=== PATIENT | female | born 1985 | race Two or more races ===

== ENCOUNTER 2016-09-14 17:58 | Emergency (ER) | payer MEDICAID ==
--- NOTE | 2016-09-14 18:05 | ER Document Report ---
ED Medical Screen (RME) - General Stated Complaint: RIGHT LOWER BACK PAIN Notes: heavy lifting today while helping a family member move and twisted funny with sudden right lower back pain. right sciatica. denies UI/SI, saddle anesthesia PMH: htn I have greeted and performed a rapid initial assessment of this patient. A comprehensive ED assessment and evaluation of the patient, analysis of test results and completion of the medical decision making process will be conducted by additional ED providers. TRAVEL OUTSIDE OF THE [place] IN LAST 30 DAYS: No - Related Data Allergies/Adverse Reactions: eggs Allergy (Uncoded 09/14/16 18:05) Past Medical History - Past Medical History Cardiac Medical History: Reports: Hx Hypertension - GESTATIONAL Pulmonary Medical History: Reports: Hx Bronchitis - "I have REactive airway, use inhaler once in awhile" Psychiatric Medical History: Reports: Hx Attention Deficit Hyperactivity Disorder Past Surgical History: Reports: Hx Section - 2, Hx Genitourinary Surgery - Immunizations Immunizations up to date: Yes Hx Diphtheria, Pertussis, Tetanus Vaccination: Yes
[2016-09-14] MEDS ORDERED: IBUPROFEN 800 MG TABLET PO ONE (18:07)
--- NOTE | 2016-09-14 18:44 | ER Document Report ---
ED General - General Chief Complaint: Back Pain Stated Complaint: RIGHT LOWER BACK PAIN Time seen by provider: 18:30 Mode of Arrival: Ambulatory Information source: Patient Notes: 31-year-old female reports sudden onset of right low back pain radiating down the posterior portion of the right thigh while turning to the right to lift an object this morning. He reports intermittently having had discomfort like this in the past but not in several years. She reports she's had cough of green sputum for about 3 days and reports that since this morning coughing has produced some right low back pain since her injury. She denies fever, chills, nausea, vomiting, chest pain, abdominal pain, dysuria, or numbness weakness to any extremity. She denies any urinary or fecal incontinence. Physical Exam: General: Alert, appears well. HEENT: Normocephalic. Atraumatic. Oropharynx is moist mucous membranes Neck: Supple. Non-tender. Respiratory: No respiratory distress. Clear and equal breath sounds bilaterally. Cardiovascular: Regular rate and rhythm. Abdominal: Normal Inspection. Soft, non-tender. No distension. Normal Bowel Sounds. Back: Tender to palpation of the musculature in the right lower lumbar region. This localizes in reproduces patient's pain. No deformity or step off. Extremities: Moves all four extremities. Straight leg raise on the right produces right posterior thigh and low back pain. Patient has 2+ pulses to both feet with brisk upper refill to toes bilaterally Neurological: Speech clear mentation normal intact motor function of both lower extremities Psychological: Normal affect. Normal Mood. Skin: Warm. Dry. Normal color. TRAVEL OUTSIDE OF THE [place] IN LAST 30 DAYS: No - Related Data Allergies/Adverse Reactions: eggs Allergy (Uncoded 09/14/16 18:05) Past Medical History - Social History Smoking Status: Former Smoker Chew tobacco use (# tins/day): No Frequency of alcohol use: None Drug Abuse: None Family History: DM Patient has suicidal ideation: No Patient has homicidal ideation: No - Past Medical History Cardiac Medical History: Reports: Hx Hypertension - GESTATIONAL Pulmonary Medical History: Reports: Hx Bronchitis - "I have REactive airway, use inhaler once in awhile" Renal/ Medical History: Denies: Hx Peritoneal Dialysis Psychiatric Medical History: Reports: Hx Attention Deficit Hyperactivity Disorder Past Surgical History: Reports: Hx Section - 2, Hx Genitourinary Surgery - Immunizations Immunizations up to date: Yes Hx Diphtheria, Pertussis, Tetanus Vaccination: Yes Hx Pneumococcal Vaccination: 08/06/00 Review of Systems - Review of Systems Constitutional: denies: Chills, Fever EENT: denies: Ear pain, Throat pain Cardiovascular: denies: Chest pain Respiratory: Cough Gastrointestinal: denies: Abdominal pain Genitourinary: denies: Burning, Dysuria Musculoskeletal: See HPI Hematologic/Lymphatic: denies: Swollen glands Neurological/Psychological: denies: Weakness, Numbness Physical Exam - Vital signs Vitals: Temp Pulse Resp BP Pulse Ox 98.3 F 100 20 170/90 H 98 09/14/16 18:11 09/14/16 18:11 09/14/16 18:11 09/14/16 18:11 09/14/16 18:11 Course - Re-evaluation Re-evalutation: 09/14/16 18:41 Patient has exam consistent with musculoskeletal low back pain with sciatic involvement. He'll be discharged on tramadol , steroids, and Flexeril and asked to follow with her physician 09/14/16 18:42 - Vital Signs Vital signs: Temp Pulse Resp BP Pulse Ox 98.3 F 100 20 170/90 H 98 09/14/16 18:11 09/14/16 18:11 09/14/16 18:11 09/14/16 18:11 09/14/16 18:11 Discharge - Discharge Clinical Impression: Back pain Qualifiers: Back pain location: low back pain Chronicity: acute Back pain laterality: right Sciatica presence: with sciatica Sciatica laterality: sciatica of right side Qualified Code(s): M54.41 - Lumbago with sciatica, right side Condition: Stable Disposition: HOME, SELF-CARE Instructions: Low Back Pain ([facility]) Prescriptions: Cyclobenzaprine HCl [Flexeril 10 mg Tablet] 10 mg PO TIDP PRN #15 tab PRN Reason: Methylprednisolone [Medrol Dosepack (4 mg/Tab) 21 Tab/Dosepak] 4 mg PO ASDIR PRN #21 tab.ds.pk PRN Reason: Tramadol HCl 50 mg PO BID PRN #20 tablet PRN Reason: For Pain Referrals: LAZARO BUITRAGO, [ACTIVE STAFF] - Follow up as needed
[2016-09-14 19:53] VITALS: BP 144/83
== END 2016-09-14 20:12 | disposition home or self-care (01) ==
LOC: ER 17:58
DX: M54.41 Lumbago with sciatica, right side (principal); Z87.891 Personal history of nicotine dependence; Z91.012 Allergy to eggs
CPT/HCPCS: 99283; J3490

== ENCOUNTER 2016-09-17 14:29 | Emergency (ER) | payer MEDICAID ==
[2016-09-17] MEDS ORDERED: ACETAMINOPHEN 325 MG TABLET PO ONE (15:17)
[2016-09-17] MEDS ORDERED: ONDANSETRON 4 MG TAB.RAPDIS PO ONE (15:34)
--- NOTE | 2016-09-17 15:36 | ER Document Report ---
ED Medical Screen (RME) - General Chief Complaint: Fever, cough Stated Complaint: FEVER,COUGH,DIZZY,LEG PAIN Time seen by provider: 15:35 Mode of Arrival: Ambulatory Information source: Patient Notes: 31-year-old female complaining of cough, congestion, chills, leg pain, dizzy spells and fever of 101. It started yesterday. No flu shot. I have greeted and performed a rapid initial assessment of this patient. A comprehensive ED assessment, evaluation of the patient, analysis of test results , and completion of the medical decision making process will be contacted by additional ED providers. TRAVEL OUTSIDE OF THE [place] IN LAST 30 DAYS: No - Related Data Allergies/Adverse Reactions: eggs Allergy (Uncoded 09/14/16 18:05) Past Medical History - Past Medical History Cardiac Medical History: Reports: Hx Hypertension - GESTATIONAL Pulmonary Medical History: Reports: Hx Bronchitis - "I have REactive airway, use inhaler once in awhile" Renal/ Medical History: Denies: Hx Peritoneal Dialysis Psychiatric Medical History: Reports: Hx Attention Deficit Hyperactivity Disorder Past Surgical History: Reports: Hx Section - 2, Hx Genitourinary Surgery - Immunizations Immunizations up to date: Yes Hx Diphtheria, Pertussis, Tetanus Vaccination: Yes Physical Exam - Vital signs Vitals: Temp Pulse Resp BP Pulse Ox 101.0 F H 106 H 18 150/87 H 95 09/17/16 15:11 09/17/16 15:11 09/17/16 15:11 09/17/16 15:11 09/17/16 15:11 Course - Vital Signs Vital signs: Temp Pulse Resp BP Pulse Ox 101.0 F H 106 H 18 150/87 H 95 09/17/16 15:11 09/17/16 15:11 09/17/16 15:11 09/17/16 15:11 09/17/16 15:11
--- NOTE | 2016-09-17 18:23 | ER Document Report ---
ED Flu Like - General Chief Complaint: Fever Stated Complaint: FEVER,COUGH,DIZZY,LEG PAIN Mode of Arrival: Ambulatory Notes: The patient is a 31-year-old female, PMHx asthma, presents with 1 day of fevers , nausea, vomiting and body aches. Her daughter and son have the flu. She is alternating Tylenol and Motrin and able to drink without vomiting. Denies recent travel, lethargy, seizures, diarrhea or rash. TRAVEL OUTSIDE OF THE [place] IN LAST 30 DAYS: No - Related Data Allergies/Adverse Reactions: eggs Allergy (Uncoded 09/14/16 18:05) Past Medical History - General Information source: Patient - Social History Smoking Status: Never Smoker Family History: DM Patient has suicidal ideation: No Patient has homicidal ideation: No - Past Medical History Cardiac Medical History: Reports: Hx Hypertension - GESTATIONAL Pulmonary Medical History: Reports: Hx Bronchitis - "I have REactive airway, use inhaler once in awhile" Renal/ Medical History: Denies: Hx Peritoneal Dialysis Psychiatric Medical History: Reports: Hx Attention Deficit Hyperactivity Disorder Past Surgical History: Reports: Hx Section - 2, Hx Genitourinary Surgery - Immunizations Immunizations up to date: Yes Hx Diphtheria, Pertussis, Tetanus Vaccination: Yes Hx Pneumococcal Vaccination: 08/06/00 Review of Systems - Review of Systems Notes: REVIEW OF SYSTEMS: CONSTITUTIONAL: +fevers, +chills EENT: -eye pain, -difficulty swallowing, -nasal congestion CARDIOVASCULAR:-chest pain, -syncope. RESPIRATORY: +cough, -SOB GASTROINTESTINAL: -abdominal pain, +nausea, -vomiting, -diarrhea GENITOURINARY: -dysuria, -hematuria MUSCULOSKELETAL: -back pain, -neck pain SKIN: -rash or skin lesions. HEMATOLOGIC: -easy bruising or bleeding. LYMPHATIC: -swollen, enlarged glands. NEUROLOGICAL: -altered mental status or loss of consciousness, -headache, - neurologic symptoms PSYCHIATRIC: -anxiety, -depression. ALL OTHER SYSTEMS REVIEWED AND NEGATIVE. Physical Exam - Vital signs Vitals: Temp Pulse Resp BP Pulse Ox 101.0 F H 106 H 18 150/87 H 95 09/17/16 15:11 09/17/16 15:11 09/17/16 15:11 09/17/16 15:11 09/17/16 15:11 - Notes Notes: PHYSICAL EXAMINATION: GENERAL: Well-appearing, well-nourished and in no acute distress. HEAD: Atraumatic, normocephalic. EYES: Pupils equal round and reactive to light, extraocular movements intact, sclera anicteric, conjunctiva are normal. ENT: nares patent, oropharynx clear without exudates. Moist mucous membranes. NECK: Normal range of motion, supple without lymphadenopathy LUNGS: Mild end expiratory wheezing. No respiratory distress. HEART: Regular rate and rhythm without murmurs ABDOMEN: Soft, nontender, normoactive bowel sounds. No guarding, no rebound. No masses appreciated. EXTREMITIES: Normal range of motion, no pitting or edema. No cyanosis. NEUROLOGICAL: Cranial nerves grossly intact. Normal speech, normal gait. Normal sensory, motor, and reflex exams. PSYCH: Normal mood, normal affect. SKIN: Warm, Dry, normal turgor, no rashes or lesions noted. Course - Re-evaluation Re-evalutation: Patient positive for Flu A. Spoke about risks and benefits of Tamiflu and patient has requested a prescription for Tamiflu. Spoke about symptomatic treatment and she understands. Given return precautions. - Vital Signs Vital signs: Temp Pulse Resp BP Pulse Ox 101.0 F H 106 H 18 150/87 H 95 09/17/16 15:11 09/17/16 15:11 09/17/16 15:11 09/17/16 15:11 09/17/16 15:11 Discharge - Discharge Clinical Impression: Influenza A Condition: Stable Disposition: HOME, SELF-CARE Additional Instructions: UPPER RESPIRATORY ILLNESS: You have a viral infection of the respiratory passages -- a "cold." This common infection causes nasal congestion, drainage, and often sore throat and cough. It is highly contagious. The disease usually lasts about 10 to 14 days. There is no "cure" for the viral infection -- it must run its course. If there is a complication, such as bacterial infection in the nose, sinuses, middle ear, or bronchial tubes, antibiotics may be required. The antibiotics won't affect the virus. Drink plenty of fluids. A humidifier may help. An expectorant medication or decongestant may make you more comfortable. Use acetaminophen or ibuprofen for fever or aches. See the doctor if fever persists over two days, if there is any significant worsening of your symptoms, or if you simply fail to improve as expected. BRONCHOSPASM: You have tightness in the bronchial tubes, called bronchospasm. This often occurs with bronchial infections. Allergies, inhaled chemicals, and polluted or cold air can also provoke bronchospasm. It's more likely in patients with asthma in the family. Emergency treatment of bronchospasm may include adrenaline shots or bronchodilator aerosol. You may feel lightheaded and have a rapid pulse for an hour or two. Rest and get plenty of fluids. At home, we'll treat you with a bronchodilator inhaler. Antibiotics and corticosteroids may be required for some patients. Until you recover, avoid chemical fumes, dusts, pollens, and exercising in very cold or dry air. If you smoke, stop now!! If you develop a fever, increased wheezing, chest pain, or severe shortness of breath, you should contact the doctor immediately. DECONGESTANT MEDICATION: A decongestant medicine has been prescribed. Often this medicine is combined in the same tablet with an antihistamine or expectorant. This type of medicine is helpful in treating a bad cold or sinus condition, as well as in treatment of the nasal congestion of hay fever. It is not of much benefit for lung infections. Decongestant medicines are related to stimulants. They can cause an increase in blood pressure and heart rate. Persons with heart disease and high blood pressure should not take decongestants without discussing this with the physician. If you develop palpitations, chest pain, headache, or tremors, stop the medicine and consult your physician. COUGH-SUPPRESSANT & EXPECTORANT MEDICATION: You are to use a cough medication as needed for relief of symptoms. This medicine is a combination of an expectorant (to make the mucous thinner and more easily "coughed up") and a cough suppressant (to reduce the frequency of coughing). The cough-suppressant medicine is related to narcotics. You may experience mild nausea and sleepiness. Some patients who are very sensitive to narcotics may have stomach pain from this medicine. Taking the medicine with food reduces these side effects. Do not drive or work with machinery until you know how this medicine affects you. The expectorant should have no side effects. Iodine-containing expectorants (such as organidin) should not be taken by persons with active thyroid disease unless approved by your doctor. Call the doctor if you develop shortness of breath, hives, rash, itching, lightheadedness, or severe nausea and vomiting. INHALED BRONCHODILATORS: You have received a treatment of and/or prescription for an inhaled bronchodilator -- a medication which stimulates the airways in the lung to dilate. This improves the flow of air in asthma, bronchitis, and emphysema. These medicines have some similarity to adrenaline, and can cause similar side effects: shakiness, racing heart, and a sense of nervousness. These side effects decrease with time. Contact your doctor if these side effects are severe. Do not over-use the medicine. Too-frequent use of the inhaler may make it ineffective. Call your doctor if the inhaler is not controlling your symptoms at the prescribed doses. USE OF ACETAMINOPHEN (Tylenol): Acetaminophen may be taken for pain relief or fever control. It's much safer than aspirin, offering a wider range of "safe" dosages. It is safe during . Some brand names are Tylenol, Panadol, Datril, Anacin 3, Tempra, and Liquiprin. Acetaminophen can be repeated every four hours. The following are maximum recommended dosages: >89 pounds or adults 650 mg to 900 mg Acetaminophen can be repeated every four hours. Maximum dose not to exceed 4000 mg a day. SMOKING: If you smoke, you should stop smoking. The tar and chemicals in cigarette smoke are harmful. Smoking has been shown to cause: emphysema chronic bronchitis lung cancer mouth and throat cancer stomach and pancreas cancer premature aging defects In addition, smoking increases ear and lung infections in children of smokers. FOLLOW-UP CARE: If you have been referred to a physician for follow-up care, call the physician s office for an appointment as you were instructed or within the next two days. If you experience worsening or a significant change in your symptoms, notify the physician immediately or return to the Emergency Department at any time for re-evaluation. INFLUENZA: The physician feels that you have influenza -- the "flu". Influenza is an infection caused by a virus. Symptoms include generalized aching, fever, headache, dry cough, and fatigue. Some patients with the flu also have nausea, vomiting, and diarrhea. The fever and aches usually last two to four days, with the cough persisting another one to two weeks. Treatment of the flu, for the most part, is simply treatment of symptoms. Rest, drink plenty of fluids, and use acetaminophen for fever and aches. Do not take aspirin. There is an anti-viral medication, called Tamiflu, which may help in "type A" flu, but it's not helpful in every case of flu, and only works if started within the first 24 - 48 hours of the start of symptoms. The physician will determine whether this medication can help you. To prevent spread of the virus, use good handwashing. Shared toys should be cleaned with disinfectant. Clean the toilets, sinks, and counter surfaces in bathrooms. Launder clothing in hot water. What are conditions that should receive medical attention? The development of difficulty breathing. Lip color changes to blue or purple. Persistent vomiting and unable to keep liquids down with signs of dehydration such as: dizziness when standing, unable to urinate, or if child/ is crying no tears are noticed. Is less responsive than normal or becomes confused. How do I decrease the spread of flu in my home? Taking care of the sick patient at home: Keep the sick person in a room separate from the common areas of the house. Keep the "sickroom" door closed. If the person with the flu needs to leave the home, they should cover their nose/mouth when coughing or sneezing and wear a disposable (surgical) mask if available. These masks may be available at your local pharmacy, medical supply and hardware store. If the sick person is in common areas of the house, have them wear a surgical mask. If possible, have the sick person use a separate bathroom that should be cleaned daily with a household disinfectant. If you are the caregiver: Avoid being face to face with the sick adult person as much as possible. Try to stay at least 6 feet away and wear a disposable surgical mask when possible. When holding small children who are sick, place their chin on your shoulder so that they will not cough in your face. Wash your hands after you touch the sick person or handle their tissues and laundry. Wear a mask if you leave home, as you may be infected from taking care of someone and not know it yet. Watch yourself and others in the home for flu symptoms and contact your doctor if symptoms occur. NOTE: Antiviral medication used to reduce the symptoms of the flu works only if taken within 48 hours, and best within 24 hours of symptom onset. Household Cleaning, laundry and waste disposal: Tissues and other disposable items used by the sick person should be thrown away in the trash. Wash your hands after touching these used items. No special waste disposal is required. Keep surfaces (especially bedside tables, bathroom surfaces, and toys for children) clean by wiping them down with a safe household disinfectant according to the directions on the product label. Per Center for Disease Control advice, most people will not receive testing to confirm flu. Also based on the person's health history and onset of symptoms, not all patients will receive prescriptions for antiviral medications. If you have questions related to this, please ask your healthcare provider. For more information, you can call the Centers for Disease Control and Prevention (CDC) Hotline at 3-948-HIVPEAK-IT This line is available in French and [place], 24 hours a day, 7 days a week. Or www.[employer] or www.cdc.gov Flu-Like Illness Home Instructions: The influenza virus infection can cause a wide rage of symptoms, including: Fever, cough, sore throat, body aches, headaches, chills, fatigue, with some patients reporting diarrhea and vomiting Like seasonal influenza A, H1N1 ("swine flu")in humans can vary in severity from mild to severe Severe illness with pneumonia, respiratory failure and even is possible Certain groups might be more likely to develop a severe illness from H1N1 infection. Sometimes bacterial infections may occur at the same time as or after infection with influenza viruses and lead to pneumonias, ear infections, or sinus infections. How Flu Spreads The main way that influenza viruses spread is through respiratory droplets of coughs and sneezes. This can happen when someone with the infection coughs or sneezes and the particles fly through the air and land on other people and surfaces. If the person covers their mouth and nose with their hand but does not wash their hands immediately, then these germs are passed onto the next object that they touch. People with Influenza A or suspected H1N1 (swine flu) who are cared for at home should: Check with their doctor about any special care that they might need if they are or have a health condition such as diabetes, heart disease, asthma or emphysema. Also, limit caregiver to one (if possible). women or those with chronic health conditions should not take care of the flu patient unless necessary. Check with their doctor about whether or not medications are needed that may lessen the symptoms of the flu. Stay at home until 24 hours fever free without the use of fever reducing medication. Get plenty of rest and avoid other healthy people in your home. Drink plenty of clear liquids to keep from getting dehydrated. Take medications like Tylenol (Acetaminophen), Advil/Motrin/Nuprin ( Ibuprofen) or Aleve (Naproxen) for fevers and aches. All children under the age of 18 years of age should not take aspirin or products containing aspirin (e.g. Pepto Bismol), as this can cause a rare serious illness called Mode Syndrome. Over the counter medications for flu and colds may help, but it is very important to follow the package directions. Remember that the medicine may help the symptoms, but it will not help prevent others from getting sick if they are around you. Cover coughs and sneezes using your bent arm. Clean hands with soap and water or an alcohol-based hand rub often, especially after using tissues to cough or sneeze. Encourage hand washing frequently for all people living in the home! The sick person should not have visitors other than caregivers. Encourage concerned loved ones to call instead of visit. Avoid close contact with others-do not go to work or school while sick. USE OF ACETAMINOPHEN (Tylenol): Acetaminophen may be taken for pain relief or fever control. It's much safer than aspirin, offering a wider range of "safe" dosages. It is safe during . Some brand names are Tylenol, Panadol, Datril, Anacin 3, Tempra, and Liquiprin. Acetaminophen can be repeated every four hours. The following are maximum recommended dosages: WEIGHT Dose Drops Elixir Chewable( 80mg) (LBS.) drprs=droppers tsp=teaspoon 6 40 mg 0.4 ml (1/2) 6-11 80 mg 0.8 ml (full) tsp 1 tab 12-16 120 mg 1 1/2 drprs 3/4 tsp 1 1/2 tabs 17-23 160 mg 2 drprs 1 tsp 2 tabs 24-30 240 mg 3 drprs 1 1/2 tsp 3 tabs 30-35 320 mg 2 tsp 4 tabs 36-41 360 mg 2 1/4 tsp 4 1/2 tabs 42-47 400 mg 2 1/2 tsp 5 tabs 48-53 480 mg 3 tsp 6 tabs 54-59 520 mg 3 1/4 tsp 6 1/2 tabs 60-64 560 mg 3 1/2 tsp 7 tabs 65-70 600 mg 3 3/4 tsp 7 1/2 tabs 71-76 640 mg 4 tsp 8 tabs 77-82 720 mg 4 1/2 tsp 9 tabs 83-88 800 mg 5 tsp 10 tabs >89 pounds or adults 650 mg to 900 mg Acetaminophen can be repeated every four hours. Maximum dose not to exceed 4000 mg a day. These maximum recommended dosages are slightly higher than the dosages written on the product container, but these dosages are very safe. FOLLOW-UP CARE: If you have been referred to a physician for follow-up care, call the physician s office for an appointment as you were instructed or within the next two days. If you experience worsening or a significant change in your symptoms, notify the physician immediately or return to the Emergency Department at any time for re-evaluation. Prescriptions: Albuterol Sulfate [Proair HFA Inhalation Aerosol 8.5 gm MDI] 2 puff IH Q4H PRN # 1 mdi PRN Reason: Ondansetron [Zofran Odt 4 mg Tablet] 1 - 2 tab PO Q4H PRN #15 tab.rapdis PRN Reason: For Nausea/Vomiting Oseltamivir Phosphate [Tamiflu] 75 mg PO BID #10 capsule Referrals: LEATHA TALBERT DO [Primary Care Provider] - Follow up as needed
[2016-09-17 19:04] VITALS: BP 138/87
== END 2016-09-17 19:02 | disposition home or self-care (01) ==
LOC: ER 14:29
DX: J09.X2 Influenza due to identified novel influenza A virus with other respiratory manifestations (principal); R50.9 Fever, unspecified; R05 Cough; R42 Dizziness and giddiness; M79.606 Pain in leg, unspecified
CPT/HCPCS: 99283; 87804; J3490; S0119

== ENCOUNTER 2016-12-26 15:33 | Emergency (ER) | payer MEDICAID ==
[2016-12-26] MEDS ORDERED: IPRATROPIUM/ALBUTEROL 0.5-2.5 MG/3 ML AMPUL NEB ONE (17:04)
--- NOTE | 2016-12-26 17:49 | RADIOLOGY REPORT (SQ) ---
EXAM DESCRIPTION: CHEST PA/LAT COMPLETED DATE/TIME: 12/26/2016 5:38 pm REASON FOR STUDY: 34- SOB, cough COMPARISON: 03/11/2016 EXAM PARAMETERS: NUMBER OF VIEWS: two views TECHNIQUE: Digital Frontal and Lateral radiographic views of the chest acquired. RADIATION DOSE: NA LIMITATIONS: none FINDINGS: LUNGS AND PLEURA: No opacities, masses or pneumothorax. No pleural effusion. MEDIASTINUM AND HILAR STRUCTURES: No masses or contour abnormalities. HEART AND VASCULAR STRUCTURES: Heart normal size. No evidence for failure. BONES: No acute findings. HARDWARE: None in the chest. OTHER: No other significant finding. IMPRESSION: NO SIGNIFICANT RADIOGRAPHIC FINDING IN THE CHEST. TECHNICAL DOCUMENTATION: JOB ID: [id number] [employer]- All Rights Reserved
--- NOTE | 2016-12-26 18:17 | ER Document Report ---
HPI - HPI Patient complains to provider of: cough, sob Onset: Last week Onset/Duration: Sudden Severity: Moderate Pain Level: 3 Context: Patient presents to the emergency department with complaints shortness of breath wheezing and coughing week and a half. Reports no product with cough. Reports she has been using her son's neb treatments without relief of symptoms. Patient is obviously winded when she talks. RR even/unlabored. She denies fever vomiting diarrhea. Chest pain. Reports trip to [place] roughly 1 week ago but reports she was short of breath and coughing before the trip. Associated Symptoms: Shortness of breath Exacerbated by: Denies Relieved by: Denies Similar symptoms previously: No Recently seen / treated by doctor: No - CARDIOVASCULAR Cardiovascular: DENIES: Chest pain - REPRODUCTIVE Reproductive: DENIES: : - DERM Skin Color: Normal, [place] Past Medical History - General Information source: Patient - 2 weeks ago - Social History Smoking Status: Never Smoker Chew tobacco use (# tins/day): No Frequency of alcohol use: None Drug Abuse: None Lives with: Family Family History: DM - Past Medical History Cardiac Medical History: Reports: Hx Hypertension - GESTATIONAL Pulmonary Medical History: Reports: Hx Bronchitis - "I have REactive airway, use inhaler once in awhile" Renal/ Medical History: Denies: Hx Peritoneal Dialysis Psychiatric Medical History: Reports: Hx Attention Deficit Hyperactivity Disorder Past Surgical History: Reports: Hx Section - 2, Hx Genitourinary Surgery - Immunizations Immunizations up to date: Yes Hx Diphtheria, Pertussis, Tetanus Vaccination: Yes Hx Pneumococcal Vaccination: 08/06/00 Vertical Provider Document - CONSTITUTIONAL Agree With Documented VS: Yes Exam Limitations: No Limitations General Appearance: WD/WN, No Apparent Distress - INFECTION CONTROL TRAVEL OUTSIDE OF THE [place] IN LAST 30 DAYS: No - HEENT HEENT: Atraumatic, Normocephalic - NECK Neck: Normal Inspection, Supple. negative: Lymphadenopathy-Left, Lymphadenopathy-Right - RESPIRATORY Respiratory: No Respiratory Distress O2 Sat by Pulse Oximetry: 97 - CARDIOVASCULAR Cardiovascular: Regular Rate, Regular Rhythm - GI/ABDOMEN Gastrointestinal: Abdomen Soft - obese - MUSCULOSKELETAL/EXTREMETIES Musculoskeletal/Extremeties: BEATRICE GARCIA - NEURO Level of Consciousness: Awake, Alert, Appropriate Motor/Sensory: No Motor Deficit - DERM Integumentary: Warm, Dry Course - Re-evaluation Re-evalutation: 12/26/16 18:20 Reports she felt a little better after DuoNeb. slight wheeze noted 12/26/16 19:36 Reports she feels much better after nebulizer treatments. Patient instructed on the importance of follow-up with primary care provider instructed on steroids. She verbalized understanding to all instructions. Patient was ambulated around the emergency department her O2 sat that dropped to 94% at one time but it came right back up. She reports she feels much better. 12/26/16 20:26 Patient's blood pressure was 120/102 on discharge. I was not notified. Patient is 4'11 and 141 kg, I wonder if the cuff was fitting correctly. - Vital Signs Vital signs: Temp Pulse Resp BP Pulse Ox 97.9 F 97 16 185/104 H 97 12/26/16 16:20 12/26/16 16:20 12/26/16 16:55 12/26/16 16:20 12/26/16 16:20 - Diagnostic Test Radiology reviewed: Image reviewed, Reports reviewed - Diagnostic report text EXAM DESCRIPTION: CHEST PA/LAT COMPLETED DATE/TIME: 12/26/2016 5:38 pm REASON FOR STUDY: 34- SOB, cough COMPARISON: 03/11/2016 EXAM PARAMETERS: NUMBER OF VIEWS: two views TECHNIQUE: Digital Frontal and Lateral radiographic views of the chest acquired. RADIATION DOSE: NA LIMITATIONS: none FINDINGS: LUNGS AND PLEURA: No opacities, masses or pneumothorax. No pleural effusion. MEDIASTINUM AND HILAR STRUCTURES: No masses or contour abnormalities. HEART AND VASCULAR STRUCTURES: Heart normal size. No evidence for failure. BONES: No acute findings. HARDWARE: None in the chest. OTHER: No other significant finding. IMPRESSION: NO SIGNIFICANT RADIOGRAPHIC FINDING IN THE CHEST Discharge - Discharge Clinical Impression: cough, wheeze, Elevated blood pressure reading Condition: Stable Disposition: HOME, SELF-CARE Instructions: Steroid Medication, Oral Narcotic Medication ([facility]) Additional Instructions: *You have been evaluated for cough, wheeze, elevated blood pressure *Increase fluid intake *Take medication as prescribed *Monitor your temperature, take Tylenol as indicated *Follow up with a primary care provider within 3 days *Return to ED for worsening condition, changes, needs, trouble breathing, concerns Monitor your blood pressure. Your blood pressure was elevated today. This may be because you were anxious, in pain or because you need medication. It is important to follow up with your primary care provider for full evaluation. Prescriptions: Hydrocodone/Acetaminophen [[place] 5-325 Tablet] 1 each PO QID #15 tablet Forms: Elevated Blood Pressure Referrals: MANJIT RAY PA-C [Primary Care Provider] - Follow up in 3-5 days
[2016-12-26] MEDS ORDERED: ALBUTEROL SULFATE 0.083% NEB 2.5 MG/3 ML AMPUL NEB ONE (18:18)
[2016-12-26] MEDS ORDERED: PREDNISONE 20 MG TABLET PO ONE (19:36)
[2016-12-26] MEDS ORDERED: ALBUTEROL SULFATE HFA (90 MCG/PUFF) 8 GM MDI (1 MDI/ER DISP) IH ONE (19:36)
[2016-12-26 20:09] VITALS: BP 120/102
== END 2016-12-26 20:10 | disposition home or self-care (01) ==
LOC: ER 15:33
DX: R05 Cough (principal); R06.2 Wheezing; R06.02 Shortness of breath; R03.0 Elevated blood-pressure reading, without diagnosis of hypertension
CPT/HCPCS: 94640 ×2; 99285; 71020; J7512; J3490; J7620

== ENCOUNTER 2017-04-20 18:31 | Emergency (ER) | payer MEDICAID ==
--- NOTE | 2017-04-20 19:32 | ER Document Report ---
ED General - General Chief Complaint: Wrist Pain Stated Complaint: LEFT HAND PAIN Time Seen by Provider: 04/20/17 18:57 Mode of Arrival: Ambulatory Information source: Patient Notes: Patient is a 31 year old female who presents with left thumb pain that stared 2- 3 days ago. 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 The pain is localized to around the base of the thumb and is worse when she tries to touch her thumb to her third fourth and fifth finger. She endorses associated swelling. She has not taken any pain medication for this including Tylenol or Motrin. She denies any erythema, warmth, numbness, tingling, fever or chills. TRAVEL OUTSIDE OF THE [place] IN LAST 30 DAYS: No - Related Data Allergies/Adverse Reactions: No Known Allergies Allergy (Verified 04/20/17 18:41) Past Medical History - General Information source: Patient - Social History Smoking Status: Never Smoker Chew tobacco use (# tins/day): No Frequency of alcohol use: None Drug Abuse: None Family History: DM - Past Medical History Cardiac Medical History: Reports: Hx Hypertension - GESTATIONAL Pulmonary Medical History: Reports: Hx Bronchitis - "I have REactive airway, use inhaler once in awhile" Renal/ Medical History: Denies: Hx Peritoneal Dialysis Psychiatric Medical History: Reports: Hx Attention Deficit Hyperactivity Disorder Past Surgical History: Reports: Hx Section - 2, Hx Cholecystectomy, Hx Genitourinary Surgery - Immunizations Immunizations up to date: Yes Hx Diphtheria, Pertussis, Tetanus Vaccination: Yes Hx Pneumococcal Vaccination: 08/06/00 Review of Systems - Review of Systems Constitutional: See HPI EENT: No symptoms reported Cardiovascular: No symptoms reported Respiratory: No symptoms reported Gastrointestinal: No symptoms reported Genitourinary: No symptoms reported Female Genitourinary: No symptoms reported Musculoskeletal: See HPI Skin: See HPI Hematologic/Lymphatic: No symptoms reported Neurological/Psychological: No symptoms reported Physical Exam - Vital signs Vitals: Temp Pulse Resp BP Pulse Ox 99.1 F 104 H 16 171/113 H 96 04/20/17 18:40 04/20/17 18:40 04/20/17 18:40 04/20/17 18:40 04/20/17 18:40 Interpretation: Hypertensive - Notes Notes: PHYSICAL EXAM: CONSTITUTIONAL: Alert and oriented, well-appearing and in no acute distress. HENT: Normocephalic, atraumatic. Moist mucous membranes. EYES: Pupils equal round and reactive to light, EOM intact. Sclera anicteric, conjunctiva are normal. No entrapment. HEART: Regular rate and rhythm without murmurs. LUNGS: CTAB and equal. No wheezes, rales or rhonchi. EXTREMITIES: Left thumb - tender to palpation along adductor pollicis muscle and along thenar eminence. ROM in full adduction limited secondary to pain. No pitting edema. No cyanosis. Cap Refill <3 seconds. Distal pulses intact. NEURO: Cranial nerves grossly intact. Normal sensory/motor exams. PSYCH: Normal mood, normal affect. SKIN: Warm and dry. Normal turgor. No rashes or lesions noted. Course - Re-evaluation Re-evalutation: 04/20/17 19:32 Patient seen and examined. Will obtain xray. Neurovascular intact. No obvious deformity. Given PO pain medications. 04/20/17 20:22 Reviewed imaging studies - negative for acute bony abnormality. Reviewed results with patient. Will give thumb spica splint and script for pain medications. Advised f/u with ortho - will provide contact information. At this time, will discharge with return precautions and follow-up recommendations. Verbal discharge instructions given at the bedside and opportunity for questions given. Medication warnings reviewed. Patient is in agreement with this plan and has verbalized understanding of return precautions and the need for primary care follow-up in the next 24-72 hours. 04/20/17 20:33 Reviewed patient's blood pressure with her. Rechecked and diastolic in 110. Will start her today on HCTZ. She states she is aware of her blood pressure and has gone up because she has gained weight. She is not on any medications at this time. She denies any dizziness, blurred vision,chest pain, SOB or peripheral edema. Advised that she must follow-up with her primary care doctor for BP management. - Vital Signs Vital signs: Temp Pulse Resp BP Pulse Ox 99.1 F 104 H 16 171/113 H 96 04/20/17 18:40 04/20/17 18:40 04/20/17 18:40 04/20/17 18:40 04/20/17 18:40 Procedures - Immobilization Right Thumb Pre-Proc Neuro Vasc Exam: Normal Immobilizer type: Thumb spica Performed by: PCT Post-Proc Neuro Vasc Exam: Normal Alignment checked and good: Yes Discharge - Discharge Clinical Impression: Injury, thumb Qualifiers: Encounter type: initial encounter Laterality: left Qualified Code(s): S69.92XA - Unspecified injury of left wrist, hand and finger(s), initial encounter Condition: Stable Disposition: HOME, SELF-CARE Instructions: Family Physicians / Practices Additional Instructions: We have given a splint for your thumb and we recommend that you follow-up with orthopedics. You have been provided with their contact information. You also need to follow-up with a primary care doctor. You have been given a prescription for a blood pressure medication but you also need to go to [facility] or the pharmacy and have your BP checked daily and take the readings to your doctor. Myalagia (Muscle Pain) Myalgia is pain in the muscles. We use the word myalgia to describe muscle pain where there's no history of injury, no known muscle disease, and the muscles are normal to examination. Myalgias can be a symptom of an acute illness , such as influenza, hepatitis, or any viral illness, especially with fever. Sometimes the muscle pain comes before any other symptoms. Myalgia can also be an early symptom of inflammatory muscle disease, such as lupus. If myalgia is accompanied by an acute illness that explains the muscle pain , then no further testing needs to be done. When there's no clear reason for the pain, tests may be done to see if there's an inflammatory or other disease of the muscles. The usual treatment for myalgias is anti-inflammatory medication, such as ibuprofen. Muscle aches may be soothed with a heating pad or hot compress. If muscles remain painful for more than a few days, you'll need testing and followup. Return if a muscle becomes swollen, red, or severely painful. Sprained Thumb You have a sprain of the thumb. A sprain is an over-stretching or tearing of the ligaments which guard the joint. The injury may require a few weeks of protection while it heals. The usual treatment is ice packs, elevation, and rest of the thumb. A splint is usually placed. Because the thumb is more vulnerable to re-injury than the fingers, it often must be protected by a heavy splint for a surprisingly long time. Healing can take three to six weeks. Your physician has assessed the seriousness of the ligament injury in your thumb and has outlined the initial treatment plan. Understand that this treatment may change, depending on how your thumb progresses. If further exams were recommended, it's important that you follow up as instructed. Call the doctor any time if swelling or pain becomes severe, or if numbness develops in the thumb. Anti-Inflammatory Medication You have received a prescription for an antiinflammatory agent. This is an excellent, safe drug for pain control. In addition, it has potent antiinflammatory effects which are beneficial, especially in the treatment of injuries, arthritis, or tendonitis. It's best to take this medicine with food. Persons with ulcer disease or allergy to aspirin should notify their physician of this before taking this drug. Take the medication exactly as prescribed. Don't take additional doses unless instructed to do so by your doctor. If you develop wheezing, shortness of breath, hives, faintness, stomach pain, vomiting, or dark black stools, return for re-evaluation at once. High Blood Pressure When your blood pressure was taken today it was elevated. Today's reading was 173/113 . Pre-hypertension/Hypertension: The patient has been informed that they may have pre-hypertension or Hypertension based on a blood pressure reading in the emergency department. I recommend that the patient call the primary care provider listed on their discharge instructions or a physician of their choice this wee to arrange follow up for further evaluation of possible pre- hypertension or Hypertension. Sometimes, stress or illness causes a temporary elevation of your blood pressure. We suggest that you get your blood pressure measured three more times during the next few days to see if this is more than a temporary abnormality. If your blood pressure is greater than 150/90 on each occasion, you must have treatment. Some simple things you can do to help are: If you have blood pressure medicine but aren't using it regularly, start taking it again. Get some aerobic exercise for at least 20 minutes on a daily basis. (See your doctor before beginning a new exercise program.) Eat a low-fat diet. Lose excess weight. Avoid salty foods and avoid adding salt to any of the foods you eat. Avoid diet pills, decongestants, "energizing" herbs, and other medicines that elevate blood pressure. If left untreated, hypertension greatly enhances your risk for developing heart disease and strokes. Please don't ignore this problem. FOLLOW-UP CARE: If you have been referred to a physician for follow-up care, call the physician s office for an appointment as you were instructed or within the next two days. If you experience worsening or a significant change in your symptoms, notify the physician immediately or return to the Emergency Department at any time for re-evaluation. Prescriptions: Hydrochlorothiazide [Hydrodiuril 12.5 mg Capsule] 12.5 mg PO QAM #30 capsule Naproxen [Naprosyn 250 mg Tablet] 250 mg PO BID #20 tablet Forms: Elevated Blood Pressure
--- NOTE | 2017-04-20 19:59 | RADIOLOGY REPORT (SQ) ---
EXAM DESCRIPTION: HAND LEFT 3 VIEWS COMPLETED DATE/TIME: 04/20/2017 7:52 pm REASON FOR STUDY: left thumb pain COMPARISON: None. EXAM PARAMETERS: NUMBER OF VIEWS: Three views. TECHNIQUE: AP, lateral and oblique radiographic images acquired of the left hand. LIMITATIONS: None. FINDINGS: MINERALIZATION: Normal. BONES: No acute fracture or dislocation. No worrisome bone lesions. No significant osteophytes. JOINTS: No erosions. No bettina-articular osteopenia. No chondrocalcinosis. SOFT TISSUES: No swelling. No calcifications. OTHER: No other significant finding. IMPRESSION: NEGATIVE STUDY OF THE LEFT HAND. NO EXPLANATION FOR PAIN. TECHNICAL DOCUMENTATION: JOB ID: [id number] [employer]- All Rights Reserved
[2017-04-20] MEDS ORDERED: KETOROLAC TROMETHAMINE 10 MG TABLET PO ONE (20:05)
[2017-04-20 21:13] VITALS: BP 173/116
== END 2017-04-20 21:10 | disposition home or self-care (01) ==
LOC: ER 18:31
PROC: 2W3GX1Z Immobilization of Right Thumb using Splint (ICD-10-PCS; principal; 2017-04-20)
DX: S69.92XA Unspecified injury of left wrist, hand and finger(s), initial encounter (principal); M25.532 Pain in left wrist; M79.89 Other specified soft tissue disorders; X58.XXXA Exposure to other specified factors, initial encounter
CPT/HCPCS: 99283; 73130; 29130; J3490

== ENCOUNTER 2017-07-29 15:56 | Emergency (ER) | payer MEDICAID ==
[2017-07-29 16:02] VITALS: BP 176/86
--- NOTE | 2017-07-29 16:37 | ER Document Report ---
ED Flu Like - General Chief Complaint: Flu Symptoms Stated Complaint: POSSIBLE FLU Time Seen by Provider: 07/29/17 16:16 Mode of Arrival: Ambulatory Information source: Patient Notes: 32-year-old female presents to ED for complaint of cough cold flu symptoms with fever body aches and sore throat. She states she has had a red swollen throat the last 2 days. TRAVEL OUTSIDE OF THE [place] IN LAST 30 DAYS: No - HPI Onset: Other - Couple days Timing/Duration: Persistent Quality of pain: Burning, Other Severity: Moderate Pain Level: 3 Associated symptoms: Nonproductive cough, Rhinnorhea, Sinus pain/drainage, Sore throat Similar symptoms previously: No Recently seen / treated by doctor: No - Related Data Allergies/Adverse Reactions: No Known Allergies Allergy (Verified 07/29/17 15:59) Past Medical History - General Information source: Patient - Social History Smoking Status: Former Smoker - Electrical cigarette now Cigarette use (# per day): No - States she smokes and electrical cigarettes but does not smoke tobacco Chew tobacco use (# tins/day): No Frequency of alcohol use: None Drug Abuse: None Occupation: Mom Lives with: Family Family History: DM. denies: Arthritis, CAD, COPD, CVA, Hyperlipidemia, Hypertension, Malignancy, Thyroid Disfunction Patient has suicidal ideation: No Patient has homicidal ideation: No - Medical History Medical History: Other - Morbidly obese - Past Medical History Cardiac Medical History: Reports: Hx Hypertension Pulmonary Medical History: Reports: Hx Asthma, Hx Bronchitis - "I have REactive airway, use inhaler once in awhile" EENT Medical History: Reports: None Neurological Medical History: Reports: None Endocrine Medical History: Reports: None Renal/ Medical History: Reports: None Malignancy Medical History: Reports: None GI Medical History: Reports: None Musculoskeltal Medical History: Reports None Skin Medical History: Reports None Psychiatric Medical History: Reports: Hx Attention Deficit Hyperactivity Disorder Traumatic Medical History: Reports: None Infectious Medical History: Reports: None Past Surgical History: Reports: Hx Section - 2, Hx Cholecystectomy - Immunizations Immunizations up to date: Yes Hx Diphtheria, Pertussis, Tetanus Vaccination: Yes Hx Pneumococcal Vaccination: 08/06/00 Review of Systems - Review of Systems Constitutional: Recent illness EENT: Nose discharge, Sinus discharge, Throat pain, Mouth pain Cardiovascular: No symptoms reported Respiratory: Cough Gastrointestinal: No symptoms reported Genitourinary: No symptoms reported Female Genitourinary: No symptoms reported Musculoskeletal: No symptoms reported Skin: No symptoms reported Hematologic/Lymphatic: No symptoms reported Neurological/Psychological: No symptoms reported -: Yes All other systems reviewed and negative Physical Exam - Vital signs Vitals: Temp Pulse Resp BP Pulse Ox 99.0 F 103 H 18 176/86 H 98 07/29/17 16:01 07/29/17 16:01 07/29/17 16:01 07/29/17 16:01 07/29/17 16:01 Interpretation: Normal - General General appearance: Appears well, Alert - HEENT Head: Normocephalic, Atraumatic Eyes: Normal Pupils: PERRL Ears: Normal External canal: Normal Tympanic membrane: Normal Sinus: Normal Nasal: Purulent discharge, Swelling Mouth/Lips: Normal Pharynx: Erythema - Upper palate, Post nasal drainage, Tonsillar hypertrophy. No: Exudate Neck: Normal - Respiratory Respiratory status: No respiratory distress Chest status: Nontender Breath sounds: Normal Chest palpation: Normal - Cardiovascular Rhythm: Regular Heart sounds: Normal auscultation Murmur: No - Abdominal Inspection: Normal Distension: No distension Bowel sounds: Normal Tenderness: Nontender Organomegaly: No organomegaly - Back Back: Normal, Nontender - Extremities General upper extremity: Normal inspection, Nontender, Normal color, Normal ROM , Normal temperature General lower extremity: Normal inspection, Nontender, Normal color, Normal ROM , Normal temperature, Normal weight bearing. No: Elida's sign - Neurological Neuro grossly intact: Yes Cognition: Normal Orientation: AAOx4 Raf Coma Scale Eye Opening: Spontaneous [place] Coma Scale Verbal: Oriented Raf Coma Scale Motor: Obeys Commands [place] Coma Scale Total: 15 Speech: Normal Motor strength normal: LUE, RUE, LLE, RLE Sensory: Normal - Psychological Associated symptoms: Normal affect, Normal mood - Skin Skin Temperature: Warm Skin Moisture: Dry Skin Color: Normal Course - Vital Signs Vital signs: Temp Pulse Resp BP Pulse Ox 99.0 F 103 H 18 176/86 H 98 07/29/17 16:01 07/29/17 16:01 07/29/17 16:01 07/29/17 16:01 07/29/17 16:01 Discharge - Discharge Clinical Impression: URI (upper respiratory infection) Qualifiers: URI type: unspecified URI Qualified Code(s): J06.9 - Acute upper respiratory infection, unspecified Condition: Stable Disposition: HOME, SELF-CARE Instructions: Family Physicians / Practices Additional Instructions: UPPER RESPIRATORY ILLNESS: You have a viral infection of the respiratory passages -- a "cold." This common infection causes nasal congestion, drainage, and often sore throat and cough. It is highly contagious. The disease usually lasts about 10 to 14 days. There is no "cure" for the viral infection -- it must run its course. If there is a complication, such as bacterial infection in the nose, sinuses, middle ear, or bronchial tubes, antibiotics may be required. The antibiotics won't affect the virus. Drink plenty of fluids. A humidifier may help. An expectorant medication or decongestant may make you more comfortable. Use acetaminophen or ibuprofen for fever or aches. See the doctor if fever persists over two days, if there is any significant worsening of your symptoms, or if you simply fail to improve as expected. BRONCHOSPASM: You have tightness in the bronchial tubes, called bronchospasm. This often occurs with bronchial infections. Allergies, inhaled chemicals, and polluted or cold air can also provoke bronchospasm. It's more likely in patients with asthma in the family. Emergency treatment of bronchospasm may include adrenaline shots or bronchodilator aerosol. You may feel lightheaded and have a rapid pulse for an hour or two. Rest and get plenty of fluids. At home, we'll treat you with a bronchodilator inhaler. Antibiotics and corticosteroids may be required for some patients. Until you recover, avoid chemical fumes, dusts, pollens, and exercising in very cold or dry air. If you smoke, stop now!! If you develop a fever, increased wheezing, chest pain, or severe shortness of breath, you should contact the doctor immediately. COUGH-SUPPRESSANT & EXPECTORANT MEDICATION: You are to use a cough medication as needed for relief of symptoms. This medicine is a combination of an expectorant (to make the mucous thinner and more easily "coughed up") and a cough suppressant (to reduce the frequency of coughing). The cough-suppressant medicine is related to narcotics. You may experience mild nausea and sleepiness. Some patients who are very sensitive to narcotics may have stomach pain from this medicine. Taking the medicine with food reduces these side effects. Do not drive or work with machinery until you know how this medicine affects you. The expectorant should have no side effects. Iodine-containing expectorants (such as organidin) should not be taken by persons with active thyroid disease unless approved by your doctor. Call the doctor if you develop shortness of breath, hives, rash, itching, lightheadedness, or severe nausea and vomiting. INHALED BRONCHODILATORS: You have received a treatment of and/or prescription for an inhaled bronchodilator -- a medication which stimulates the airways in the lung to dilate. This improves the flow of air in asthma, bronchitis, and emphysema. These medicines have some similarity to adrenaline, and can cause similar side effects: shakiness, racing heart, and a sense of nervousness. These side effects decrease with time. Contact your doctor if these side effects are severe. Do not over-use the medicine. Too-frequent use of the inhaler may make it ineffective. Call your doctor if the inhaler is not controlling your symptoms at the prescribed doses. USE OF ACETAMINOPHEN (Tylenol): Acetaminophen may be taken for pain relief or fever control. It's much safer than aspirin, offering a wider range of "safe" dosages. It is safe during . Some brand names are Tylenol, Panadol, Datril, Anacin 3, Tempra, and Liquiprin. Acetaminophen can be repeated every four hours. The following are maximum recommended dosages: >89 pounds or adults 650 mg to 900 mg Acetaminophen can be repeated every four hours. Maximum dose not to exceed 4000 mg a day. SMOKING: If you smoke, you should stop smoking. The tar and chemicals in cigarette smoke are harmful. Smoking has been shown to cause: emphysema chronic bronchitis lung cancer mouth and throat cancer stomach and pancreas cancer premature aging defects In addition, smoking increases ear and lung infections in children of smokers. FOLLOW-UP CARE: If you have been referred to a physician for follow-up care, call the physician s office for an appointment as you were instructed or within the next two days. If you experience worsening or a significant change in your symptoms, notify the physician immediately or return to the Emergency Department at any time for re-evaluation. Prescriptions: Albuterol Sulfate [Proair HFA Inhalation Aerosol 8.5 gm MDI] 2 puff IH Q4H PRN # 1 mdi PRN Reason: Nystatin/Dexameth/Diphen [Magic Mouthwash (Omh Formula) Susp] 5 ml PO QID #120 ml Forms: Elevated Blood Pressure, Smoking Cessation Education
[2017-07-29] MEDS ORDERED: IPRATROPIUM/ALBUTEROL 0.5-2.5 MG/3 ML AMPUL NEB ONE (17:23)
== END 2017-07-29 17:40 | disposition home or self-care (01) ==
LOC: ER 15:56
DX: J06.9 Acute upper respiratory infection, unspecified (principal); R05 Cough; R50.9 Fever, unspecified; M79.1 Myalgia; J02.9 Acute pharyngitis, unspecified; Z87.891 Personal history of nicotine dependence
CPT/HCPCS: 99283; 87070; 87880; J7620

== ENCOUNTER 2018-02-11 23:10 | Inpatient (IN) | payer MEDICAID ==
[2018-02-12] MEDS ORDERED: IPRATROPIUM/ALBUTEROL 0.5-2.5 MG/3 ML AMPUL NEB ONE ×3 (01:41→01:54)
[2018-02-12] MEDS ORDERED: PREDNISONE 20 MG TABLET PO ONE (01:41)
[2018-02-12] MEDS ORDERED: ALBUTEROL SULFATE 0.083% NEB 2.5 MG/3 ML AMPUL NEB ONE ×3 (01:43→01:54)
[2018-02-12] MEDS: ALBUTEROL SULFATE 0.083% NEB 2.5 MG/3 ML AMPUL NEB SCH ×2 (01:53→02:34)
[2018-02-12] MEDS ORDERED: METHYLPREDNISOLONE INJ 125 MG/2 ML SDV IV ONE (01:54)
--- NOTE | 2018-02-12 01:56 | ER Document Report ---
ED General - General Chief Complaint: Shortness Of Breath Stated Complaint: DIFFICULTY BREATHING Time Seen by Provider: 02/12/18 01:43 Cannot obtain history due to: Unstable vital signs Notes: Patient is a 32 year old female with a past medical history of morbid obesity and asthma who presents with 2 days of progressively worsening shortness of breath that became abruptly much worse over the last several hours. Patient describes the shortness of breath as a constant, severe shortness of breath worsened by any form of exertion. She has tried her inhaler with no significant improvement she denies any history of such a severe exacerbation in the past. She has not seen her general doctor regarding today's concerns. She denies any history of requiring hospitalization or intubation for asthma in the past. She denies any cough, sputum production, fever or constitutional symptoms. TRAVEL OUTSIDE OF THE [place] IN LAST 30 DAYS: No - Related Data Allergies/Adverse Reactions: No Known Allergies Allergy (Verified 07/29/17 15:59) Past Medical History - General Information source: Patient - Social History Smoking Status: Never Smoker Frequency of alcohol use: None Drug Abuse: None Lives with: Spouse/Significant other Family History: DM. denies: Arthritis, CAD, COPD, CVA, Hyperlipidemia, Hypertension, Malignancy, Thyroid Disfunction - Past Medical History Cardiac Medical History: Reports: Hx Hypertension Pulmonary Medical History: Reports: Hx Asthma, Hx Bronchitis - "I have REactive airway, use inhaler once in awhile" Renal/ Medical History: Denies: Hx Peritoneal Dialysis Psychiatric Medical History: Reports: Hx Attention Deficit Hyperactivity Disorder Past Surgical History: Reports: Hx Section - 2, Hx Cholecystectomy, Hx Genitourinary Surgery - Immunizations Immunizations up to date: Yes Hx Diphtheria, Pertussis, Tetanus Vaccination: Yes Hx Pneumococcal Vaccination: 08/06/00 Review of Systems - Review of Systems Notes: Constitutional: Negative for fever. HENT: Negative for sore throat. Eyes: Negative for visual changes. Cardiovascular: Negative for chest pain. Respiratory: Positive for shortness of breath. Gastrointestinal: Negative for abdominal pain, vomiting or diarrhea. Genitourinary: Negative for dysuria. Musculoskeletal: Negative for back pain. Skin: Negative for rash. Neurological: Negative for headaches, weakness or numbness. 10 point ROS negative except as marked above and in HPI. Physical Exam - Vital signs Vitals: Temp Pulse Resp BP Pulse Ox 99.2 F 122 H 24 H 147/95 H 94 02/11/18 23:43 02/11/18 23:43 02/11/18 23:43 02/11/18 23:43 02/11/18 23:43 Interpretation: Tachycardic, Hypoxic, Tachypneic Notes: PHYSICAL EXAMINATION: GENERAL: In moderate to severe respiratory distress HEAD: Atraumatic, normocephalic. EYES: Pupils equal round and reactive to light, extraocular movements intact, sclera anicteric, conjunctiva are normal. ENT: nares patent, oropharynx clear without exudates. Moderately dry mucous membranes. NECK: Normal range of motion, supple without lymphadenopathy LUNGS: Diminished air movement in all lung maldonado with coarse expiratory wheezing throughout. Moderate to severe respiratory distress with associated retractions. HEART: Regular tachycardia without murmurs ABDOMEN: Soft, morbidly obese abdomen, nontender, normoactive bowel sounds. No guarding, no rebound. No masses appreciated. EXTREMITIES: Normal range of motion, no pitting or edema. No cyanosis. NEUROLOGICAL: No focal neurological deficits. Moves all extremities spontaneously and on command. PSYCH: Moderately anxious SKIN: Warm, Dry, normal turgor, no rashes or lesions noted. Course - Re-evaluation Re-evalutation: 02/12/18 01:55 Patient presents in moderate respiratory distress tachypneic, retracting, speaking in 3-4 word sentences. She is breathing a proximal me 30 times per minute at the time of my initial assessment saturating 94% on room air. She was immediately started on a continuous nebulizer, IV access will be establishing with she will receive magnesium and Solu-Medrol. A stat portable chest x-ray will also be obtained. The patient on lung examination does have coarse expiratory wheezing in all lung maldonado and her clinical picture is most consistent with a severe asthma exacerbation. Will reassess at regular intervals 02/12/18 02:20 Patient's work of breathing continues to be elevated although somewhat improved from initial assessment. She has improved aeration throughout on ongoing continuous nebulizer but continues to have a coarse wheeze throughout as well as ongoing tachypnea. 02/12/18 02:49 Patient continues to have tachypnea, breathing 28 times per minute although no longer retracting and states she is feeling improved. However her work of breathing continues to be persistently elevated. The patient has received 2 g of magnesium, Solu-Medrol. Chest x-ray is clear. Labs unremarkable. Given patient's ongoing elevated work of breathing, need for ongoing continuous nebulizers, I believe she should be hospitalized. Patient is in agreement and I will contact Dr. Rand to assess the patient 02/12/18 03:36 Patient continues to have overall clinical improvement on continuous nebulizers. Dr. Rand has accepted the patient for admission. - Vital Signs Vital signs: Temp Pulse Resp BP Pulse Ox 99.2 F 122 H 24 H 147/95 H 94 02/11/18 23:43 02/11/18 23:43 02/11/18 23:43 02/11/18 23:43 02/11/18 23:43 - Laboratory Result Diagrams: 02/12/18 01:50 02/12/18 01:50 Laboratory results interpreted by me: 02/12/18 02/12/18 02/12/18 01:50 01:50 01:50 WBC 14.2 H MCV 79 L MCH 26.4 L RDW 17.4 H Absolute Neutrophils 9.7 H Glucose 187 H Hemoglobin A1c % NT-Pro-B Natriuret Pep 369 H 02/12/18 01:50 WBC MCV MCH RDW Absolute Neutrophils Glucose Hemoglobin A1c % 7.4 H NT-Pro-B Natriuret Pep - Diagnostic Test Radiology reviewed: Image reviewed, Reports reviewed Radiology results interpreted by me: 02/12/18 03:36 Chest x-ray: No acute infiltrate or pneumothorax - EKG Interpretation by Me Additional EKG results interpreted by me: 02/12/18 03:37 Sinus tachycardia. Rate 118. No ST elevations or depressions. QTC is 483. Critical Care Note - Critical Care Note Total time excluding time spent on procedures (mins): 36 Comments: Critical care time spent obtaining history from patient or surrogate, discussions with consultants, development of treatment plan with patient or surrogate, evaluation of patient's response to treatment, examination of patient , ordering and performing treatments and interventions, ordering and review of laboratory studies, re-evaluation of patient's condition, ordering and review of radiographic studies and review of old charts Discharge - Discharge Clinical Impression: Respiratory distress Asthma exacerbation Qualifiers: Asthma severity: severe Asthma persistence: persistent Qualified Code(s): J45.51 - Severe persistent asthma with (acute) exacerbation Condition: Fair Disposition: ADMITTED INPATIENT Admitting Provider: Hospitalist Unit Admitted: [facility]
[2018-02-12 02:06] LABS: ABSOLUTE BASOPHILS # (AUTO) 0.1 10^3/uL (0.0-0.2); ABSOLUTE EOSINOPHILS # (AUTO) 0.6 10^3/uL (0.0-0.6); ABSOLUTE LYMPHOCYTES (AUTO) 3.3 10^3/uL (0.5-4.7); ABSOLUTE MONOCYTES (AUTO) 0.5 10^3/uL (0.1-1.4); ABSOLUTE NEUT (AUTO) 9.7 10^3/uL (1.7-8.2); BASOPHILS % (AUTO) 0.7 % (0-2); EOSINOPHILS % (AUTO) 4.4 % (0-6); HEMATOCRIT 37.3 % (36.0-47.0); HEMOGLOBIN 12.4 g/dL (12.0-15.5); LYMPHOCYTES % (AUTO) 23.2 % (13-45); MEAN CORPUSCULAR HEMOGLOBIN 26.4 pg (27.0-33.4); MEAN CORPUSCULAR HGB CONC 33.3 g/dL (32.0-36.0); MEAN CORPUSCULAR VOLUME 79 fl (80-97); MONOCYTES % (AUTO) 3.2 % (3-13); PLATELET COUNT 386 10^3/uL (150-450); RED CELL DISTRIBUTION WIDTH 17.4 % (11.5-14.0); SEGMENTED NEUTROPHILS % (AUTO) 68.5 % (42-78); TOTAL CELLS COUNTED % (AUTO) 100 %; WHITE BLOOD COUNT 14.2 10^3/uL (4.0-10.5)
[2018-02-12] MEDS: MAGNESIUM SULFATE/D5W 1 GM/100 ML RTUPB IV SCH ×2 (02:06→02:48)
[2018-02-12 02:15] LABS: ANION GAP 15 (5-19); BLOOD UREA NITROGEN 13 mg/dL (7-20); CALCIUM 9.7 mg/dL (8.4-10.2); CARBON DIOXIDE 28 mmol/L (22-30); CHLORIDE 99 mmol/L (98-107); GLUCOSE 187 mg/dL (75-110); POTASSIUM 3.8 mmol/L (3.6-5.0); SODIUM 141.7 mmol/L (137-145)
--- NOTE | 2018-02-12 02:23 | RADIOLOGY REPORT (SQ) ---
EXAM DESCRIPTION: XR CHEST 1 VIEW COMPLETED DATE/TME: 02/12/2018 01:41 CLINICAL HISTORY: difficulty breathing COMPARISON: 12/26/2016 FINDINGS: Single frontal view of the chest. Leads overlie the chest. The cardiomediastinal silhouette has normal size and contour. No consolidation, pneumothorax, or pleural effusion. No displaced rib fractures identified. Upper abdominal soft tissues are unremarkable. IMPRESSION: 1. No acute pulmonary process identified.
[2018-02-12 02:27] LABS: NT PRO BNP 369 pg/mL (<125)
[2018-02-12 02:31] LABS: TROPONIN I < 0.012 ng/mL
[2018-02-12] MEDS ORDERED: HYDRALAZINE HCL INJ/PF 20 MG/1 ML SDV IV PRN (02:57)
[2018-02-12] MEDS ORDERED: IPRATROPIUM/ALBUTEROL 0.5-2.5 MG/3 ML AMPUL NEB PRN (02:59)
[2018-02-12] MEDS ORDERED: CHLORPHENIRAMINE MALEATE 4 MG TABLET PO SCH (03:00)
[2018-02-12] MEDS ORDERED: DOXYCYCLINE HYCLATE INJ 100 MG VIAL IV PRN (03:06)
[2018-02-12] MEDS ORDERED: FLUTICASONE NASAL SPRAY 50 MCG/SPRY 120 SPRAY/16 GM NASL ONE (03:15)
[2018-02-12] MEDS ORDERED: LANSOPRAZOLE 30 MG TAB.RAP.DR PO ONE (03:15)
[2018-02-12] MEDS ORDERED: DOXYCYCLINE HYCLATE 100 MG in DEXTROSE 5%-WATER 250 ML IV ONE (03:15)
--- NOTE | 2018-02-12 04:43 | PDOC H&P ---
History of Present Illness Admission Date/PCP: 02/12/18 02:59 Patient complains of: Shortness of breath and cough History of Present Illness: SUZY GRANDE is a 32 year old female with a past medical history of super morbid obesity, hypertension and asthma who presents with 4 days of fatigue and exertional wheeze with shortness of breath. She recognizes these symptoms as previous episodes of asthma exacerbation. With paroxysms of cough while trying to speak. 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 In the emergency room she requires continuous nebulizer, Solu-Medrol and magnesium. She denies chest pain, palpitations, nausea vomiting or abrupt onset of leg swelling. She is referred to the hospitalist for admission Past Medical History Cardiac Medical History: Reports: Hypertension Pulmonary Medical History: Reports: Asthma, Bronchitis - "I have REactive airway , use inhaler once in awhile" Endocrine Medical History: Reports: Obesity Psychiatric Medical History: Reports: Attention Deficit Hyperactivity Disorder Past Surgical History Past Surgical History: Reports: Section - 2, Cholecystectomy Social History Information Source: Patient Lives with: Spouse/Significant other Smoking Status: Unknown if Ever Smoked Frequency of Alcohol Use: None Drugs: None - Advance Directive Resuscitation Status: Full Code Family History Family History: DM. denies: Arthritis, CAD, COPD, CVA, Hyperlipidemia, Hypertension, Malignancy, Thyroid Disfunction Parental Family History Reviewed: Yes Children Family History Reviewed: Yes Sibling(s) Family History Reviewed.: Yes Medication/Allergy Allergies/Adverse Reactions: No Known Allergies Allergy (Verified 02/12/18 04:21) Review of Systems Constitutional: ABSENT: chills, fever(s), headache(s), weight gain, weight loss Eyes: ABSENT: visual disturbances Ears: ABSENT: hearing changes Cardiovascular: ABSENT: chest pain, dyspnea on exertion, edema, orthropnea, palpitations Respiratory: ABSENT: cough, hemoptysis Gastrointestinal: ABSENT: abdominal pain, constipation, diarrhea, hematemesis, hematochezia, nausea, vomiting Genitourinary: ABSENT: dysuria, hematuria Musculoskeletal: ABSENT: joint swelling Integumentary: ABSENT: rash, wounds Neurological: ABSENT: abnormal gait, abnormal speech, confusion, dizziness, focal weakness, syncope Psychiatric: ABSENT: anxiety, depression, homidical ideation, suicidal ideation Endocrine: ABSENT: cold intolerance, heat intolerance, polydipsia, polyuria Hematologic/Lymphatic: ABSENT: easy bleeding, easy bruising Physical Exam Vital Signs: Temp Pulse Resp BP Pulse Ox 99.2 F 122 H 33 H 131/61 H 93 02/11/18 23:43 02/11/18 23:43 02/12/18 04:01 02/12/18 04:01 02/12/18 04:01 General appearance: PRESENT: cooperative, mild distress, morbidly obese Head exam: PRESENT: atraumatic, normocephalic Eye exam: PRESENT: conjunctiva pink, EOMI, PERRLA. ABSENT: scleral icterus Ear exam: PRESENT: normal external ear exam Mouth exam: PRESENT: moist, tongue midline Neck exam: ABSENT: carotid bruit, JVD, lymphadenopathy, thyromegaly Respiratory exam: PRESENT: accessory muscle use, clear to auscultation rocky, retraction, symmetrical, tachypnea, wheezes. ABSENT: rales, rhonchi Cardiovascular exam: PRESENT: RRR. ABSENT: diastolic murmur, rubs, systolic murmur Pulses: PRESENT: normal dorsalis pedis pul Vascular exam: PRESENT: normal capillary refill GI/Abdominal exam: PRESENT: normal bowel sounds, soft. ABSENT: distended, guarding, mass, organolmegaly, rebound, tenderness Rectal exam: PRESENT: deferred Extremities exam: PRESENT: full ROM. ABSENT: calf tenderness, clubbing, pedal edema Neurological exam: PRESENT: alert, awake, oriented to person, oriented to place , oriented to time, oriented to situation, CN II-XII grossly intact. ABSENT: motor sensory deficit Psychiatric exam: PRESENT: appropriate affect, normal mood. ABSENT: homicidal ideation, suicidal ideation Skin exam: PRESENT: dry, intact, warm. ABSENT: cyanosis, rash Results Impressions: Chest X-Ray 02/12/18 01:41 IMPRESSION: 1. No acute pulmonary process identified. Assessment & Plan - Diagnosis (1) Asthma exacerbation Qualifiers: Asthma severity: severe Asthma persistence: persistent Qualified Code(s) : J45.51 - Severe persistent asthma with (acute) exacerbation Is this a current diagnosis for this admission?: Yes Plan: Unknown trigger, suspect subclinical GERD, Prevacid, prednisone, albuterol, Atrovent and chlorpheniramine follow-up peak flow (2) Hypertension Is this a current diagnosis for this admission?: Yes Plan: Hydralazine, consider addition of MARVIN inhibitor (3) Morbid obesity with BMI of 70 and over, adult Is this a current diagnosis for this admission?: Yes Plan: Morbid obesity will evaluate for metabolic cause with evaluation of thyroid function and dietitian consultation (4) Respiratory distress Is this a current diagnosis for this admission?: Yes Plan: Secondary to #1, supplemental oxygen and BiPAP, avoid narcotics or sedatives secondary to high risk of respiratory depression. - Time Time Spent: 50 to 70 Minutes - Inpatient Certification Medical Necessity: Need Close Monitoring Due to Risk of Patient Decompensation
[2018-02-12 05:09] LABS: ABSOLUTE BASOPHILS # (AUTO) 0.1 10^3/uL (0.0-0.2); ABSOLUTE EOSINOPHILS # (AUTO) 0.3 10^3/uL (0.0-0.6); ABSOLUTE LYMPHOCYTES (AUTO) 2.7 10^3/uL (0.5-4.7); ABSOLUTE MONOCYTES (AUTO) 0.3 10^3/uL (0.1-1.4); ABSOLUTE NEUT (AUTO) 10.9 10^3/uL (1.7-8.2); BASOPHILS % (AUTO) 0.6 % (0-2); EOSINOPHILS % (AUTO) 2.1 % (0-6); HEMATOCRIT 38.3 % (36.0-47.0); HEMOGLOBIN 12.7 g/dL (12.0-15.5); MEAN CORPUSCULAR HGB CONC 33.1 g/dL (32.0-36.0); MEAN CORPUSCULAR VOLUME 79 fl (80-97); PLATELET COUNT 329 10^3/uL (150-450); RED BLOOD COUNT 4.87 10^6/uL (3.72-5.28); RED CELL DISTRIBUTION WIDTH 17.2 % (11.5-14.0); SEGMENTED NEUTROPHILS % (AUTO) 76.3 % (42-78); TOTAL CELLS COUNTED % (AUTO) 100 %; WHITE BLOOD COUNT 14.3 10^3/uL (4.0-10.5)
[2018-02-12] MEDS: HEPARIN SOD (PORCINE) 5,000 UNIT/ML 1 ML SYRINGE SUBCUT SCH ×3 (07:47→21:46)
[2018-02-12] MEDS ORDERED: IPRATROPIUM/ALBUTEROL 0.5-2.5 MG/3 ML AMPUL NEB SCH (08:00)
[2018-02-12] MEDS: LANSOPRAZOLE 30 MG TAB.RAP.DR PO SCH ×2 (09:40→17:50)
[2018-02-12] MEDS: FLUTICASONE NASAL SPRAY 50 MCG/SPRY 120 SPRAY/16 GM NASL SCH ×2 (09:41→21:47)
--- NOTE | 2018-02-12 09:58 | EKG REPORT ---
SEVERITY:- ABNORMAL ECG - SINUS TACHYCARDIA PROBABLE LEFT VENTRICULAR HYPERTROPHY BORDERLINE PROLONGED QT INTERVAL : Confirmed by: Analisa Olivera MD 12-Feb-2018 09:57:42
[2018-02-12] MEDS ORDERED: PREDNISONE 20 MG TABLET PO SCH (10:00)
[2018-02-12] MEDS ORDERED: CHLORPHENIRAMINE MALEATE 4 MG TABLET PO ONE (10:00)
[2018-02-12] MEDS ORDERED: GLUCAGON,HUMAN RECOMB 1 MG INJ IM PRN (10:33)
[2018-02-12] MEDS ORDERED: DEXTROSE 50%-WATER 25 GM/50 ML DISP.SYRIN IV PRN ×2 (10:33)
[2018-02-12] MEDS ORDERED: DEXTROSE 40% GEL 15 GM TUBE PO PRN ×2 (10:33)
[2018-02-12] MEDS ORDERED: FUROSEMIDE INJ/PF 20 MG/2 ML SDV IV ONE (10:59)
[2018-02-12] MEDS: ACETAMINOPHEN 325 MG TABLET PO PRN (11:22)
[2018-02-12] MEDS: LEVALBUTEROL HCL NEB 1.25 MG/3 ML AMPUL NEB PRN (12:01)
[2018-02-12] MEDS: INSULIN LISPRO 100 UNIT/ML 3 ML VIAL SUBCUT PRN ×3 (12:29→22:39)
[2018-02-12] MEDS: METHYLPREDNISOLONE INJ 40 MG/1 ML SDV IV SCH ×2 (13:20→21:46)
[2018-02-12] MEDS: LEVALBUTEROL HCL NEB 1.25 MG/3 ML AMPUL NEB SCH (16:02)
[2018-02-12] MEDS: IPRATROPIUM BROMIDE 0.02% NEB 0.5 MG/2.5 ML AMPUL NEB SCH (16:03)
[2018-02-12] MEDS: METFORMIN HCL 500 MG TABLET PO SCH (16:11)
--- NOTE | 2018-02-12 17:36 | PDOC PROGRESS REPORT ---
Subjective Progress Note for:: 02/12/18 Subjective:: The patient was seen on morning rounds. She was found sitting semi-fillers in bed while on. She was noted to be tachypneic with accessory muscle use. The patient reports continued dyspnea, wheezing, and anxiety despite BiPAP. She expresses concerns with regard to possible heart failure secondary to severity of symptoms and bilateral lower leg edema. She denies previous cardiac history. She denies recent URI, fever, chills, chest pain, palpitations, abdominal pain, nausea vomiting diarrhea. She does endorse a prolonged course of worsening dyspnea on exertion, wheezing, and nonproductive cough prior to her admission through the emergency department last night. Discussed with respiratory therapy; will increase frequency of nebulizer treatments and monitor closely. Nursing updated on plan of care; no other concerns at this time. Reason For Visit: ASTHMA EXACERBATION ACUTE BRONCHITIS SUPER Physical Exam Vital Signs: Temp Pulse Resp BP Pulse Ox 98.1 F 111 H 22 H 128/67 H 94 02/12/18 08:15 02/12/18 08:15 02/12/18 10:31 02/12/18 08:15 02/12/18 10:31 Pulse Oximeter Continuous Start: 02/12/18 02: 59 Freq: RTQ4 Status: Active Document 02/12/18 10:31 [facility] (Rec: 02/12/18 10:34 [facility] [email or web address]) Pulse Oximetry Assessment Oxygen Saturation (92-100) 94 Oxygen Delivery Method Bi-pap Fraction of Inspired Oxygen (FIO2) 35 Equipment Usage Initial Set Up Continuous Pulse Oximeter 24 Hour Charge Charge Now Continuous SpO2 Machine # [id number] General appearance: PRESENT: mild distress, morbidly obese, well-developed, well -nourished Head exam: PRESENT: atraumatic, normocephalic Eye exam: PRESENT: conjunctiva pink, EOMI, PERRLA. ABSENT: scleral icterus Ear exam: PRESENT: normal external ear exam Mouth exam: PRESENT: moist, tongue midline Neck exam: ABSENT: carotid bruit, JVD, lymphadenopathy, thyromegaly Respiratory exam: PRESENT: accessory muscle use, decreased breath sounds - tight ; diminished throughout, tachypnea, other - BiPAP. ABSENT: rales, rhonchi, wheezes Cardiovascular exam: PRESENT: RRR, tachycardia. ABSENT: diastolic murmur, rubs , systolic murmur Pulses: PRESENT: normal dorsalis pedis pul Vascular exam: PRESENT: normal capillary refill GI/Abdominal exam: PRESENT: normal bowel sounds, soft. ABSENT: distended, guarding, mass, organolmegaly, rebound, tenderness Rectal exam: PRESENT: deferred Extremities exam: PRESENT: full ROM, pedal edema - nonpitting bilaterally. ABSENT: calf tenderness, clubbing Neurological exam: PRESENT: alert, awake, oriented to person, oriented to place , oriented to time, oriented to situation, CN II-XII grossly intact. ABSENT: motor sensory deficit Psychiatric exam: PRESENT: anxious, appropriate affect, normal mood. ABSENT: homicidal ideation, suicidal ideation Skin exam: PRESENT: dry, intact, warm. ABSENT: cyanosis, rash Results Laboratory Results: 02/12/18 04:50 02/12/18 04:50 WBC 14.3 H RBC 4.87 Hgb 12.7 Hct 38.3 MCV 79 L MCH 26.0 L MCHC 33.1 RDW 17.2 H Plt Count 329 Seg Neutrophils % 76.3 Lymphocytes % 19.0 Monocytes % 2.0 L Eosinophils % 2.1 Basophils % 0.6 Absolute Neutrophils 10.9 H Absolute Lymphocytes 2.7 Absolute Monocytes 0.3 Absolute Eosinophils 0.3 Absolute Basophils 0.1 Impressions: Chest X-Ray 02/12/18 01:41 IMPRESSION: 1. No acute pulmonary process identified. Assessment & Plan - Diagnosis (1) Asthma exacerbation Qualifiers: Asthma severity: severe Asthma persistence: persistent Qualified Code(s) : J45.51 - Severe persistent asthma with (acute) exacerbation Is this a current diagnosis for this admission?: Yes Plan: Patient was here, persistent, asthma; symptoms beginning several weeks ago and progressively worsening. Has had dyspnea with exertion, wheezing, nighttime waking and coughing for 3-4 days. The patient received IV magnesium overnight while in the emergency department, continuous nebulizer treatments, IV Solu- Medrol. Chest x-ray benign. ProBNP mildly elevated at 340. The patient was admitted to [facility] on continuous cardiac telemetry. She is placed on supplemental oxygen as needed to maintain oxygen saturations greater than 90%. She was initially placed on p.o. prednisone; this is been escalated today to IV Solu-Medrol 40 mg every 8 hours. Her nebulizers were adjusted to Atrovent and Xopenex given concurrently every 8 hours on schedule with Xopenex available as needed every 2 hours for dyspnea or wheezing secondary to persistent tachycardia > 115 She is placed on BiPAP with improvement in oxygenation and tachypnea. (2) Diabetes Qualifiers: Diabetes mellitus type: type 2 Diabetes mellitus complication status: without complication Is this a current diagnosis for this admission?: Yes Plan: The patient reports that she previously has been told that she was prediabetic but has never been on medications. We did discuss that her hemoglobin A1c today is 7.4%. She is placed on a consistent carb and cardiac diet. Accu-Cheks before meals and at bedtime with Humalog for sliding scale coverage while inpatient and on glucocorticoids. Metformin 500 mg twice daily. We will ask the elementary educator and registered dietitian to meet with the patient. (3) Hypertension Is this a current diagnosis for this admission?: Yes Plan: IV hydralazine as needed for blood pressure control. We will continue to monitor blood pressures and consider addition of MARVIN inhibitor; blood pressures this afternoon are improved. She is placed on a cardiac diet. (4) Morbid obesity with BMI of 70 and over, adult Is this a current diagnosis for this admission?: Yes Plan: The patient's super morbid obesity is certainly worsening her respiratory function; perhaps causing night time reflux/GERD and/or SHERIDAN. Patient now with Type 2 DM. TSH is normal. A1c 7.4% We will ask the registered dietitian and elementary educator to meet with patient. (5) Respiratory distress Is this a current diagnosis for this admission?: Yes Plan: Secondary to asthma exacerbation; plan as above. - Time Time Spent with patient: 25-34 minutes Medications reviewed and adjusted accordingly: Yes Anticipated discharge: Home
[2018-02-12] MEDS: CHLORPHENIRAMINE MALEATE 4 MG TABLET PO SCH ×2 (17:50→23:17)
[2018-02-12] MEDS: DOXYCYCLINE HYCLATE 100 MG in DEXTROSE 5%-WATER 250 ML IV SCH (17:51)
[2018-02-13] MEDS: LEVALBUTEROL HCL NEB 1.25 MG/3 ML AMPUL NEB SCH ×3 (00:14→15:53)
[2018-02-13] MEDS: IPRATROPIUM BROMIDE 0.02% NEB 0.5 MG/2.5 ML AMPUL NEB SCH ×3 (00:14→15:53)
[2018-02-13] MEDS: METHYLPREDNISOLONE INJ 40 MG/1 ML SDV IV SCH ×3 (05:33→21:59)
[2018-02-13] MEDS: CHLORPHENIRAMINE MALEATE 4 MG TABLET PO SCH (05:33)
[2018-02-13] MEDS: HEPARIN SOD (PORCINE) 5,000 UNIT/ML 1 ML SYRINGE SUBCUT SCH ×3 (05:33→22:00)
[2018-02-13] MEDS: DOXYCYCLINE HYCLATE 100 MG in DEXTROSE 5%-WATER 250 ML IV SCH ×2 (05:35→17:48)
[2018-02-13 05:49] LABS: ABSOLUTE BASOPHILS # (AUTO) 0.1 10^3/uL (0.0-0.2); ABSOLUTE LYMPHOCYTES (AUTO) 2.1 10^3/uL (0.5-4.7); ABSOLUTE MONOCYTES (AUTO) 0.5 10^3/uL (0.1-1.4); ABSOLUTE NEUT (AUTO) 16.7 10^3/uL (1.7-8.2); BASOPHILS % (AUTO) 0.3 % (0-2); HEMATOCRIT 36.9 % (36.0-47.0); HEMOGLOBIN 12.2 g/dL (12.0-15.5); LYMPHOCYTES % (AUTO) 10.7 % (13-45); MEAN CORPUSCULAR HEMOGLOBIN 26.5 pg (27.0-33.4); MEAN CORPUSCULAR HGB CONC 33.1 g/dL (32.0-36.0); MEAN CORPUSCULAR VOLUME 80 fl (80-97); MONOCYTES % (AUTO) 2.6 % (3-13); PLATELET COUNT 390 10^3/uL (150-450); RED BLOOD COUNT 4.63 10^6/uL (3.72-5.28); RED CELL DISTRIBUTION WIDTH 17.5 % (11.5-14.0); SEGMENTED NEUTROPHILS % (AUTO) 86.4 % (42-78); TOTAL CELLS COUNTED % (AUTO) 100 %; WHITE BLOOD COUNT 19.4 10^3/uL (4.0-10.5)
[2018-02-13] MEDS: LEVALBUTEROL HCL NEB 1.25 MG/3 ML AMPUL NEB PRN (06:29)
[2018-02-13 08:31] LABS: ANION GAP 15 (5-19); BLOOD UREA NITROGEN 26 mg/dL (7-20); CALCIUM 9.6 mg/dL (8.4-10.2); CARBON DIOXIDE 27 mmol/L (22-30); CHLORIDE 102 mmol/L (98-107); GLUCOSE 236 mg/dL (75-110); POTASSIUM 5.2 mmol/L (3.6-5.0); SODIUM 143.5 mmol/L (137-145)
[2018-02-13] MEDS: INSULIN LISPRO 100 UNIT/ML 3 ML VIAL SUBCUT PRN ×3 (09:07→22:41)
[2018-02-13] MEDS: LANSOPRAZOLE 30 MG TAB.RAP.DR PO SCH ×2 (09:09→17:48)
[2018-02-13] MEDS: METFORMIN HCL 500 MG TABLET PO SCH ×2 (09:09→17:47)
[2018-02-13] MEDS: FLUTICASONE NASAL SPRAY 50 MCG/SPRY 120 SPRAY/16 GM NASL SCH ×2 (09:10→22:00)
[2018-02-13] MEDS ORDERED: (PENDING PHARMACY ID) (Triamterene/Hydrochlorothiazid [Triamterene-Hctz 37.5-25 Mg Cp] 1 E PO SCH (10:00)
[2018-02-13] MEDS ORDERED: TRIAMTERENE/HYDROCHLOROTHIAZIDE 37.5-25 MG TABLET PO SCH (10:00)
[2018-02-13] MEDS ORDERED: LEVALBUTEROL HCL NEB 1.25 MG/3 ML AMPUL NEB PRN (11:46)
--- NOTE | 2018-02-13 16:59 | PDOC PROGRESS REPORT ---
Subjective Progress Note for:: 02/13/18 Subjective:: The patient was seen on morning rounds. She was found sitting up to the edge of the bed on supplemental oxygen by nasal cannula at 3 L/min. She is fully conversational today; respirations are regular and even. She reports diaphoresis overnight and beginning of a slightly productive cough. Otherwise, she denies fever, chills, chest pain, palpitations, dyspnea, orthopnea, abdominal pain, nausea vomiting and diarrhea. She reports that she feels significantly better and is actually asking to be discharged home. Reason For Visit: ASTHMA EXACERBATION ACUTE BRONCHITIS SUPER Physical Exam Vital Signs: Temp Pulse Resp BP Pulse Ox 97.8 F 95 20 144/92 H 98 02/13/18 11:02 02/13/18 14:00 02/13/18 11:02 02/13/18 11:02 02/13/18 12:00 Pulse Oximeter Continuous Start: 02/12/18 02: 59 Freq: RTQ4 Status: Active Document 02/13/18 12:00 [facility] (Rec: 02/13/18 13:51 [facility] [email or web address]) Pulse Oximetry Assessment Oxygen Saturation (92-100) 98 Oxygen Flow Rate (L/min) 3 Oxygen Delivery Method Nasal Cannula Equipment Usage Equipment in Use Continuous SpO2 Machine # 10 Intake & Output 02/12/18 02/13/18 02/14/18 06:59 06:59 06:59 Intake Total 2042 875 Balance 2042 875 Weight 152.2 kg General appearance: PRESENT: no acute distress, morbidly obese, well-developed Head exam: PRESENT: atraumatic, normocephalic Eye exam: PRESENT: conjunctiva pink, EOMI, PERRLA. ABSENT: scleral icterus Ear exam: PRESENT: normal external ear exam Mouth exam: PRESENT: moist, tongue midline Neck exam: ABSENT: carotid bruit, JVD, lymphadenopathy, thyromegaly Respiratory exam: PRESENT: decreased breath sounds - Bibasilar, symmetrical, unlabored, other - Supplemental oxygen by nasal cannula. ABSENT: rales, rhonchi , wheezes Cardiovascular exam: PRESENT: RRR, +S1, +S2. ABSENT: diastolic murmur, rubs, systolic murmur Pulses: PRESENT: normal dorsalis pedis pul Vascular exam: PRESENT: normal capillary refill GI/Abdominal exam: PRESENT: normal bowel sounds, soft, other - Super morbid obesity;exam limited secondary to body habitus. ABSENT: distended, guarding, tenderness Rectal exam: PRESENT: deferred Extremities exam: PRESENT: full ROM. ABSENT: calf tenderness, clubbing, pedal edema Neurological exam: PRESENT: alert, awake, oriented to person, oriented to place , oriented to time, oriented to situation, CN II-XII grossly intact. ABSENT: motor sensory deficit Psychiatric exam: PRESENT: appropriate affect, normal mood. ABSENT: homicidal ideation, suicidal ideation Skin exam: PRESENT: dry, intact, warm. ABSENT: cyanosis, rash Results Laboratory Results: 02/13/18 05:30 02/13/18 05:30 02/13/18 02/13/18 05:30 05:30 WBC 19.4 H RBC 4.63 Hgb 12.2 Hct 36.9 MCV 80 MCH 26.5 L MCHC 33.1 RDW 17.5 H Plt Count 390 Seg Neutrophils % 86.4 H Lymphocytes % 10.7 L Monocytes % 2.6 L Eosinophils % 0.0 Basophils % 0.3 Absolute Neutrophils 16.7 H Absolute Lymphocytes 2.1 Absolute Monocytes 0.5 Absolute Eosinophils 0.0 Absolute Basophils 0.1 Sodium 143.5 Potassium 5.2 H Chloride 102 Carbon Dioxide 27 Anion Gap 15 BUN 26 H Creatinine 0.62 Est GFR ( Amer) > 60 Est GFR (Non-Af Amer) > 60 Glucose 236 H Calcium 9.6 02/13/18 05:30 NT-Pro-B Natriuret Pep 199 H Impressions: Chest X-Ray 02/12/18 01:41 IMPRESSION: 1. No acute pulmonary process identified. Assessment & Plan - Diagnosis (1) Asthma exacerbation Qualifiers: Asthma severity: severe Asthma persistence: persistent Qualified Code(s) : J45.51 - Severe persistent asthma with (acute) exacerbation Is this a current diagnosis for this admission?: Yes Plan: Improved; patient now with regular and even respirations and fully conversational on supplemental oxygen by nasal cannula. Lung sounds are diminished at the bases, improved airflow otherwise. No adventitious lung sounds today. The patient received IV magnesium overnight while in the emergency department, continuous nebulizer treatments, IV Solu-Medrol. Chest x-ray benign. ProBNP mildly elevated at 340 --> 199 D-dimer normal The patient was admitted to [facility] on continuous cardiac telemetry. She is placed on supplemental oxygen as needed to maintain oxygen saturations greater than 90%. He patient utilized BiPAP nearly continuously yesterday and overnight; but now comfortable and maintaining saturations on nasal cannula. Utilize BiPAP as necessary. We will decrease IV Solu-Medrol slightly to 20 mg every 8 hours. Continue scheduled and as needed nebulizer treatments. Consider need for maintenance asthma therapy. (2) Diabetes Qualifiers: Diabetes mellitus type: type 2 Diabetes mellitus complication status: without complication Is this a current diagnosis for this admission?: Yes Plan: The patient reports that she previously has been told that she was prediabetic but has never been on medications. A1c 7.4%. She is placed on a consistent carb and cardiac diet. Accu-Cheks before meals and at bedtime with Humalog for sliding scale coverage while inpatient and on glucocorticoids. Metformin 500 mg twice daily; to be continued at discharge. We will ask the cnc field service engineer and registered dietitian to meet with the patient. (3) Hypertension Is this a current diagnosis for this admission?: Yes Plan: The patient's home medication is resumed. IV hydralazine as needed for blood pressure control. She is placed on a cardiac diet. (4) Bronchitis Is this a current diagnosis for this admission?: Yes Plan: The patient was empirically placed on IV doxycycline secondary to respiratory distress. She is now developed a productive cough. We will continue antibiotics. Mucinex twice daily (5) GERD (gastroesophageal reflux disease) Is this a current diagnosis for this admission?: Yes Plan: Continue PPI (6) Leukocytosis Qualifiers: Leukocytosis type: unspecified Qualified Code(s): D72.829 - Elevated white blood cell count, unspecified Is this a current diagnosis for this admission?: Yes Plan: Secondary to glucocorticoids. The patient is afebrile. She is currently on IV doxycycline for bronchitis. (7) Morbid obesity with BMI of 70 and over, adult Is this a current diagnosis for this admission?: Yes Plan: The patient's super morbid obesity is certainly worsening her respiratory function; perhaps causing night time reflux/GERD and/or SHERIDAN. Patient now with Type 2 DM. TSH is normal. A1c 7.4% We will ask the registered dietitian and cnc field service engineer to meet with patient. (8) Respiratory distress Is this a current diagnosis for this admission?: Yes Plan: Resolved; secondary to asthma exacerbation. Plan as above. - Time Time Spent with patient: 15-24 minutes Medications reviewed and adjusted accordingly: Yes Anticipated discharge: Home Within: within 24 hours - Plan Summary Plan Summary: Obtain ambulatory oxygen qualification test in the morning. Transition to p.o. prednisone and doxycycline. May be ready for discharge tomorrow.
[2018-02-13] MEDS: TRIAMTERENE/HYDROCHLOROTHIAZIDE 37.5-25 MG TABLET PO SCH (17:47)
[2018-02-14] MEDS: LEVALBUTEROL HCL NEB 1.25 MG/3 ML AMPUL NEB SCH ×3 (00:06→16:28)
[2018-02-14] MEDS: IPRATROPIUM BROMIDE 0.02% NEB 0.5 MG/2.5 ML AMPUL NEB SCH ×3 (00:06→16:28)
[2018-02-14 05:06] LABS: ABSOLUTE BASOPHILS # (AUTO) 0.1 10^3/uL (0.0-0.2); ABSOLUTE LYMPHOCYTES (AUTO) 3.3 10^3/uL (0.5-4.7); ABSOLUTE NEUT (AUTO) 14.8 10^3/uL (1.7-8.2); BASOPHILS % (AUTO) 0.6 % (0-2); EOSINOPHILS % (AUTO) 0.1 % (0-6); HEMATOCRIT 36.1 % (36.0-47.0); HEMOGLOBIN 11.9 g/dL (12.0-15.5); MEAN CORPUSCULAR HEMOGLOBIN 26.6 pg (27.0-33.4); MEAN CORPUSCULAR VOLUME 81 fl (80-97); MONOCYTES % (AUTO) 5.4 % (3-13); PLATELET COUNT 367 10^3/uL (150-450); RED BLOOD COUNT 4.47 10^6/uL (3.72-5.28); RED CELL DISTRIBUTION WIDTH 17.5 % (11.5-14.0); SEGMENTED NEUTROPHILS % (AUTO) 76.9 % (42-78); TOTAL CELLS COUNTED % (AUTO) 100 %; WHITE BLOOD COUNT 19.3 10^3/uL (4.0-10.5)
[2018-02-14] MEDS: TRIAMTERENE/HYDROCHLOROTHIAZIDE 37.5-25 MG TABLET PO SCH ×2 (05:22→17:34)
[2018-02-14] MEDS: HEPARIN SOD (PORCINE) 5,000 UNIT/ML 1 ML SYRINGE SUBCUT SCH ×3 (05:22→21:39)
[2018-02-14] MEDS: METHYLPREDNISOLONE INJ 40 MG/1 ML SDV IV SCH ×3 (05:22→21:40)
[2018-02-14] MEDS: DOXYCYCLINE HYCLATE 100 MG in DEXTROSE 5%-WATER 250 ML IV SCH (05:26)
[2018-02-14 05:27] LABS: ANION GAP 11 (5-19); BLOOD UREA NITROGEN 30 mg/dL (7-20); CALCIUM 9.5 mg/dL (8.4-10.2); CARBON DIOXIDE 29 mmol/L (22-30); CHLORIDE 101 mmol/L (98-107); GLUCOSE 129 mg/dL (75-110); POTASSIUM 5.2 mmol/L (3.6-5.0); SODIUM 141.3 mmol/L (137-145)
[2018-02-14] MEDS: METFORMIN HCL 500 MG TABLET PO SCH ×2 (08:28→16:44)
[2018-02-14] MEDS ORDERED: SODIUM POLYSTYRENE SULFONATE 15 GM/60 ML PO ONE (09:38)
[2018-02-14] MEDS: LANSOPRAZOLE 30 MG TAB.RAP.DR PO SCH ×2 (11:15→17:34)
[2018-02-14] MEDS: FLUTICASONE NASAL SPRAY 50 MCG/SPRY 120 SPRAY/16 GM NASL SCH ×2 (11:16→21:38)
[2018-02-14 12:26] LABS: CREATINE KINASE MB 1.36 ng/mL (<4.55)
[2018-02-14 12:30] LABS: TROPONIN I < 0.012 ng/mL
[2018-02-14] MEDS: INSULIN LISPRO 100 UNIT/ML 3 ML VIAL SUBCUT PRN ×3 (14:09→21:46)
[2018-02-14] MEDS ORDERED: LEVALBUTEROL HCL NEB 1.25 MG/3 ML AMPUL NEB PRN (16:40)
[2018-02-14] MEDS: DOXYCYCLINE HYCLATE 100 MG TABLET PO SCH (17:34)
--- NOTE | 2018-02-14 19:24 | PDOC PROGRESS REPORT ---
<YUE BARRETO - Last Filed: 02/14/18 19:12> Subjective Progress Note for:: 02/14/18 Subjective:: SUZY GRANDE is a 32 y.o. F with a PMH of asthma and morbid obesity. She presented to [facility] 02/12/2018 with an asthma exacerbation. Patient was seen this morning on rounds, she was resting in bed on BiPAP while taking a nap. The patient is easily arousable, and able to remove her own BiPAP and switched to nasal cannula. The patient states she put herself on BiPAP because she was feeling short of breath. The patient also endorses midsternal/left anterior chest wall pain, exacerbated with inhalation. Not reproducible with palpation. Upon assessment, lungs are clear to auscultation, normal S1-S2. The patient appears mildly short of breath, she frequently pauses to take a breath during conversation. Reason For Visit: ASTHMA EXACERBATION ACUTE BRONCHITIS SUPER Physical Exam Vital Signs: Temp Pulse Resp BP Pulse Ox 97.9 F 87 18 158/97 H 97 02/14/18 15:54 02/14/18 16:28 02/14/18 16:28 02/14/18 15:54 02/14/18 16:28 Pulse Oximeter Continuous Start: 02/12/18 02: 59 Freq: RTQ4 Status: Active Document 02/14/18 16:28 [facility] (Rec: 02/14/18 17:08 [facility] [email or web address]) Pulse Oximetry Assessment Oxygen Saturation (92-100) 97 Oxygen Flow Rate (L/min) 2 Oxygen Delivery Method Nasal Cannula Fraction of Inspired Oxygen (FIO2) 28 Equipment Usage Equipment in Use Continuous SpO2 Machine # 10 Intake & Output 02/13/18 02/14/18 02/15/18 06:59 06:59 06:59 Intake Total 2 1054 252 Balance 2041 2912 252 Weight 152.2 kg 154.4 kg 154.4 kg General appearance: PRESENT: morbidly obese Eye exam: PRESENT: PERRLA Mouth exam: PRESENT: moist Neck exam: PRESENT: full ROM Respiratory exam: PRESENT: clear to auscultation rocky, symmetrical, tachypnea, unlabored. ABSENT: chest wall tenderness, rhonchi, stridor, wheezes Cardiovascular exam: PRESENT: +S1, +S2 Pulses: PRESENT: normal radial pulses, normal dorsalis pedis pul GI/Abdominal exam: PRESENT: normal bowel sounds, soft. ABSENT: tenderness Rectal exam: PRESENT: deferred Extremities exam: PRESENT: full ROM Musculoskeletal exam: PRESENT: ambulatory, full ROM Neurological exam: PRESENT: alert, awake, oriented to person, oriented to place , oriented to time, oriented to situation Psychiatric exam: PRESENT: appropriate affect Skin exam: PRESENT: dry, intact, normal color Results Laboratory Results: 02/14/18 04:25 02/14/18 04:25 02/14/18 02/14/18 04:25 04:25 WBC 19.3 H RBC 4.47 Hgb 11.9 L Hct 36.1 MCV 81 MCH 26.6 L MCHC 33.0 RDW 17.5 H Plt Count 367 Seg Neutrophils % 76.9 Lymphocytes % 17.0 Monocytes % 5.4 Eosinophils % 0.1 Basophils % 0.6 Absolute Neutrophils 14.8 H Absolute Lymphocytes 3.3 Absolute Monocytes 1.0 Absolute Eosinophils 0.0 Absolute Basophils 0.1 Sodium 141.3 Potassium 5.2 H Chloride 101 Carbon Dioxide 29 Anion Gap 11 BUN 30 H Creatinine 0.78 Est GFR ( Amer) > 60 Est GFR (Non-Af Amer) > 60 Glucose 129 H Calcium 9.5 02/13/18 02/14/18 02/14/18 05:30 11:40 11:40 Creatine Kinase 66 CK-MB (CK-2) 1.36 Troponin I < 0.012 NT-Pro-B Natriuret Pep 199 H Impressions: Chest X-Ray 02/12/18 01:41 IMPRESSION: 1. No acute pulmonary process identified. Status: Imported from PACS Assessment & Plan - Diagnosis (1) Chest pain QualifierTitle: Chest pain type: chest pain on breathing Qualified Code(s ): R07.1 - Chest pain on breathing; R07.81 - Pleurodynia Is this a current diagnosis for this admission?: Yes Plan: Patient began complaining of midsternal/left anterior chest wall pain today The patient states her pain is exacerbated with inhalation, it is not reproducible with palpation, it is not exacerbated with movement or activity She states her pain is mild to moderate in severity EKG shows NSR, no evidence of acute infarct or ischemia Troponin<0.012, continue to trend every 6 hours 2 Symptoms are suspicious of PE versus pleuritic chest pain Plan for d-dimer today at 1900 with 2nd set of cardiac enzymes, if positive will perform CTA If d-dimer negative, will simply treat her pain with mild analgesics (2) Asthma exacerbation QualifierTitle: Asthma severity: severe Asthma persistence: persistent Qualified Code(s): J45.51 - Severe persistent asthma with (acute) exacerbation Is this a current diagnosis for this admission?: Yes Plan: Worsening; patient now with regular and even respirations and fully conversational on supplemental oxygen by nasal cannula. Lung sounds are clear to auscultation. No adventitious lung sounds today. Chest x-ray benign. ProBNP mildly elevated at 340 --> 199 D-dimer initially normal The patient was admitted to [facility] on continuous cardiac telemetry. She is placed on supplemental oxygen as needed to maintain oxygen saturations greater than 90%. The patient utilized BiPAP overnight and today while taking naps; able to maintain saturations on nasal cannula, but is dependent on supplemental oxygen, which she does not use at home. Utilize BiPAP as necessary. IV Solu-Medrol increased to 40 mg every 8 hours since patient was complaining of dyspnea Continue scheduled and as needed nebulizer treatments. Consider need for maintenance asthma therapy. (3) Bronchitis Is this a current diagnosis for this admission?: Yes Plan: The patient was empirically placed on IV doxycycline secondary to respiratory distress. She has developed a productive cough while inpatient We will continue antibiotics. Mucinex twice daily (4) Diabetes QualifierTitle: Diabetes mellitus type: type 2 Diabetes mellitus complication status: without complication Is this a current diagnosis for this admission?: Yes Plan: The patient reports that she previously has been told that she was prediabetic but has never been on medications. A1c 7.4%. She is placed on a consistent carb and cardiac diet. Accu-Cheks before meals and at bedtime with Humalog for sliding scale coverage while inpatient and on glucocorticoids. We will ask the staff educator and registered dietitian to meet with the patient. (5) GERD (gastroesophageal reflux disease) Is this a current diagnosis for this admission?: Yes Plan: Continue PPI (6) Hypertension Is this a current diagnosis for this admission?: Yes Plan: The patient's home medication is resumed. IV hydralazine as needed for blood pressure control. She is placed on a cardiac diet. - Time Time Spent with patient: 15-24 minutes Medications reviewed and adjusted accordingly: Yes Anticipated discharge: Home Within: within 48 hours - Inpatient Certification Based on my medical assessment, after consideration of the patient's comorbidities, presenting symptoms, or acuity I expect that the services needed warrant INPATIENT care.: Yes I certify that my determination is in accordance with my understanding of Medicare's requirements for reasonable and necessary INPATIENT services [42 CFR 412.3e].: Yes Medical Necessity: Risk of Complication if Not Cared For in Hospital <DUSTIN DAWSON - Last Filed: 02/15/18 07:40> Subjective Reason For Visit: ASTHMA EXACERBATION ACUTE BRONCHITIS SUPER Physical Exam Vital Signs: Temp Pulse Resp BP Pulse Ox 98.0 F 84 22 H 159/98 H 94 02/14/18 23:51 02/15/18 02:00 02/15/18 04:00 02/14/18 23:51 02/15/18 04:00 Pulse Oximeter Continuous Start: 02/12/18 02: 59 Freq: RTQ4 Status: Active Document 02/15/18 04:00 [facility] (Rec: 02/15/18 04:52 [facility] [email or web address]) Pulse Oximetry Assessment Oxygen Saturation (92-100) 94 Oxygen Delivery Method Bi-pap Fraction of Inspired Oxygen (FIO2) 28 Equipment Usage Equipment in Use Continuous SpO2 Machine # 10 Intake & Output 02/14/18 02/15/18 02/16/18 06:59 06:59 06:59 Intake Total 2912 1246 Balance 2912 1246 Weight 154.4 kg 147.6 kg Results Laboratory Results: 02/15/18 05:08 02/14/18 04:25 02/15/18 05:08 WBC 20.6 H RBC 4.66 Hgb 12.3 Hct 37.2 MCV 80 MCH 26.5 L MCHC 33.2 RDW 17.6 H Plt Count 407 Seg Neutrophils % Not Reportable Lymphocytes % Not Reportable Monocytes % Not Reportable Eosinophils % Not Reportable Basophils % Not Reportable Absolute Neutrophils Not Reportable Absolute Lymphocytes Not Reportable Absolute Monocytes Not Reportable Absolute Eosinophils Not Reportable Absolute Basophils Not Reportable 02/13/18 02/14/18 02/14/18 05:30 11:40 11:40 Creatine Kinase 66 CK-MB (CK-2) 1.36 Troponin I < 0.012 NT-Pro-B Natriuret Pep 199 H 02/14/18 02/14/18 19:38 19:38 Creatine Kinase 59 CK-MB (CK-2) Troponin I < 0.012 NT-Pro-B Natriuret Pep Impressions: Chest X-Ray 02/12/18 01:41 IMPRESSION: 1. No acute pulmonary process identified. Provider Note Provider Note: I have discussed this patient in detail with JENI Barreto. I am in agreement with her evaluation and plan.
[2018-02-14] MEDS: IPRATROPIUM/ALBUTEROL 0.5-2.5 MG/3 ML AMPUL NEB SCH (19:55)
--- NOTE | 2018-02-14 20:30 | EKG REPORT ---
SEVERITY:- ABNORMAL ECG - SINUS RHYTHM CONSIDER LEFT VENTRICULAR HYPERTROPHY : Confirmed by: Analisa Olivera MD 14-Feb-2018 20:30:00
[2018-02-15] MEDS: IPRATROPIUM/ALBUTEROL 0.5-2.5 MG/3 ML AMPUL NEB SCH ×4 (01:01→20:30)
[2018-02-15] MEDS: IPRATROPIUM BROMIDE 0.02% NEB 0.5 MG/2.5 ML AMPUL NEB SCH ×2 (01:01→08:26)
[2018-02-15] MEDS: HEPARIN SOD (PORCINE) 5,000 UNIT/ML 1 ML SYRINGE SUBCUT SCH ×3 (05:34→21:15)
[2018-02-15] MEDS: TRIAMTERENE/HYDROCHLOROTHIAZIDE 37.5-25 MG TABLET PO SCH ×2 (05:37→18:40)
[2018-02-15] MEDS: METHYLPREDNISOLONE INJ 40 MG/1 ML SDV IV SCH ×3 (05:37→21:15)
[2018-02-15] MEDS: DOXYCYCLINE HYCLATE 100 MG TABLET PO SCH ×2 (05:37→18:40)
[2018-02-15 05:40] LABS: HEMATOCRIT 37.2 % (36.0-47.0); HEMOGLOBIN 12.3 g/dL (12.0-15.5); MEAN CORPUSCULAR HEMOGLOBIN 26.5 pg (27.0-33.4); MEAN CORPUSCULAR HGB CONC 33.2 g/dL (32.0-36.0); MEAN CORPUSCULAR VOLUME 80 fl (80-97); PLATELET COUNT 407 10^3/uL (150-450); RED BLOOD COUNT 4.66 10^6/uL (3.72-5.28); RED CELL DISTRIBUTION WIDTH 17.6 % (11.5-14.0); WHITE BLOOD COUNT 20.6 10^3/uL (4.0-10.5)
[2018-02-15 06:47] LABS: ABSOLUTE LYMPHOCYTES# (MANUAL) 3.1 10^3/uL (0.5-4.7); ABSOLUTE NEUTROPHILS# (MANUAL) 17.5 10^3/uL (1.7-8.2); BASOPHILS % (MANUAL) 0 % (0-2); EOSINOPHILS % (MANUAL) 0 % (0-6); LYMPHOCYTES % (MANUAL) 15 % (13-45); MONOCYTES % (MANUAL) 0 % (3-13); SEGMENTED NEUTROPHILS % (MAN) 85 % (42-78); TOTAL CELLS COUNTED 100
[2018-02-15 06:49] LABS: ANISOCYTOSIS 1+; PLATELET COMMENT ADEQUATE; TOXIC GRANULATION SLIGHT; TOXIC VACUOLATION PRESENT
[2018-02-15] MEDS: INSULIN LISPRO 100 UNIT/ML 3 ML VIAL SUBCUT PRN ×2 (08:24→13:19)
[2018-02-15] MEDS: LANSOPRAZOLE 30 MG TAB.RAP.DR PO SCH ×2 (09:45→18:40)
[2018-02-15] MEDS: FLUTICASONE NASAL SPRAY 50 MCG/SPRY 120 SPRAY/16 GM NASL SCH ×2 (09:46→21:14)
[2018-02-15] MEDS: ACETAMINOPHEN 325 MG TABLET PO PRN (14:03)
--- NOTE | 2018-02-15 17:20 | PDOC PROGRESS REPORT ---
<ADELAIDAYUE A - Last Filed: 02/15/18 17:05> Subjective Progress Note for:: 02/15/18 Subjective:: SUZY GRANDE is a 32 y.o. F with a PMH of asthma and morbid obesity. She presented to [facility] 02/12/2018 with an asthma exacerbation. Patient was seen this morning on rounds, she is resting comfortably in bed on nasal cannula. The patient is alert and oriented 3, able to answer all questions appropriately and without pause. The patient states that she feels much better today. She states that her chest pain that began yesterday resolved overnight. She is asking when she can be discharged home. Upon assessment, her lung sounds are clear to auscultation. Normal S1-S2, no murmur , rubs or gallops. Update at 1400 : Nursing staff was successfully able to wean the patient to room air. Additionally the patient was able to ambulate in the hallway on room air without becoming hypoxic. The patient admits to very mild dyspnea while ambulating, but states this is the first time she has ambulated outside of her room in 3 days. Discharge planning was made aware that the patient will require home CPAP and nebulizer. Barring any complications, plan to discharge patient home tomorrow. Reason For Visit: ASTHMA EXACERBATION ACUTE BRONCHITIS SUPER Physical Exam Vital Signs: Temp Pulse Resp BP Pulse Ox 98.0 F 95 16 150/96 H 97 02/15/18 15:50 02/15/18 15:50 02/15/18 15:50 02/15/18 15:50 02/15/18 15:50 Pulse Oximeter Continuous Start: 02/12/18 02: 59 Freq: RTQ4 Status: Active Document 02/15/18 11:51 TPO (Rec: 02/15/18 11:51 TPO [email or web address]) Pulse Oximetry Assessment Oxygen Saturation (92-100) 96 Oxygen Flow Rate (L/min) 2 Oxygen Delivery Method Nasal Cannula Fraction of Inspired Oxygen (FIO2) 28 Equipment Usage Equipment in Use Continuous SpO2 Machine # 10 Intake & Output 02/14/18 02/15/18 02/16/18 06:59 06:59 06:59 Intake Total 2912 1246 321 Balance 2912 1246 321 Weight 154.4 kg 147.6 kg General appearance: PRESENT: morbidly obese Eye exam: PRESENT: conjunctiva pink, PERRLA Mouth exam: PRESENT: moist Neck exam: PRESENT: full ROM Respiratory exam: PRESENT: clear to auscultation rocky, symmetrical, unlabored Cardiovascular exam: PRESENT: +S1, +S2 Pulses: PRESENT: normal radial pulses, normal dorsalis pedis pul GI/Abdominal exam: PRESENT: normal bowel sounds, soft. ABSENT: tenderness Rectal exam: PRESENT: deferred Extremities exam: PRESENT: full ROM. ABSENT: joint swelling, pedal edema Musculoskeletal exam: PRESENT: ambulatory, full ROM Neurological exam: PRESENT: alert, awake, oriented to person, oriented to place , oriented to time, oriented to situation Psychiatric exam: PRESENT: appropriate affect Skin exam: PRESENT: dry, intact, pallor Results Laboratory Results: 02/15/18 05:08 02/14/18 04:25 02/15/18 05:08 WBC 20.6 H RBC 4.66 Hgb 12.3 Hct 37.2 MCV 80 MCH 26.5 L MCHC 33.2 RDW 17.6 H Plt Count 407 Seg Neutrophils % Not Reportable Lymphocytes % Not Reportable Monocytes % Not Reportable Eosinophils % Not Reportable Basophils % Not Reportable Absolute Neutrophils Not Reportable Absolute Lymphocytes Not Reportable Absolute Monocytes Not Reportable Absolute Eosinophils Not Reportable Absolute Basophils Not Reportable 02/13/18 02/14/18 02/14/18 05:30 11:40 11:40 Creatine Kinase 66 CK-MB (CK-2) 1.36 Troponin I < 0.012 NT-Pro-B Natriuret Pep 199 H 02/14/18 02/14/18 19:38 19:38 Creatine Kinase 59 CK-MB (CK-2) Troponin I < 0.012 NT-Pro-B Natriuret Pep Impressions: Chest X-Ray 02/12/18 01:41 IMPRESSION: 1. No acute pulmonary process identified. Status: Imported from PACS Assessment & Plan - Diagnosis (1) Chest pain QualifierTitle: Chest pain type: chest pain on breathing Qualified Code(s ): R07.1 - Chest pain on breathing; R07.81 - Pleurodynia Is this a current diagnosis for this admission?: Yes Plan: Resolved. Patient states she has no longer experiencing chest pain. Patient began complaining of midsternal/left anterior chest wall pain yesterday Pain was exacerbated with inhalation, not reproducible with palpation, not exacerbated with movement or activity EKG showed NSR, no evidence of acute infarct or ischemia Serial cardiac enzymes normal, no longer trending D-dimer 0.29 (negative) no plans for CTA, low suspicion for PE Pain is most likely pleuritic in nature (2) Asthma exacerbation QualifierTitle: Asthma severity: severe Asthma persistence: persistent Qualified Code(s): J45.51 - Severe persistent asthma with (acute) exacerbation Is this a current diagnosis for this admission?: Yes Plan: Improving. Patient now with regular and even respirations and fully conversational on room air. Lung sounds are clear to auscultation. No adventitious lung sounds today. Chest x-ray benign. ProBNP mildly elevated at 340 --> 199 D-dimer normal The patient was admitted to [facility] on continuous cardiac telemetry. Supplemental oxygen as needed to maintain oxygen saturations greater than 90%. BIPAP at night and PRN during the day IV Solu-Medrol 40 mg every 8 hours since patient was complaining of dyspnea, will begin weaning tomorrow Continue scheduled and as needed nebulizer treatments. Consider need for maintenance asthma therapy. (3) Bronchitis Is this a current diagnosis for this admission?: Yes Plan: The patient was empirically placed on IV doxycycline secondary to respiratory distress. She has developed a productive cough while inpatient Continue antibiotics, will likely require a few days of treatment post-discharge Mucinex twice daily (4) Diabetes QualifierTitle: Diabetes mellitus type: type 2 Diabetes mellitus complication status: without complication Is this a current diagnosis for this admission?: Yes Plan: The patient reports that she previously has been told that she was prediabetic but has never been on medications. A1c 7.4%. She is placed on a consistent carb and cardiac diet. Accu-Cheks before meals and at bedtime with Humalog for sliding scale coverage while inpatient and on glucocorticoids. We will ask the patient educator and registered dietitian to meet with the patient. (5) GERD (gastroesophageal reflux disease) Is this a current diagnosis for this admission?: Yes Plan: Continue PPI (6) Hypertension Is this a current diagnosis for this admission?: Yes Plan: The patient's home medication is resumed. IV hydralazine as needed for blood pressure control. She is placed on a cardiac diet. (7) Obstructive sleep apnea Is this a current diagnosis for this admission?: Yes Plan: Secondary to morbid obesity Patient has required BIPAP at night while inpatient Patient does not have CPAP at home Discharge planning aware that patient will require CPAP once she returns home, appreciate their assistance in obtaining the proper equipments - Time Time Spent with patient: 15-24 minutes Medications reviewed and adjusted accordingly: Yes Anticipated discharge: Home Within: within 48 hours - Inpatient Certification Based on my medical assessment, after consideration of the patient's comorbidities, presenting symptoms, or acuity I expect that the services needed warrant INPATIENT care.: Yes I certify that my determination is in accordance with my understanding of Medicare's requirements for reasonable and necessary INPATIENT services [42 CFR 412.3e].: Yes Medical Necessity: Risk of Complication if Not Cared For in Hospital - Plan Summary Plan Summary: Continue nebulizers and IV steroids. Continue empiric antibiotics for bronchitis. Continue BiPAP at night and as needed during the day. Keep patient on room air as long as SPO2>93% and/or not complaining of shortness of breath <SWAYZE,DUSTIN M - Last Filed: 02/16/18 10:05> Subjective Reason For Visit: ASTHMA EXACERBATION ACUTE BRONCHITIS SUPER Physical Exam Vital Signs: Temp Pulse Resp BP Pulse Ox 97.8 F 72 16 148/90 H 97 02/16/18 07:40 02/16/18 07:40 02/16/18 07:40 02/16/18 07:40 02/16/18 07:40 Pulse Oximeter Continuous Start: 02/12/18 02: 59 Freq: RTQ4 Status: Active Document 02/16/18 04:00 SFL (Rec: 02/16/18 05:54 SFL [email or web address]) Pulse Oximetry Assessment Oxygen Saturation (92-100) 97 Oxygen Delivery Method Room Air Equipment Usage Equipment in Use Continuous SpO2 Machine # 10 Intake & Output 02/15/18 02/16/18 02/17/18 06:59 06:59 06:59 Intake Total 1246 1447 Output Total 1 Balance 1246 1446 Weight 147.6 kg 147.1 kg Results Laboratory Results: 02/15/18 05:08 02/14/18 04:25 02/13/18 02/14/18 02/14/18 05:30 11:40 11:40 Creatine Kinase 66 CK-MB (CK-2) 1.36 Troponin I < 0.012 NT-Pro-B Natriuret Pep 199 H 02/14/18 02/14/18 19:38 19:38 Creatine Kinase 59 CK-MB (CK-2) Troponin I < 0.012 NT-Pro-B Natriuret Pep Impressions: Chest X-Ray 02/12/18 01:41 IMPRESSION: 1. No acute pulmonary process identified. Provider Note Provider Note: I have discussed this patient in detail with JENI Barreto. I am in agreement with her evaluation and plans.
[2018-02-16] MEDS: IPRATROPIUM/ALBUTEROL 0.5-2.5 MG/3 ML AMPUL NEB SCH ×4 (02:34→19:55)
[2018-02-16] MEDS: METHYLPREDNISOLONE INJ 40 MG/1 ML SDV IV SCH (06:05)
[2018-02-16] MEDS: TRIAMTERENE/HYDROCHLOROTHIAZIDE 37.5-25 MG TABLET PO SCH ×2 (06:05→17:54)
[2018-02-16] MEDS: HEPARIN SOD (PORCINE) 5,000 UNIT/ML 1 ML SYRINGE SUBCUT SCH ×2 (06:06→13:32)
[2018-02-16] MEDS: DOXYCYCLINE HYCLATE 100 MG TABLET PO SCH ×2 (06:10→17:54)
[2018-02-16] MEDS: INSULIN LISPRO 100 UNIT/ML 3 ML VIAL SUBCUT PRN ×3 (08:43→16:52)
[2018-02-16] MEDS: FLUTICASONE NASAL SPRAY 50 MCG/SPRY 120 SPRAY/16 GM NASL SCH (10:14)
[2018-02-16] MEDS: LANSOPRAZOLE 30 MG TAB.RAP.DR PO SCH ×2 (10:14→17:54)
[2018-02-16] MEDS ORDERED: METHYLPREDNISOLONE INJ 40 MG/1 ML SDV IV SCH (18:00)
[2018-02-16 19:31] VITALS: BP 145/95
--- NOTE | 2018-03-05 18:08 | PDOC DISCHARGE SUMMARY ---
General - Admit/Disc Date/PCP Admission Date/Primary Care Provider: 02/12/18 02:59 Discharge Date: 02/16/18 - Discharge Diagnosis (1) Chest pain Is this a current diagnosis for this admission?: Yes (2) Asthma exacerbation Is this a current diagnosis for this admission?: Yes (3) Bronchitis Is this a current diagnosis for this admission?: Yes (4) Diabetes Is this a current diagnosis for this admission?: Yes (5) GERD (gastroesophageal reflux disease) Is this a current diagnosis for this admission?: Yes (6) Hypertension Is this a current diagnosis for this admission?: Yes (7) Obstructive sleep apnea Is this a current diagnosis for this admission?: Yes - Additional Information Resuscitation Status: Full Code Discharge Diet: Diabetic Discharge Activity: Activity As Tolerated Prescriptions: Albuterol Sulfate [Proair Respiclick] 90 mcg IH Q8 #1 aer.pow.ba MDD 3 Albuterol Sulfate [Ventolin 0.083% Neb 2.5 mg/3 mL Ampul] 1 vial NEB Q4 #5 vial.neb Insulin Lispro [Humalog Kwikpen U-200] 200 unit SQ ACHS #1 insuln.pen Montelukast Sodium [Singulair 10 mg Tablet] 10 mg PO QHS #30 tablet Prednisone 20 mg PO DAILY #19 tablet Triamterene/Hydrochlorothiazid [Triamterene-Hctz 37.5-25 mg Tb] 1 each PO DAILY #90 tablet Triamterene/Hydrochlorothiazid [Triamterene-Hctz 37.5-25 mg Cp] 1 each PO DAILY #90 capsule Triamterene/Hydrochlorothiazid [Triamterene-Hctz 37.5-25 mg Cp] 1 each PO DAILY #90 capsule Home Medications: Albuterol Sulfate [Proair HFA] 4 puff IH Q4H 02/12/18 Albuterol Sulfate [Proair Respiclick] 90 mcg IH Q8 #1 aer.pow.ba MDD 3 02/16/18 Albuterol Sulfate [Ventolin 0.083% Neb 2.5 mg/3 mL Ampul] 1 vial NEB Q4 #5 vial.neb 02/16/18 Insulin Lispro [Humalog Kwikpen U-200] 200 unit SQ ACHS #1 insuln.pen 02/16/18 Montelukast Sodium [Singulair 10 mg Tablet] 10 mg PO QHS #30 tablet 02/16/18 Prednisone 20 mg PO DAILY #19 tablet 02/16/18 Triamterene/Hydrochlorothiazid [Triamterene-Hctz 37.5-25 mg Cp] 1 each PO DAILY #90 capsule 02/16/18 Triamterene/Hydrochlorothiazid [Triamterene-Hctz 37.5-25 mg Cp] 1 each PO DAILY #90 capsule 02/16/18 Triamterene/Hydrochlorothiazid [Triamterene-Hctz 37.5-25 mg Tb] 1 each PO DAILY #90 tablet 02/16/18 History of Present Illness History of Present Illness: Per Dr. Rand: SUZY GRANDE is a 32 year old female with a past medical history of super morbid obesity, hypertension and asthma who presents with 4 days of fatigue and exertional wheeze with shortness of breath. She recognizes these symptoms as previous episodes of asthma exacerbation. With paroxysms of cough while trying to speak. 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 In the emergency room she requires continuous nebulizer, Solu-Medrol and magnesium. She denies chest pain, palpitations, nausea vomiting or abrupt onset of leg swelling. She is referred to the hospitalist for admission Hospital Course Hospital Course: 32 y.o. F with supermorbid obesity, asthma, and DM presented with symptoms of persistent asthma that began several weeks ago and progressively became worse. In the days leading up to her admission, she was experiencing dyspnea with exertion, wheezing, nighttime waking and coughing. While in the ED, she was treated with IV magnesium, nebulizers and IV solumedrol. CXR benign. Shortly following admission to [facility] the patient required BIPAP for persistent hypoxia and tachypnea. Her dosing of IV steroids was increased and she was provided scheduled nebulizer treatments. The patient endorsed a productive cough with green sputum and was started on doxycycline for empiric antibiotic coverage. By day 3 the patient was able to wean from continuous BIPAP to QHS/PRN BIPAP and supplemental oxygen via nasal cannula when awake. The following day, the patient was able to wean to room air and tolerate ambulation without becoming hypoxic. The patient reported that she was previously told that she was prediabetic, but never needed medications. Her Hgb A1c upon arrival was 7.4%. The patient was placed on a a consistent carb and cardiac diet and her glucose was managed with ACHS Humalog sliding scale coverage. The patient was told she would need to start monitoring her glucose at home and take insulin on a regular basis. We requested that the special education paraeducator meet with the patient. After 5 days in the hospital, the patient was deemed safe for discharge. Her vital signs were stable, she no longer required supplemental oxygen, and her respiratory symptoms had resolved. Discharge teaching was very extensive for this particular patient. For her asthma, the patient was sent home on a prednisone taper, and she was given prescriptions for an albuterol rescue inhaler, albuterol nebulizer treatments, and PO singulair to help control her asthma symptoms. systems requirements planner, Ale Terrell, gave the patient instructions on how to buy or rent a nebulizer machine since her insurance would not pay for one. The patient was offered extensive teaching about her new diabetes treatment plan, when to check her blood glucose, how to self- administer insulin, and dietary restrictions she needed to follow. For her diabetes, the patient was provided prescriptions for a glucometer, lancets, test strips, and a humalog pen. She was also provided a new prescription for her home blood pressure medication because she had no refills left. The patient told staff that she was traveling to [place] 2 days following her discharge. She was informed that this was not a good idea considering the seriousness of her asthma exacerbation and that we would be happy to provide her with documentation for the airlines to change/refund her plane tickets. The patient declined and stated that she really wanted to travel to [place] to see her family. For any further information regarding the patient's hospitalization, please refer to the EMR. Physical Exam Vital Signs: Temp Pulse Resp BP Pulse Ox 98.0 F 96 16 145/95 H 94 02/16/18 19:27 02/16/18 19:27 02/16/18 19:27 02/16/18 19:27 02/16/18 19:27 Pulse Oximeter Continuous Start: 02/12/18 02: 59 Freq: RTQ4 Status: Complete Document 02/16/18 19:55 EST (Rec: 02/16/18 20:32 EST [email or web address]) Pulse Oximetry Assessment Equipment Usage Equipment Discontinued Continuous SpO2 Machine # 10 Results Laboratory Results: 02/15/18 05:08 02/14/18 04:25 02/13/18 02/14/18 02/14/18 05:30 11:40 11:40 Creatine Kinase 66 CK-MB (CK-2) 1.36 Troponin I < 0.012 NT-Pro-B Natriuret Pep 199 H 02/14/18 02/14/18 19:38 19:38 Creatine Kinase 59 CK-MB (CK-2) Troponin I < 0.012 NT-Pro-B Natriuret Pep Impressions: Chest X-Ray 02/12/18 01:41 IMPRESSION: 1. No acute pulmonary process identified. Status: Imported from PACS Qualifiers - * PATIENT BEING DISCHARGED WITH ANY OF THE FOLLOWING DIAGNOSIS: No Plan Discharge Plan: DISCHARGE HOME WITH INHALERS, SINGULAIR, STEROID TAPER, INSULIN, AND TRIAMTERENE /HCTZ Time Spent: Greater than 30 Minutes
== END 2018-02-16 20:38 | disposition home or self-care (01) | DRG 202 ==
LOC: ER 23:10 → EH 02-12 02:59 → 3W 02-12 06:45
PROVIDERS: ADMIT Internal Medicine; ATTEND Internal Medicine
PROC: 5A09557 Assistance with Respiratory Ventilation, Greater than 96 Consecutive Hours, Continuous Positive Airway Pressure (ICD-10-PCS; principal; 2018-02-12)
DX: J45.51 Severe persistent asthma with (acute) exacerbation (principal); Z68.45 Body mass index [BMI] 70 or greater, adult; E66.01 Morbid (severe) obesity due to excess calories; J40 Bronchitis, not specified as acute or chronic; I10 Essential (primary) hypertension; F90.9 Attention-deficit hyperactivity disorder, unspecified type; E11.9 Type 2 diabetes mellitus without complications; K21.9 Gastro-esophageal reflux disease without esophagitis; R09.02 Hypoxemia; T38.0X5A Adverse effect of glucocorticoids and synthetic analogues, initial encounter; D72.829 Elevated white blood cell count, unspecified; G47.33 Obstructive sleep apnea (adult) (pediatric); Z83.3 Family history of diabetes mellitus; Z82.49 Family history of ischemic heart disease and other diseases of the circulatory system; Z71.3 Dietary counseling and surveillance; Z90.49 Acquired absence of other specified parts of digestive tract
CPT/HCPCS: 36415; 71045; 80048; 82550; 82553; 82962; 83036; 83880; 84443; 84484; 84703; 85025; 85379; 93005; 93010; 94640; 94660; 94762; 94799; 96365; 96375; 99291; J1644; J1815; J1940; J2920; J2930; J3475; J3490; J7060; J7512; J7620

== ENCOUNTER 2018-03-13 20:16 | Inpatient (IN) | payer MEDICAID ==
[2018-03-13] MEDS ORDERED: IPRATROPIUM/ALBUTEROL 0.5-2.5 MG/3 ML AMPUL NEB ONE (20:28)
[2018-03-13] MEDS ORDERED: METHYLPREDNISOLONE INJ 125 MG/2 ML SDV IV ONE (20:28)
--- NOTE | 2018-03-13 20:30 | ER Document Report ---
ED Medical Screen (RME) - General Chief Complaint: Shortness Of Breath Stated Complaint: SHORTNESS OF BREATH Time Seen by Provider: 03/13/18 20:28 Notes: 32 years old female with a history of asthma, admitted recently to the hospital , was sent over by the primary care physician for exacerbation of asthma. Examination-morbidly obese and bilaterally decreased breath sounds. TRAVEL OUTSIDE OF THE [place] IN LAST 30 DAYS: No - Related Data Allergies/Adverse Reactions: No Known Allergies Allergy (Verified 02/12/18 04:21) Past Medical History - Past Medical History Cardiac Medical History: Reports: Hx Hypertension Pulmonary Medical History: Reports: Hx Asthma, Hx Bronchitis - "I have REactive airway, use inhaler once in awhile" Renal/ Medical History: Denies: Hx Peritoneal Dialysis Psychiatric Medical History: Reports: Hx Attention Deficit Hyperactivity Disorder Past Surgical History: Reports: Hx Section - 2, Hx Cholecystectomy, Hx Genitourinary Surgery - Immunizations Immunizations up to date: Yes Hx Diphtheria, Pertussis, Tetanus Vaccination: Yes History of Influenza Vaccine for 05/2017 - 10/2017 Season: Unknown Physical Exam - Vital signs Vitals: Temp Pulse Resp BP Pulse Ox 98.0 F 119 H 26 H 158/92 H 93 03/13/18 20:23 03/13/18 20:23 03/13/18 20:23 03/13/18 20:23 03/13/18 20:23 Course - Vital Signs Vital signs: Temp Pulse Resp BP Pulse Ox 98.0 F 119 H 26 H 158/92 H 93 03/13/18 20:23 03/13/18 20:23 03/13/18 20:23 03/13/18 20:23 03/13/18 20:23
[2018-03-13] MEDS: ALBUTEROL SULFATE 0.083% NEB 2.5 MG/3 ML AMPUL NEB SCH ×2 (20:50→22:24)
[2018-03-13] MEDS: MAGNESIUM SULFATE/D5W 1 GM/100 ML RTUPB IV SCH ×2 (22:08→22:44)
--- NOTE | 2018-03-13 22:12 | RADIOLOGY REPORT (SQ) ---
EXAM DESCRIPTION: CHEST SINGLE VIEW COMPLETED DATE/TIME: 03/13/2018 10:02 pm REASON FOR STUDY: Shortness of breath and wheezing COMPARISON: 02/12/2018 EXAM PARAMETERS: NUMBER OF VIEWS: One view. TECHNIQUE: Single frontal radiographic view of the chest acquired. RADIATION DOSE: NA LIMITATIONS: None. FINDINGS: LUNGS AND PLEURA: Is ill-defined opacification in the medial right base just below the rig ht hilum. MEDIASTINUM AND HILAR STRUCTURES: No masses. Contour normal. HEART AND VASCULAR STRUCTURES: Borderline cardiomegaly with no pulmonary edema. BONES: No acute findings. HARDWARE: None in the chest. OTHER: No other significant finding. IMPRESSION: Borderline cardiomegaly without CHF. Cannot exclude limited right middle lobe or lower lobe pneumonia. TECHNICAL DOCUMENTATION: JOB ID: [id number] [email or web address]- All Rights Reserved Reading location - IP/workstation name: [email or web address]
--- NOTE | 2018-03-13 22:20 | ER Document Report ---
ED General - General Chief Complaint: Shortness Of Breath Stated Complaint: SHORTNESS OF BREATH Time Seen by Provider: 03/13/18 20:28 Notes: Patient is a 32-year-old female presents with complaint of difficulty breathing. She has history of asthma. She was recently admitted to the hospital a few weeks ago and released. She said her breathing certainly bit worse again a week ago. She says she has been using her inhaler but has gotten gradually worse and today she went to her follow-up appointment and was sent back here. No fevers. No vomiting. No diarrhea. No chest pain. She quit smoking 5 years ago. No other complaints at this time. TRAVEL OUTSIDE OF THE [place] IN LAST 30 DAYS: No - Related Data Allergies/Adverse Reactions: No Known Allergies Allergy (Verified 02/12/18 04:21) Past Medical History - Social History Smoking Status: Former Smoker Chew tobacco use (# tins/day): No Frequency of alcohol use: None Drug Abuse: None Family History: DM. denies: Arthritis, CAD, COPD, CVA, Hyperlipidemia, Hypertension, Malignancy, Thyroid Disfunction Patient has suicidal ideation: No Patient has homicidal ideation: No - Past Medical History Cardiac Medical History: Reports: Hx Hypertension Pulmonary Medical History: Reports: Hx Asthma, Hx Bronchitis - "I have REactive airway, use inhaler once in awhile" Renal/ Medical History: Denies: Hx Peritoneal Dialysis Psychiatric Medical History: Reports: Hx Attention Deficit Hyperactivity Disorder Past Surgical History: Reports: Hx Section - 2, Hx Cholecystectomy, Hx Genitourinary Surgery - Immunizations Immunizations up to date: Yes Hx Diphtheria, Pertussis, Tetanus Vaccination: Yes Hx Pneumococcal Vaccination: 08/06/00 Review of Systems - Review of Systems Notes: My Normal Review Basic REVIEW OF SYSTEMS: CONSTITUTIONAL : Denies fever, chills, or sweats. Denies recent illness. EENT: Denies eye, ear, throat, or mouth pain or symptoms. Denies nasal or sinus congestion. CARDIOVASCULAR: Denies chest pain. RESPIRATORY: Wheezing and difficulty breathing. Cough. GASTROINTESTINAL: Denies abdominal pain. Denies nausea, vomiting, or diarrhea. Denies constipation. Last BM: MUSCULOSKELETAL: Denies neck or back pain or joint pain or swelling. SKIN: Denies rash or skin lesions. NEUROLOGICAL: Denies altered mental status or loss of consciousness. Denies headache. Denies weakness or paralysis or loss of use of either side. Denies problems with gait or speech. Denies sensory or motor loss. ALL OTHER SYSTEMS REVIEWED AND NEGATIVE. Physical Exam - Vital signs Vitals: Temp Pulse Resp BP Pulse Ox 98.0 F 121 H 26 H 158/92 H 95 03/13/18 20:19 03/13/18 20:19 03/13/18 20:19 03/13/18 20:19 03/13/18 20:19 - Notes Notes: General Appearance: Well nourished, alert, cooperative, mild acute distress, no obvious discomfort. Vitals: reviewed, See vital signs table. Head: no swelling or tenderness to the head Eyes: PERRL, EOMI, Conjuctiva clear Mouth: No decreasd moisture Throat: No tonsillar inflammation, No airway obstruction, No lymphadenopathy Neck: Supple, no neck tenderness, No thyromegaly Lungs: Diffuse lung tightness and rhonchi with exhalation. Heart: Tachycardic rate, Regular rythm, No murmur, no rub Abdomen: Normal BS, soft, No rigidity, No abdominal tenderness, No guarding, no rebound, no abdominal masses, no organomegaly Extremities: strength 5/5 in all extremities, good pulses in all extremities, no swelling or tenderness in the extremities, no edema. Skin: warm, dry, appropriate color, no rash Neuro: speech clear, oriented x 3, normal affect, responds appropriately to questions. Course - Re-evaluation Re-evalutation: 03/13/18 23:39 Patient unfortunately has continued wheezing on exam. She still has some accessory muscle use is mild. Still has mild tachypnea. Her chest x-ray shows pneumonia and she was recently hospitalized and therefore start antibiotics to cover hospital-acquired pneumonia. - Vital Signs Vital signs: Temp Pulse Resp BP Pulse Ox 98.0 F 119 H 24 H 116/57 L 91 L 03/13/18 20:23 03/13/18 20:23 03/13/18 22:05 03/13/18 22:05 03/13/18 22:05 - Laboratory Result Diagrams: 03/13/18 20:45 03/13/18 20:45 Laboratory results interpreted by me: 03/13/18 03/13/18 20:45 20:45 WBC 12.8 H MCH 26.8 L RDW 18.4 H Absolute Neutrophils 8.4 H Potassium 3.5 L Chloride 96 L Glucose 230 H Discharge - Discharge Clinical Impression: Asthma exacerbation Qualifiers: Asthma severity: unspecified severity Asthma persistence: persistent Qualified Code(s): J45.901 - Unspecified asthma with (acute) exacerbation Pneumonia Qualifiers: Pneumonia type: due to unspecified organism Laterality: right Lung location: lower lobe of lung Qualified Code(s): J18.1 - Lobar pneumonia, unspecified organism Condition: Stable Disposition: ADMITTED OBSERVATION Admitting Provider: Hospitalist Unit Admitted: Telemetry
[2018-03-13 22:32] LABS: ABSOLUTE BASOPHILS # (AUTO) 0.1 10^3/uL (0.0-0.2); ABSOLUTE EOSINOPHILS # (AUTO) 0.6 10^3/uL (0.0-0.6); ABSOLUTE LYMPHOCYTES (AUTO) 3.1 10^3/uL (0.5-4.7); ABSOLUTE MONOCYTES (AUTO) 0.6 10^3/uL (0.1-1.4); ABSOLUTE NEUT (AUTO) 8.4 10^3/uL (1.7-8.2); BASOPHILS % (AUTO) 0.6 % (0-2); EOSINOPHILS % (AUTO) 4.9 % (0-6); HEMATOCRIT 37.5 % (36.0-47.0); HEMOGLOBIN 12.3 g/dL (12.0-15.5); LYMPHOCYTES % (AUTO) 24.2 % (13-45); MEAN CORPUSCULAR HEMOGLOBIN 26.8 pg (27.0-33.4); MEAN CORPUSCULAR HGB CONC 32.7 g/dL (32.0-36.0); MEAN CORPUSCULAR VOLUME 82 fl (80-97); MONOCYTES % (AUTO) 4.6 % (3-13); PLATELET COUNT 422 10^3/uL (150-450); RED BLOOD COUNT 4.58 10^6/uL (3.72-5.28); RED CELL DISTRIBUTION WIDTH 18.4 % (11.5-14.0); SEGMENTED NEUTROPHILS % (AUTO) 65.7 % (42-78); TOTAL CELLS COUNTED % (AUTO) 100 %; WHITE BLOOD COUNT 12.8 10^3/uL (4.0-10.5)
[2018-03-13 22:42] LABS: ANION GAP 15 (5-19); BLOOD UREA NITROGEN 10 mg/dL (7-20); CALCIUM 8.9 mg/dL (8.4-10.2); CARBON DIOXIDE 28 mmol/L (22-30); CHLORIDE 96 mmol/L (98-107); GLUCOSE 230 mg/dL (75-110); POTASSIUM 3.5 mmol/L (3.6-5.0); SODIUM 139.1 mmol/L (137-145)
[2018-03-13] MEDS ORDERED: ALBUTEROL SULFATE 0.083% NEB 2.5 MG/3 ML AMPUL NEB ONE (22:55)
[2018-03-13] MEDS ORDERED: LEVOFLOXACIN 750 MG/D5W RTU 750 MG/150 ML RTUPB IV ONE (23:39)
[2018-03-13] MEDS ORDERED: VANCOMYCIN HCL INJ 1000 MG VIAL IV ONE (23:39)
[2018-03-14] MEDS ORDERED: INSULIN REG, HUMAN 100 UNIT/ML 3 ML VIAL (PYX) SUBCUT ONE (02:05)
[2018-03-14] MEDS ORDERED: IPRATROPIUM/ALBUTEROL 0.5-2.5 MG/3 ML AMPUL NEB ONE ×2 (02:56→03:08)
[2018-03-14] MEDS ORDERED: MAG HYDROX/AL HYDROX/SIMETH SUSP 30 ML UDCUP PO PRN (03:50)
[2018-03-14] MEDS ORDERED: MAGNESIUM HYDROXIDE SUSP 30 ML UDCUP PO PRN (03:50)
[2018-03-14] MEDS ORDERED: PROMETHAZINE HCL 25 MG TABLET PO PRN (03:50)
[2018-03-14] MEDS ORDERED: DEXTROSE 40% GEL 15 GM TUBE PO PRN ×2 (03:57)
[2018-03-14] MEDS ORDERED: DEXTROSE 50%-WATER 25 GM/50 ML DISP.SYRIN IV PRN ×2 (03:57)
[2018-03-14] MEDS ORDERED: GLUCAGON,HUMAN RECOMB 1 MG INJ IM PRN (03:57)
[2018-03-14] MEDS ORDERED: POTASSIUM CHLORIDE 20 MEQ/15 ML UDCUP PO ONE (04:00)
[2018-03-14] MEDS ORDERED: CEFEPIME 1 GM/D5W RTU 1 GM/50 ML RTUPB IV ONE (04:15)
--- NOTE | 2018-03-14 05:20 | PDOC H&P ---
History of Present Illness Admission Date/PCP: 03/13/18 23:51 Kelly Duran Patient complains of: Shortness of breath History of Present Illness: SUZY GRANDE is a 32 year old female who was discharged from our facility last month after being hospitalized for bronchial asthma exacerbation. Patient tells me that 3 weeks ago she went to visit family to [facility] and her symptoms came back with nonproductive cough, progressive shortness of breath, wheezing on and off. Also complains of subjective fever with no chills, nausea with no vomiting, pleuritic chest pain. Patient does not follow with any pulmonary physician. Patient has been without medication for several years but recently she had a prescription. There is no documentation that the patient was initially desaturated but she is in obvious respiratory distress, is wearing nasal cannula at 2 L saturating 93%. In the emergency department chest x-ray done which showed possible right me there and lower lobe pneumonia. IV Levaquin and IV vancomycin ordered, along with 125 mg of Solu-Medrol and nebulizer treatments. Initially patient very tachycardic with a heart rate of 119, is still tachycardic and a respiratory rate of 22 Past Medical History Cardiac Medical History: Reports: Hypertension Pulmonary Medical History: Reports: Asthma, Bronchitis - "I have REactive airway , use inhaler once in awhile" Psychiatric Medical History: Reports: Attention Deficit Hyperactivity Disorder Past Surgical History Past Surgical History: Reports: Section - 2, Cholecystectomy Social History Lives with: Family - Her 2 kids are at the bedside Smoking Status: Former Smoker Frequency of Alcohol Use: None Drugs: None Family History Family History: DM. denies: Arthritis, CAD, COPD, CVA, Hyperlipidemia, Hypertension, Malignancy, Thyroid Disfunction Parental Family History Reviewed: No Children Family History Reviewed: NA Sibling(s) Family History Reviewed.: NA Medication/Allergy Home Medications: Albuterol Sulfate [Proair HFA] 4 puff IH Q4H 02/12/18 Albuterol Sulfate [Proair Respiclick] 90 mcg IH Q8 #1 aer.pow.ba MDD 3 02/16/18 Albuterol Sulfate [Ventolin 0.083% Neb 2.5 mg/3 mL Ampul] 1 vial NEB Q4 #5 vial.neb 02/16/18 Insulin Lispro [Humalog Kwikpen U-200] 200 unit SQ ACHS #1 insuln.pen 02/16/18 Montelukast Sodium [Singulair 10 mg Tablet] 10 mg PO QHS #30 tablet 02/16/18 Prednisone 20 mg PO DAILY #19 tablet 02/16/18 Triamterene/Hydrochlorothiazid [Triamterene-Hctz 37.5-25 mg Cp] 1 each PO DAILY #90 capsule 02/16/18 Triamterene/Hydrochlorothiazid [Triamterene-Hctz 37.5-25 mg Cp] 1 each PO DAILY #90 capsule 02/16/18 Triamterene/Hydrochlorothiazid [Triamterene-Hctz 37.5-25 mg Tb] 1 each PO DAILY #90 tablet 02/16/18 Allergies/Adverse Reactions: No Known Allergies Allergy (Verified 02/12/18 04:21) Review of Systems Review of Systems: As outlined in the HPI, all others negative Physical Exam Vital Signs: Temp Pulse Resp BP Pulse Ox 98.7 F 119 H 22 H 136/90 H 98 03/14/18 00:23 03/13/18 20:23 03/14/18 03:50 03/14/18 03:01 03/14/18 03:50 Intake & Output 03/12/18 03/13/18 03/14/18 06:59 06:59 06:59 Intake Total 250 Balance 250 Additional comments: General appearance: Morbid obese, alert and cooperative, and appears to be in acute distress secondary to her respiratory distress. Head: Normocephalic Eyes: PEERL, EOMI, vision is grossly intact. Ears: External auditory canal and tympanic membranes clear, hearing grossly intact. Nose: No nasal discharge. Throat: Oral cavity and pharynx normal. No inflammation, swelling, exudate or lesions. Neck: Neck supple, nontender without lymphadenopathy, masses or thyromegaly. Cardiac: Normal S1 and S2. No S3, S4 or murmurs. Rhythm is regular. There is no peripheral edema, cyanosis or pallor. Extremities are warm and well perfused. Capillary refill is less than 2 seconds. No carotid bruits. Lungs: Bilateral decreased breath sounds with mild rales, no rhonchi, no wheezing at the time of my evaluation but very diminished breath sounds. Not using accessory muscles. Abdomen: Positive bowel sounds. Soft. Nondistended, nontender. No guarding or rebound. No masses. No hepatosplenomegaly Extremities: No significant deformity or joint abnormality. No edema. Peripheral pulses intact. No varicosities. Neurological: Cranial nerves II through XII grossly intact. Strength and sensation symmetric and intact throughout. Reflexes 2+ throughout. Skin: Skin normal color, texture and turgor with no lesions or eruptions, warm and dry. Psychiatric: The mental examination revealed the patient was oriented to person , place, and time. The patient was able to demonstrate good judgment on recent , without hallucinations, abnormal affect or abnormal behaviors. Results Laboratory Results: 03/13/18 03/13/18 03/14/18 20:45 20:45 01:28 WBC 12.8 H RBC 4.58 Hgb 12.3 Hct 37.5 MCV 82 MCH 26.8 L MCHC 32.7 RDW 18.4 H Plt Count 422 Seg Neutrophils % 65.7 Lymphocytes % 24.2 Monocytes % 4.6 Eosinophils % 4.9 Basophils % 0.6 Absolute Neutrophils 8.4 H Absolute Lymphocytes 3.1 Absolute Monocytes 0.6 Absolute Eosinophils 0.6 Absolute Basophils 0.1 Sodium 139.1 Potassium 3.5 L Chloride 96 L Carbon Dioxide 28 Anion Gap 15 BUN 10 Creatinine 0.70 Est GFR ( Amer) > 60 Est GFR (Non-Af Amer) > 60 Glucose 230 H POC Glucose 380 H Calcium 8.9 Impressions: Chest X-Ray 03/13/18 20:28 IMPRESSION: Borderline cardiomegaly without CHF. Cannot exclude limited right middle lobe or lower lobe pneumonia. Assessment & Plan - Diagnosis (1) HCAP (healthcare-associated pneumonia) Is this a current diagnosis for this admission?: Yes Plan: Patient with possible right medial and lower lobe infiltrates, as per patient has been recently admitted and discharged she meets the criteria for age, I will place her on IV cefepime, IV Levaquin, patient already had IV vancomycin. Now I initiated the patient on CPAP. Continue Solu-Medrol 40 mg IV every 8 hours. Nebulizer treatment as needed with Xopenex as is very tachycardic. RT consult. Incentive spirometry. Pulmonary toilet. Sputum culture (2) Asthma exacerbation Qualifiers: Asthma severity: unspecified severity Asthma persistence: persistent Qualified Code(s): J45.901 - Unspecified asthma with (acute) exacerbation Is this a current diagnosis for this admission?: Yes Plan: In addition to her pulmonary infiltrates. As per prior assessment. (3) Diabetes mellitus type 2 in obese Is this a current diagnosis for this admission?: Yes Plan: Patient with recent diagnosis of diabetes mellitus type 2. Accu-Cheks q 6 hours , insulin lispro sliding scale, hypoglycemia protocol. Resume home medications. Continue home insulin lispro. (4) Hypertension Is this a current diagnosis for this admission?: Yes Plan: Continue home medication, last discharged on hydrochlorothiazide with triamterene (5) Morbid obesity with BMI of 70 and over, adult Is this a current diagnosis for this admission?: Yes Plan: Counseling about weight loss, patient tells me that she has lost 65 pounds. - Inpatient Certification Medical Necessity: Risk of Diagnosis Which Will Require Inpatient Eval/Care/ Monitoring
[2018-03-14] MEDS: METHYLPREDNISOLONE INJ 40 MG/1 ML SDV IV SCH ×3 (05:49→21:03)
[2018-03-14] MEDS: INSULIN LISPRO 100 UNIT/ML 3 ML VIAL SUBCUT PRN ×2 (06:37→16:36)
[2018-03-14] MEDS: ENOXAPARIN SODIUM INJ 40 MG/0.4 ML DISP.SYRIN SUBCUT SCH (10:15)
[2018-03-14] MEDS: LEVALBUTEROL HCL NEB 0.63 MG/3 ML AMPUL NEB PRN ×3 (14:18→22:41)
[2018-03-14] MEDS ORDERED: INSULIN LISPRO 100 UNIT/ML 3 ML VIAL SUBCUT ONE (16:00)
[2018-03-14] MEDS: ACETAMINOPHEN 325 MG TABLET PO PRN (16:34)
[2018-03-14] MEDS: CEFEPIME 1 GM/D5W RTU 1 GM/50 ML RTUPB IV SCH (18:13)
[2018-03-14] MEDS: LEVOFLOXACIN 750 MG/D5W RTU 750 MG/150 ML RTUPB IV SCH (21:03)
--- NOTE | 2018-03-14 22:09 | PDOC PROGRESS REPORT ---
Subjective Progress Note for:: 03/14/18 Subjective:: Patient is a 32-year-old morbidly obese [place] female presenting with worsening shortness of breath. She was recently discharged and was following up with her primary care today when she was evaluated and advised to come to the hospital. Initial chest x-ray on admission showed concerns for right middle or right lower lobe pneumonia. She did not was started on cefepime and levofloxacin for treatment of community- acquired pneumonia Patient was also started on nebulizer therapy, steroids and CPAP. He has been recently diagnosed with diabetes and is on metformin And NovoLog FlexPen for sliding scale bridge. Patient is stable has improved clinically is able to speak in complete sentences Denies any chest pain, reports shortness of breath. Reason For Visit: HCAP Physical Exam Vital Signs: Temp Pulse Resp BP Pulse Ox 98.8 F 107 H 16 124/74 97 03/14/18 19:25 03/14/18 19:25 03/14/18 19:25 03/14/18 19:25 03/14/18 19:25 Intake & Output 03/13/18 03/14/18 03/15/18 06:59 06:59 06:59 Intake Total 300 1322 Balance 300 1322 Weight 328 lb 0.765 oz General appearance: PRESENT: no acute distress, cooperative, morbidly obese Head exam: PRESENT: atraumatic, normocephalic Eye exam: PRESENT: EOMI Respiratory exam: PRESENT: wheezes Cardiovascular exam: PRESENT: RRR GI/Abdominal exam: PRESENT: soft. ABSENT: distended, tenderness Neurological exam: PRESENT: alert, awake Results Laboratory Results: 03/14/18 05:35 Lactic Acid 3.2 H Impressions: Chest X-Ray 03/13/18 20:28 IMPRESSION: Borderline cardiomegaly without CHF. Cannot exclude limited right middle lobe or lower lobe pneumonia. Assessment & Plan - Diagnosis (1) Diabetes mellitus type 2 in obese Is this a current diagnosis for this admission?: Yes (2) Pneumonia Qualifiers: Pneumonia type: due to unspecified organism Laterality: right Lung location: lower lobe of lung Qualified Code(s): J18.1 - Lobar pneumonia, unspecified organism Is this a current diagnosis for this admission?: Yes Plan: Continue current antibiotic therapy with supportive care. Provide as needed oxygen to keep saturations above 90%. Continue nebulizer therapy. Antitussives as needed antipyretics as needed. (3) GERD (gastroesophageal reflux disease) Qualifiers: Esophagitis presence: esophagitis presence not specified Qualified Code(s) : K21.9 - Gastro-esophageal reflux disease without esophagitis Is this a current diagnosis for this admission?: Yes Plan: Daily PPI therapy initiated today. (4) Hypertension Qualifiers: Hypertension type: essential hypertension Qualified Code(s): I10 - Essential (primary) hypertension Is this a current diagnosis for this admission?: Yes Plan: Hypertension suspect due to acute respiratory failure presentation with hypoxia and shortness of breath. Blood pressure is normal will follow. Will consider initiation of low-dose MARVIN inhibitor therapy for nephro protection and discharge. (5) Obstructive sleep apnea Is this a current diagnosis for this admission?: Yes Plan: Suspect patient has obstructs obstructive sleep apnea/pulmonary hypertension related to morbid obesity. Patient advised to obtain a sleep study on an outpatient basis. - Time Time Spent with patient: 15-24 minutes Anticipated discharge: Home Within: within 24 hours
[2018-03-15] MEDS: LEVALBUTEROL HCL NEB 0.63 MG/3 ML AMPUL NEB PRN ×5 (01:55→20:36)
[2018-03-15] MEDS: CEFEPIME 1 GM/D5W RTU 1 GM/50 ML RTUPB IV SCH ×2 (05:56→17:15)
[2018-03-15] MEDS: METHYLPREDNISOLONE INJ 40 MG/1 ML SDV IV SCH ×3 (05:56→21:26)
[2018-03-15 06:09] LABS: HEMATOCRIT 35.5 % (36.0-47.0); HEMOGLOBIN 11.5 g/dL (12.0-15.5); MEAN CORPUSCULAR HEMOGLOBIN 26.8 pg (27.0-33.4); MEAN CORPUSCULAR HGB CONC 32.4 g/dL (32.0-36.0); MEAN CORPUSCULAR VOLUME 83 fl (80-97); PLATELET COUNT 417 10^3/uL (150-450); RED BLOOD COUNT 4.29 10^6/uL (3.72-5.28); RED CELL DISTRIBUTION WIDTH 18.4 % (11.5-14.0); WHITE BLOOD COUNT 20.1 10^3/uL (4.0-10.5)
[2018-03-15 06:47] LABS: ANION GAP 14 (5-19); BLOOD UREA NITROGEN 18 mg/dL (7-20); CALCIUM 8.8 mg/dL (8.4-10.2); CARBON DIOXIDE 24 mmol/L (22-30); CHLORIDE 101 mmol/L (98-107); GLUCOSE 323 mg/dL (75-110); POTASSIUM 5.1 mmol/L (3.6-5.0); SODIUM 138.9 mmol/L (137-145)
[2018-03-15 07:15] LABS: ABSOLUTE LYMPHOCYTES# (MANUAL) 3.4 10^3/uL (0.5-4.7); ABSOLUTE MONOCYTES # (MANUAL) 0.6 10^3/uL (0.1-1.4); ABSOLUTE NEUTROPHILS# (MANUAL) 16.1 10^3/uL (1.7-8.2); BAND NEUTROPHILS % (MANUAL) 6 % (3-5); BASOPHILS % (MANUAL) 0 % (0-2); EOSINOPHILS % (MANUAL) 0 % (0-6); LYMPHOCYTES % (MANUAL) 15 % (13-45); MONOCYTES % (MANUAL) 3 % (3-13); PLATELET COMMENT INCREASED; SEGMENTED NEUTROPHILS % (MAN) 74 % (42-78); TOTAL CELLS COUNTED 100
[2018-03-15 07:17] LABS: ANISOCYTOSIS 2+; POIKILOCYTOSIS SLIGHT; STOMATOCYTES SLIGHT; TOXIC GRANULATION 2+
[2018-03-15] MEDS: INSULIN LISPRO 100 UNIT/ML 3 ML VIAL SUBCUT PRN ×4 (07:45→22:30)
[2018-03-15 09:25] LABS: HEMATOCRIT 36.7 % (36.0-47.0); HEMOGLOBIN 11.7 g/dL (12.0-15.5); MEAN CORPUSCULAR HEMOGLOBIN 26.4 pg (27.0-33.4); MEAN CORPUSCULAR HGB CONC 31.9 g/dL (32.0-36.0); MEAN CORPUSCULAR VOLUME 83 fl (80-97); PLATELET COUNT 483 10^3/uL (150-450); RED BLOOD COUNT 4.43 10^6/uL (3.72-5.28); WHITE BLOOD COUNT 20.6 10^3/uL (4.0-10.5)
[2018-03-15 09:47] LABS: ALANINE AMINOTRANSFERASE 53 U/L (9-52); ALBUMIN 3.9 g/dL (3.5-5.0); ALKALINE PHOSPHATASE 68 U/L (38-126); ANION GAP 14 (5-19); ASPARTATE AMINO TRANSFERASE 46 U/L (14-36); BILIRUBIN,DIRECT 0.4 mg/dL (0.0-0.4); BILIRUBIN,TOTAL 0.5 mg/dL (0.2-1.3); BLOOD UREA NITROGEN 18 mg/dL (7-20); CALCIUM 9.1 mg/dL (8.4-10.2); CARBON DIOXIDE 28 mmol/L (22-30); CHLORIDE 99 mmol/L (98-107); GLUCOSE 311 mg/dL (75-110); POTASSIUM 4.3 mmol/L (3.6-5.0); SODIUM 140.7 mmol/L (137-145); TOTAL PROTEIN 7.2 g/dL (6.3-8.2)
[2018-03-15] MEDS: PANTOPRAZOLE SODIUM 40 MG VIAL IV SCH (10:08)
[2018-03-15] MEDS: ENOXAPARIN SODIUM INJ 40 MG/0.4 ML DISP.SYRIN SUBCUT SCH (10:09)
[2018-03-15 10:12] LABS: ABSOLUTE LYMPHOCYTES# (MANUAL) 2.5 10^3/uL (0.5-4.7); ABSOLUTE MONOCYTES # (MANUAL) 0.8 10^3/uL (0.1-1.4); ABSOLUTE NEUTROPHILS# (MANUAL) 17.3 10^3/uL (1.7-8.2); ANISOCYTOSIS 2+; BAND NEUTROPHILS % (MANUAL) 1 % (3-5); BASOPHILS % (MANUAL) 0 % (0-2); EOSINOPHILS % (MANUAL) 0 % (0-6); HYPOCHROMASIA SLIGHT; LYMPHOCYTES % (MANUAL) 12 % (13-45); METAMYELOCYTES % (MANUAL) 1 % (0); MONOCYTES % (MANUAL) 4 % (3-13); PLATELET COMMENT ADEQUATE; POLYCHROMASIA SLIGHT; SEGMENTED NEUTROPHILS % (MAN) 82 % (42-78); TOTAL CELLS COUNTED 100; TOXIC GRANULATION 1+; TOXIC VACUOLATION PRESENT
[2018-03-15] MEDS: INSULIN GLARGINE,HUM.REC.ANLOG 300 UNIT/3 ML INSULN.PEN SUBCUT SCH (12:33)
[2018-03-15 12:46] LABS: ARTERIAL BLOOD BASE EXCESS 0.9 mmol/L; ARTERIAL BLOOD H2CO3 1.26 mmol/L (1.05-1.35); ARTERIAL BLOOD HCO3 25.7 mmol/L (20-26); ARTERIAL BLOOD O2 SATURATION 95.9 % (94-98); ARTERIAL BLOOD PCO2 41.7 mmHg (35-45); ARTERIAL BLOOD PH 7.41 (7.35-7.45); ARTERIAL BLOOD PO2 80.1 mmHg (80-100); ARTERIAL BLOOD TOTAL CO2 26.9 mmol/L (21-25)
[2018-03-15 12:48] LABS: ARTERIAL BLOOD FIO2 ROOM AIR
--- NOTE | 2018-03-15 20:15 | PDOC PROGRESS REPORT ---
Subjective Progress Note for:: 03/15/18 Subjective:: Patient is a 32-year-old morbidly obese Pol[place] female presenting with worsening shortness of breath. She was recently discharged and was following up with her primary care today when she was evaluated and advised to come to the hospital. Initial chest x-ray on admission showed concerns for right middle or right lower lobe pneumonia. She did not was started on cefepime and levofloxacin for treatment of community- acquired pneumonia Patient was also started on nebulizer therapy, steroids and CPAP. He has been recently diagnosed with diabetes and is on metformin And NovoLog FlexPen for sliding scale bridge. Patient is stable has improved clinically is able to speak in complete sentences Denies any chest pain, reports shortness of breath. 03/15/18 She is seen today for follow-up of her asthma exacerbation and pneumonia. Patient on CPAP today morning Denies any complaints today is resting in bed. [facility] Physical Exam Vital Signs: Temp Pulse Resp BP Pulse Ox 98.3 F 105 H 15 135/88 H 95 03/15/18 15:07 03/15/18 15:56 03/15/18 15:56 03/15/18 15:07 03/15/18 15:56 Intake & Output 03/14/18 03/15/18 03/16/18 06:59 06:59 06:59 Intake Total 300 2140 961 Balance 300 2140 961 Weight 332 lb 3.786 oz General appearance: PRESENT: no acute distress, cooperative Head exam: PRESENT: atraumatic, normocephalic Eye exam: PRESENT: EOMI Ear exam: PRESENT: normal external ear exam Respiratory exam: PRESENT: clear to auscultation rocky Cardiovascular exam: PRESENT: RRR GI/Abdominal exam: PRESENT: normal bowel sounds, soft. ABSENT: distended, guarding, tenderness Neurological exam: PRESENT: alert, awake, CN II-XII grossly intact Results Laboratory Results: 03/15/18 08:58 03/15/18 08:58 03/15/18 03/15/18 03/15/18 05:26 05:26 08:58 WBC 20.1 H 20.6 H RBC 4.29 4.43 Hgb 11.5 L 11.7 L Hct 35.5 L 36.7 MCV 83 83 MCH 26.8 L 26.4 L MCHC 32.4 31.9 L RDW 18.4 H 19.0 H Plt Count 417 483 H Seg Neutrophils % Not Reportable Not Reportable Lymphocytes % Not Reportable Not Reportable Monocytes % Not Reportable Not Reportable Eosinophils % Not Reportable Not Reportable Basophils % Not Reportable Not Reportable Absolute Neutrophils Not Reportable Not Reportable Absolute Lymphocytes Not Reportable Not Reportable Absolute Monocytes Not Reportable Not Reportable Absolute Eosinophils Not Reportable Not Reportable Absolute Basophils Not Reportable Not Reportable Carbonic Acid HCO3/H2CO3 Ratio ABG pH ABG pCO2 ABG pO2 ABG HCO3 ABG O2 Saturation ABG Base Excess FiO2 Sodium 138.9 Potassium 5.1 H Chloride 101 Carbon Dioxide 24 Anion Gap 14 BUN 18 Creatinine 0.57 Est GFR ( Amer) > 60 Est GFR (Non-Af Amer) > 60 Glucose 323 H Lactic Acid Calcium 8.8 Total Bilirubin AST ALT Alkaline Phosphatase Total Protein Albumin 03/15/18 03/15/18 03/15/18 08:58 08:58 12:30 WBC RBC Hgb Hct MCV MCH MCHC RDW Plt Count Seg Neutrophils % Lymphocytes % Monocytes % Eosinophils % Basophils % Absolute Neutrophils Absolute Lymphocytes Absolute Monocytes Absolute Eosinophils Absolute Basophils Carbonic Acid 1.26 HCO3/H2CO3 Ratio 20:1 ABG pH 7.41 ABG pCO2 41.7 ABG pO2 80.1 ABG HCO3 25.7 ABG O2 Saturation 95.9 ABG Base Excess 0.9 FiO2 ROOM AIR Sodium 140.7 Potassium 4.3 Chloride 99 Carbon Dioxide 28 Anion Gap 14 BUN 18 Creatinine 0.52 Est GFR ( Amer) > 60 Est GFR (Non-Af Amer) > 60 Glucose 311 H Lactic Acid 2.6 H Calcium 9.1 Total Bilirubin 0.5 AST 46 H ALT 53 H Alkaline Phosphatase 68 Total Protein 7.2 Albumin 3.9 Impressions: Chest X-Ray 03/13/18 20:28 IMPRESSION: Borderline cardiomegaly without CHF. Cannot exclude limited right middle lobe or lower lobe pneumonia. Assessment & Plan - Diagnosis (1) Pneumonia Qualifiers: Pneumonia type: due to unspecified organism Laterality: right Lung location: lower lobe of lung Qualified Code(s): J18.1 - Lobar pneumonia, unspecified organism Is this a current diagnosis for this admission?: Yes Plan: Continue current antibiotic therapy with supportive care. Provide as needed oxygen to keep saturations above 90%. Continue nebulizer therapy. Antitussives as needed antipyretics as needed. (2) Diabetes mellitus type 2 in obese Is this a current diagnosis for this admission?: Yes Plan: Patient has been diagnosed with diabetes. She was on metformin at home and was just started. We will hold patient's p.o. medications while the patient is in the hospital and start patient on long-acting insulin. (3) GERD (gastroesophageal reflux disease) Qualifiers: Esophagitis presence: esophagitis presence not specified Qualified Code(s) : K21.9 - Gastro-esophageal reflux disease without esophagitis Is this a current diagnosis for this admission?: Yes Plan: Daily PPI therapy initiated today. (4) Hypertension Qualifiers: Hypertension type: essential hypertension Qualified Code(s): I10 - Essential (primary) hypertension Is this a current diagnosis for this admission?: Yes Plan: Hypertension suspect due to acute respiratory failure presentation with hypoxia and shortness of breath. Blood pressure is normal will follow. Will consider initiation of low-dose MARVIN inhibitor therapy for nephro protection and discharge. (5) Obstructive sleep apnea Is this a current diagnosis for this admission?: Yes Plan: Suspect patient has obstructs obstructive sleep apnea/pulmonary hypertension related to morbid obesity. Patient advised to obtain a sleep study on an outpatient basis. - Time Time Spent with patient: Less than 15 minutes - Inpatient Certification Based on my medical assessment, after consideration of the patient's comorbidities, presenting symptoms, or acuity I expect that the services needed warrant INPATIENT care.: Yes I certify that my determination is in accordance with my understanding of Medicare's requirements for reasonable and necessary INPATIENT services [42 CFR 412.3e].: Yes Medical Necessity: Need for Nebulizer Therapy and Monitoring of Response, Need for IV Antibiotics
[2018-03-15] MEDS: LEVOFLOXACIN 750 MG/D5W RTU 750 MG/150 ML RTUPB IV SCH (21:25)
[2018-03-16] MEDS: LEVALBUTEROL HCL NEB 0.63 MG/3 ML AMPUL NEB PRN ×5 (00:31→20:03)
[2018-03-16] MEDS ORDERED: VANCOMYCIN HCL INJ 1000 MG VIAL IV PRN (00:37)
[2018-03-16] MEDS ORDERED: VANCOMYCIN HCL 1,750 MG in DEXTROSE 5%-WATER 500 ML IV ONE (00:45)
[2018-03-16] MEDS: CEFEPIME 1 GM/D5W RTU 1 GM/50 ML RTUPB IV SCH ×2 (08:00→17:17)
[2018-03-16] MEDS: METHYLPREDNISOLONE INJ 40 MG/1 ML SDV IV SCH ×3 (08:01→22:46)
[2018-03-16] MEDS: INSULIN LISPRO 100 UNIT/ML 3 ML VIAL SUBCUT PRN ×3 (09:29→17:17)
[2018-03-16] MEDS: ENOXAPARIN SODIUM INJ 40 MG/0.4 ML DISP.SYRIN SUBCUT SCH (09:30)
[2018-03-16] MEDS: PANTOPRAZOLE SODIUM 40 MG VIAL IV SCH (09:30)
[2018-03-16] MEDS: INSULIN GLARGINE,HUM.REC.ANLOG 300 UNIT/3 ML INSULN.PEN SUBCUT SCH (09:31)
[2018-03-16] MEDS: ACETAMINOPHEN 325 MG TABLET PO PRN (17:19)
--- NOTE | 2018-03-16 17:55 | PDOC PROGRESS REPORT ---
Subjective Progress Note for:: 03/16/18 Subjective:: Patient is a 32-year-old morbidly obese [place] female presenting with worsening shortness of breath. She was recently discharged and was following up with her primary care today when she was evaluated and advised to come to the hospital. Initial chest x-ray on admission showed concerns for right middle or right lower lobe pneumonia. She did not was started on cefepime and levofloxacin for treatment of community- acquired pneumonia Patient was also started on nebulizer therapy, steroids and CPAP. He has been recently diagnosed with diabetes and is on metformin And NovoLog FlexPen for sliding scale bridge. Patient is stable has improved clinically is able to speak in complete sentences Denies any chest pain, reports shortness of breath. 03/15/18 She is seen today for follow-up of her asthma exacerbation and pneumonia. Patient on CPAP today morning Denies any complaints today is resting in bed. 03/16/18 Patient seen today for follow-up of asthma exacerbation, with a questionable pneumonia on the right middle lobe on chest x-ray. We will repeat chest x-ray today. Found to have 1 blood culture positive for gram-positive cocci culture sensitivity pending. Suspect this is a contaminant. 1C/S available we will discontinue vancomycin and cefepime. We will continue levofloxacin Patient is alert and oriented afebrile denies any chest pain shortness of breath. Received report from nurse at 5:42 PM patient having a headache. Blood pressure has been recorded to be diastolic of 90 with systolic of 150 however suspect erroneous measurement as patient is morbidly obese will repeat manual blood pressure. Patient will be started on low-dose MARVIN inhibitor for nephro protection. Medically patient is improving and feeling better. Do not suspect bacteremia or sepsis. Attribute leukocytosis and elevated neutrophil count due to steroids. Reason For Visit: HCAP Physical Exam Vital Signs: Temp Pulse Resp BP Pulse Ox 98.9 F 102 H 22 H 153/93 H 97 03/16/18 16:47 03/16/18 16:47 03/16/18 16:47 03/16/18 16:47 03/16/18 16:47 Intake & Output 03/15/18 03/16/18 03/17/18 06:59 06:59 06:59 Intake Total 2140 2120 508 Balance 2140 2120 508 Weight 332 lb 3.786 oz 335 lb 8.697 oz General appearance: PRESENT: no acute distress, cooperative, morbidly obese Head exam: PRESENT: atraumatic, normocephalic Eye exam: PRESENT: EOMI Respiratory exam: PRESENT: clear to auscultation rocky - Scattered rhonchi and wheezing posteriorly. Improved air movement compared to yesterday Cardiovascular exam: PRESENT: RRR GI/Abdominal exam: PRESENT: normal bowel sounds, soft. ABSENT: guarding, tenderness Neurological exam: PRESENT: alert, awake, oriented to time, CN II-XII grossly intact Psychiatric exam: PRESENT: appropriate affect Results Laboratory Results: 03/15/18 08:58 03/15/18 08:58 Impressions: Chest X-Ray 03/13/18 20:28 IMPRESSION: Borderline cardiomegaly without CHF. Cannot exclude limited right middle lobe or lower lobe pneumonia. Assessment & Plan - Diagnosis (1) Pneumonia Qualifiers: Pneumonia type: due to unspecified organism Laterality: right Lung location: lower lobe of lung Qualified Code(s): J18.1 - Lobar pneumonia, unspecified organism Is this a current diagnosis for this admission?: Yes Plan: Patient started on vancomycin and cefepime Patient also continued on levofloxacin. Once culture and sensitivity are available we will discontinue the antibiotics (2) Diabetes mellitus type 2 in obese Is this a current diagnosis for this admission?: Yes Plan: Patient has been diagnosed with diabetes. She was on metformin at home and was just started. We will hold patient's p.o. medications while the patient is in the hospital and start patient on long-acting insulin. (3) GERD (gastroesophageal reflux disease) Qualifiers: Esophagitis presence: esophagitis presence not specified Qualified Code(s) : K21.9 - Gastro-esophageal reflux disease without esophagitis Is this a current diagnosis for this admission?: Yes Plan: Daily PPI therapy initiated today. (4) Hypertension Qualifiers: Hypertension type: essential hypertension Qualified Code(s): I10 - Essential (primary) hypertension Is this a current diagnosis for this admission?: Yes Plan: Hypertension suspect due to acute respiratory failure presentation with hypoxia and shortness of breath. Blood pressure is normal will follow. Will consider initiation of low-dose MARVIN inhibitor therapy for nephro protection and discharge. (5) Obstructive sleep apnea Is this a current diagnosis for this admission?: Yes Plan: Suspect patient has obstructs obstructive sleep apnea/pulmonary hypertension related to morbid obesity. Patient advised to obtain a sleep study on an outpatient basis. - Time Time Spent with patient: Less than 15 minutes Anticipated discharge: Home - Inpatient Certification Based on my medical assessment, after consideration of the patient's comorbidities, presenting symptoms, or acuity I expect that the services needed warrant INPATIENT care.: Yes I certify that my determination is in accordance with my understanding of Medicare's requirements for reasonable and necessary INPATIENT services [42 CFR 412.3e].: Yes Medical Necessity: Need for Nebulizer Therapy and Monitoring of Response
[2018-03-16] MEDS ORDERED: LISINOPRIL 5 MG TABLET PO ONE (18:15)
[2018-03-16 18:29] LABS: HEMATOCRIT 36.4 % (36.0-47.0); HEMOGLOBIN 11.7 g/dL (12.0-15.5); MEAN CORPUSCULAR HEMOGLOBIN 26.6 pg (27.0-33.4); MEAN CORPUSCULAR HGB CONC 32.2 g/dL (32.0-36.0); MEAN CORPUSCULAR VOLUME 83 fl (80-97); PLATELET COUNT 428 10^3/uL (150-450); RED BLOOD COUNT 4.39 10^6/uL (3.72-5.28); RED CELL DISTRIBUTION WIDTH 18.8 % (11.5-14.0); WHITE BLOOD COUNT 18.2 10^3/uL (4.0-10.5)
[2018-03-16 18:33] LABS: ALANINE AMINOTRANSFERASE 57 U/L (9-52); ALBUMIN 3.4 g/dL (3.5-5.0); ALKALINE PHOSPHATASE 71 U/L (38-126); ANION GAP 10 (5-19); ASPARTATE AMINO TRANSFERASE 85 U/L (14-36); BILIRUBIN,DIRECT 0.2 mg/dL (0.0-0.4); BILIRUBIN,TOTAL 0.2 mg/dL (0.2-1.3); BLOOD UREA NITROGEN 23 mg/dL (7-20); CALCIUM 8.9 mg/dL (8.4-10.2); CARBON DIOXIDE 24 mmol/L (22-30); CHLORIDE 104 mmol/L (98-107); GLUCOSE 295 mg/dL (75-110); PHOSPHORUS 2.2 mg/dL (2.5-4.5); POTASSIUM 5.2 mmol/L (3.6-5.0); TOTAL PROTEIN 6.5 g/dL (6.3-8.2)
[2018-03-16 18:49] LABS: ABSOLUTE LYMPHOCYTES# (MANUAL) 2.9 10^3/uL (0.5-4.7); ABSOLUTE MONOCYTES # (MANUAL) 0.5 10^3/uL (0.1-1.4); ABSOLUTE NEUTROPHILS# (MANUAL) 14.7 10^3/uL (1.7-8.2); BASOPHILS % (MANUAL) 0 % (0-2); EOSINOPHILS % (MANUAL) 0 % (0-6); LYMPHOCYTES % (MANUAL) 16 % (13-45); MONOCYTES % (MANUAL) 3 % (3-13); SEGMENTED NEUTROPHILS % (MAN) 81 % (42-78); TOTAL CELLS COUNTED 100
[2018-03-16 18:50] LABS: ANISOCYTOSIS 2+; HYPOCHROMASIA SLIGHT; PLATELET COMMENT ADEQUATE; TOXIC GRANULATION 1+; TOXIC VACUOLATION PRESENT
[2018-03-16] MEDS ORDERED: HYDRALAZINE HCL INJ/PF 20 MG/1 ML SDV ONE (19:10)
[2018-03-16] MEDS: VANCOMYCIN HCL 1,250 MG in DEXTROSE 5%-WATER 250 ML IV SCH (19:15)
[2018-03-16] MEDS ORDERED: HYDRALAZINE HCL INJ/PF 20 MG/1 ML SDV IV ONE (19:30)
[2018-03-16] MEDS ORDERED: LISINOPRIL 10 MG TABLET PO SCH (22:00)
[2018-03-16] MEDS: LEVOFLOXACIN 750 MG/D5W RTU 750 MG/150 ML RTUPB IV SCH (22:56)
[2018-03-17] MEDS: INSULIN LISPRO 100 UNIT/ML 3 ML VIAL SUBCUT PRN ×5 (00:15→22:59)
[2018-03-17] MEDS: LEVALBUTEROL HCL NEB 0.63 MG/3 ML AMPUL NEB PRN ×5 (00:44→21:18)
[2018-03-17] MEDS: VANCOMYCIN HCL 1,250 MG in DEXTROSE 5%-WATER 250 ML IV SCH (02:50)
[2018-03-17] MEDS: CEFEPIME 1 GM/D5W RTU 1 GM/50 ML RTUPB IV SCH (06:00)
[2018-03-17] MEDS: METHYLPREDNISOLONE INJ 40 MG/1 ML SDV IV SCH ×3 (06:01→22:59)
[2018-03-17] MEDS ORDERED: HYDRALAZINE HCL INJ/PF 20 MG/1 ML SDV IV PRN (09:18)
[2018-03-17] MEDS: PANTOPRAZOLE SODIUM 40 MG VIAL IV SCH (09:57)
[2018-03-17] MEDS: LISINOPRIL 10 MG TABLET PO SCH ×2 (09:57→22:59)
[2018-03-17] MEDS: AMLODIPINE BESYLATE 5 MG TABLET PO SCH (09:57)
[2018-03-17] MEDS: INSULIN GLARGINE,HUM.REC.ANLOG 300 UNIT/3 ML INSULN.PEN SUBCUT SCH (09:58)
[2018-03-17] MEDS: ENOXAPARIN SODIUM INJ 40 MG/0.4 ML DISP.SYRIN SUBCUT SCH (09:58)
[2018-03-17] MEDS ORDERED: LISINOPRIL 5 MG TABLET PO SCH (10:00)
[2018-03-17] MEDS ORDERED: NITROGLYCERIN 0.4 MG/TAB 25 TAB/BOTTLE SL PRN (11:13)
[2018-03-17 12:19] LABS: CREATINE KINASE MB 0.75 ng/mL (<4.55)
[2018-03-17 12:23] LABS: TROPONIN I < 0.012 ng/mL
--- NOTE | 2018-03-17 17:26 | EKG REPORT ---
SEVERITY:- ABNORMAL ECG - SINUS RHYTHM PROBABLE LEFT ATRIAL ABNORMALITY PROBABLE LEFT VENTRICULAR HYPERTROPHY : Confirmed by: Analisa Olivera MD 17-Mar-2018 17:25:55
[2018-03-17 18:30] LABS: HEMATOCRIT 37.7 % (36.0-47.0); MEAN CORPUSCULAR HEMOGLOBIN 26.4 pg (27.0-33.4); MEAN CORPUSCULAR HGB CONC 31.7 g/dL (32.0-36.0); MEAN CORPUSCULAR VOLUME 83 fl (80-97); PLATELET COUNT 451 10^3/uL (150-450); RED BLOOD COUNT 4.53 10^6/uL (3.72-5.28); RED CELL DISTRIBUTION WIDTH 19.1 % (11.5-14.0); WHITE BLOOD COUNT 19.8 10^3/uL (4.0-10.5)
[2018-03-17 18:31] LABS: ALANINE AMINOTRANSFERASE 47 U/L (9-52); ALBUMIN 3.5 g/dL (3.5-5.0); ALKALINE PHOSPHATASE 70 U/L (38-126); ANION GAP 12 (5-19); ASPARTATE AMINO TRANSFERASE 62 U/L (14-36); BILIRUBIN,DIRECT 0.2 mg/dL (0.0-0.4); BILIRUBIN,TOTAL 0.2 mg/dL (0.2-1.3); BLOOD UREA NITROGEN 24 mg/dL (7-20); CARBON DIOXIDE 25 mmol/L (22-30); CHLORIDE 102 mmol/L (98-107); CREATINE KINASE 52 U/L (30-135); GLUCOSE 253 mg/dL (75-110); PHOSPHORUS 1.8 mg/dL (2.5-4.5); POTASSIUM 3.9 mmol/L (3.6-5.0); SODIUM 138.9 mmol/L (137-145); TOTAL PROTEIN 6.8 g/dL (6.3-8.2)
[2018-03-17 18:41] LABS: CREATINE KINASE MB 0.83 ng/mL (<4.55); VANCOMYCIN,TROUGH < 5.0 ug/mL (5.0-20.0)
[2018-03-17 18:46] LABS: TROPONIN I < 0.012 ng/mL
--- NOTE | 2018-03-17 21:54 | PDOC PROGRESS REPORT ---
Subjective Progress Note for:: 03/17/18 Subjective:: Patient is a 32-year-old morbidly obese [place] female presenting with worsening shortness of breath. She was recently discharged and was following up with her primary care today when she was evaluated and advised to come to the hospital. Initial chest x-ray on admission showed concerns for right middle or right lower lobe pneumonia. She did not was started on cefepime and levofloxacin for treatment of community- acquired pneumonia Patient was also started on nebulizer therapy, steroids and CPAP. He has been recently diagnosed with diabetes and is on metformin And NovoLog FlexPen for sliding scale bridge. Patient is stable has improved clinically is able to speak in complete sentences Denies any chest pain, reports shortness of breath. 03/15/18 She is seen today for follow-up of her asthma exacerbation and pneumonia. Patient on CPAP today morning Denies any complaints today is resting in bed. 03/16/18 Patient seen today for follow-up of asthma exacerbation, with a questionable pneumonia on the right middle lobe on chest x-ray. We will repeat chest x-ray today. Found to have 1 blood culture positive for gram-positive cocci culture sensitivity pending. Suspect this is a contaminant. 1C/S available we will discontinue vancomycin and cefepime. We will continue levofloxacin Patient is alert and oriented afebrile denies any chest pain shortness of breath. Received report from nurse at 5:42 PM patient having a headache. Blood pressure has been recorded to be diastolic of 90 with systolic of 150 however suspect erroneous measurement as patient is morbidly obese will repeat manual blood pressure. Patient will be started on low-dose MARVIN inhibitor for nephro protection. Medically patient is improving and feeling better. Do not suspect bacteremia or sepsis. Attribute leukocytosis and elevated neutrophil count due to steroids. Reason For Visit: [facility] Physical Exam Vital Signs: Temp Pulse Resp BP Pulse Ox 98.5 F 108 H 18 150/97 H 94 03/17/18 19:39 03/17/18 19:39 03/17/18 19:39 03/17/18 19:39 03/17/18 19:39 Intake & Output 03/16/18 03/17/18 03/18/18 06:59 06:59 06:59 Intake Total 2270 2176 542 Balance 2270 2176 542 Weight 335 lb 8.697 oz 336 lb 3.279 oz General appearance: PRESENT: no acute distress, cooperative, morbidly obese Head exam: PRESENT: atraumatic, normocephalic Eye exam: PRESENT: EOMI Respiratory exam: PRESENT: clear to auscultation rocky Cardiovascular exam: PRESENT: RRR GI/Abdominal exam: PRESENT: normal bowel sounds, soft. ABSENT: tenderness Results Laboratory Results: 03/17/18 11:30 03/17/18 17:30 03/17/18 03/17/18 11:30 17:30 WBC 19.8 H RBC 4.53 Hgb 12.0 Hct 37.7 MCV 83 MCH 26.4 L MCHC 31.7 L RDW 19.1 H Plt Count 451 H Sodium 138.9 Potassium 3.9 Chloride 102 Carbon Dioxide 25 Anion Gap 12 BUN 24 H Creatinine 0.54 Est GFR ( Amer) > 60 Est GFR (Non-Af Amer) > 60 Glucose 253 H Calcium 9.0 Phosphorus 1.8 L Magnesium 1.8 Total Bilirubin 0.2 AST 62 H ALT 47 Alkaline Phosphatase 70 Total Protein 6.8 Albumin 3.5 03/17/18 03/17/18 03/17/18 11:30 11:30 17:30 Creatine Kinase 45 52 CK-MB (CK-2) 0.75 Troponin I < 0.012 03/17/18 17:30 Creatine Kinase CK-MB (CK-2) 0.83 Troponin I < 0.012 Impressions: Chest X-Ray 03/13/18 20:28 IMPRESSION: Borderline cardiomegaly without CHF. Cannot exclude limited right middle lobe or lower lobe pneumonia. Assessment & Plan - Diagnosis (1) Pneumonia Qualifiers: Pneumonia type: due to unspecified organism Laterality: right Lung location: lower lobe of lung Qualified Code(s): J18.1 - Lobar pneumonia, unspecified organism Is this a current diagnosis for this admission?: Yes Plan: Patient started on vancomycin and cefepime Patient also continued on levofloxacin. Once culture and sensitivity are available we will discontinue the antibiotics (2) Diabetes mellitus type 2 in obese Is this a current diagnosis for this admission?: Yes Plan: Patient has been diagnosed with diabetes. She was on metformin at home and was just started. We will hold patient's p.o. medications while the patient is in the hospital and start patient on long-acting insulin. (3) GERD (gastroesophageal reflux disease) Qualifiers: Esophagitis presence: esophagitis presence not specified Qualified Code(s) : K21.9 - Gastro-esophageal reflux disease without esophagitis Is this a current diagnosis for this admission?: Yes (4) Hypertension Qualifiers: Hypertension type: essential hypertension Qualified Code(s): I10 - Essential (primary) hypertension Is this a current diagnosis for this admission?: Yes Plan: Hypertension suspect due to acute respiratory failure presentation with hypoxia and shortness of breath. Blood pressure is normal will follow. Will consider initiation of low-dose MARVIN inhibitor therapy for nephro protection and discharge. (5) Obstructive sleep apnea Is this a current diagnosis for this admission?: Yes Plan: Suspect patient has obstructs obstructive sleep apnea/pulmonary hypertension related to morbid obesity. Patient advised to obtain a sleep study on an outpatient basis.
[2018-03-17] MEDS: LEVOFLOXACIN 750 MG/D5W RTU 750 MG/150 ML RTUPB IV SCH (22:59)
--- NOTE | 2018-03-17 23:07 | EKG REPORT ---
SEVERITY:- ABNORMAL ECG - SINUS TACHYCARDIA CONSIDER LEFT VENTRICULAR HYPERTROPHY : Confirmed by: Analisa Olivera MD 17-Mar-2018 23:06:35
[2018-03-18] MEDS: LEVALBUTEROL HCL NEB 0.63 MG/3 ML AMPUL NEB PRN ×6 (04:26→23:41)
[2018-03-18 05:47] LABS: CREATINE KINASE MB 0.95 ng/mL (<4.55)
[2018-03-18 05:50] LABS: TROPONIN I < 0.012 ng/mL
[2018-03-18] MEDS: METHYLPREDNISOLONE INJ 40 MG/1 ML SDV IV SCH ×3 (05:59→22:02)
--- NOTE | 2018-03-18 07:34 | EKG REPORT ---
SEVERITY:- ABNORMAL ECG - SINUS RHYTHM ABNORMAL T, CONSIDER ISCHEMIA, INFERIOR LEADS NO CHANGE FROM 03/17/18 EKG. : Confirmed by: Stuart Landon MD 18-Mar-2018 07:33:50
[2018-03-18] MEDS: INSULIN LISPRO 100 UNIT/ML 3 ML VIAL SUBCUT PRN ×4 (09:26→22:10)
[2018-03-18] MEDS: ENOXAPARIN SODIUM INJ 40 MG/0.4 ML DISP.SYRIN SUBCUT SCH (11:47)
[2018-03-18] MEDS: INSULIN GLARGINE,HUM.REC.ANLOG 300 UNIT/3 ML INSULN.PEN SUBCUT SCH (11:48)
[2018-03-18] MEDS: PANTOPRAZOLE SODIUM 40 MG VIAL IV SCH (11:48)
[2018-03-18] MEDS: AMLODIPINE BESYLATE 5 MG TABLET PO SCH (11:48)
[2018-03-18] MEDS: LISINOPRIL 10 MG TABLET PO SCH ×2 (11:49→22:01)
[2018-03-18] MEDS ORDERED: REGADENOSON INJ 0.4 MG/5 ML DISP.SYRIN IV ONE (13:52)
[2018-03-18 16:46] LABS: MEAN CORPUSCULAR HEMOGLOBIN 26.6 pg (27.0-33.4); MEAN CORPUSCULAR HGB CONC 32.4 g/dL (32.0-36.0); MEAN CORPUSCULAR VOLUME 82 fl (80-97); PLATELET COUNT 407 10^3/uL (150-450); RED CELL DISTRIBUTION WIDTH 19.1 % (11.5-14.0); WHITE BLOOD COUNT 23.2 10^3/uL (4.0-10.5)
--- NOTE | 2018-03-18 17:37 | RADIOLOGY REPORT (SQ) ---
EXAM DESCRIPTION: CHEST SINGLE VIEW COMPLETED DATE/TIME: 03/18/2018 5:19 pm REASON FOR STUDY: asthma exacerbation COMPARISON: 03/13/2018 EXAM PARAMETERS: NUMBER OF VIEWS: One view. TECHNIQUE: Single frontal radiographic view of the chest acquired. RADIATION DOSE: NA LIMITATIONS: None. FINDINGS: LUNGS AND PLEURA: No opacities, masses or pneumothorax. No pleural effusion. MEDIASTINUM AND HILAR STRUCTURES: No masses. Contour normal. HEART AND VASCULAR STRUCTURES: Heart size is borderline. No pulmonary edema. BONES: No acute findings. HARDWARE: None in the chest. OTHER: No other significant finding. IMPRESSION: Borderline heart size with no pulmonary edema. TECHNICAL DOCUMENTATION: JOB ID: [id number] [employer]- All Rights Reserved Reading location - IP/workstation name: [email or web address]
[2018-03-18] MEDS ORDERED: CETIRIZINE 10 MG TABLET PO ONE (21:04)
[2018-03-18] MEDS: LEVOFLOXACIN 750 MG/D5W RTU 750 MG/150 ML RTUPB IV SCH (22:02)
[2018-03-18] MEDS ORDERED: NITROGLYCERIN 0.4 MG/TAB 25 TAB/BOTTLE SL PRN (23:36)
[2018-03-19] MEDS: LEVALBUTEROL HCL NEB 0.63 MG/3 ML AMPUL NEB PRN ×5 (04:13→20:27)
[2018-03-19] MEDS: METHYLPREDNISOLONE INJ 40 MG/1 ML SDV IV SCH (05:41)
[2018-03-19 06:36] LABS: HEMATOCRIT 37.2 % (36.0-47.0); MEAN CORPUSCULAR HEMOGLOBIN 26.8 pg (27.0-33.4); MEAN CORPUSCULAR HGB CONC 32.4 g/dL (32.0-36.0); MEAN CORPUSCULAR VOLUME 83 fl (80-97); PLATELET COUNT 422 10^3/uL (150-450); RED CELL DISTRIBUTION WIDTH 18.8 % (11.5-14.0); WHITE BLOOD COUNT 21.1 10^3/uL (4.0-10.5)
[2018-03-19 06:54] LABS: ALANINE AMINOTRANSFERASE 63 U/L (9-52); ALBUMIN 3.4 g/dL (3.5-5.0); ALKALINE PHOSPHATASE 58 U/L (38-126); ANION GAP 11 (5-19); ASPARTATE AMINO TRANSFERASE 62 U/L (14-36); BILIRUBIN,DIRECT 0.3 mg/dL (0.0-0.4); BILIRUBIN,TOTAL 0.4 mg/dL (0.2-1.3); BLOOD UREA NITROGEN 22 mg/dL (7-20); CALCIUM 9.4 mg/dL (8.4-10.2); CARBON DIOXIDE 27 mmol/L (22-30); CHLORIDE 102 mmol/L (98-107); GLUCOSE 255 mg/dL (75-110); PHOSPHORUS 4.2 mg/dL (2.5-4.5); POTASSIUM 5.3 mmol/L (3.6-5.0); SODIUM 140.2 mmol/L (137-145); TOTAL PROTEIN 6.3 g/dL (6.3-8.2)
[2018-03-19 08:00] LABS: ABSOLUTE LYMPHOCYTES# (MANUAL) 2.5 10^3/uL (0.5-4.7); ABSOLUTE NEUTROPHILS# (MANUAL) 18.4 10^3/uL (1.7-8.2); BAND NEUTROPHILS % (MANUAL) 2 % (3-5); BASOPHILS % (MANUAL) 0 % (0-2); EOSINOPHILS % (MANUAL) 1 % (0-6); LYMPHOCYTES % (MANUAL) 11 % (13-45); METAMYELOCYTES % (MANUAL) 1 % (0); MONOCYTES % (MANUAL) 0 % (3-13); SEGMENTED NEUTROPHILS % (MAN) 84 % (42-78); TOTAL CELLS COUNTED 100
[2018-03-19 08:01] LABS: HYPOCHROMASIA SLIGHT; PLATELET COMMENT ADEQUATE; POLYCHROMASIA SLIGHT; TOXIC GRANULATION SLIGHT; TOXIC VACUOLATION PRESENT
[2018-03-19] MEDS: LISINOPRIL 10 MG TABLET PO SCH ×2 (10:17→21:41)
[2018-03-19] MEDS: ACETAMINOPHEN 325 MG TABLET PO PRN (10:17)
[2018-03-19] MEDS: AMLODIPINE BESYLATE 5 MG TABLET PO SCH (10:17)
[2018-03-19] MEDS: INSULIN GLARGINE,HUM.REC.ANLOG 300 UNIT/3 ML INSULN.PEN SUBCUT SCH (10:18)
[2018-03-19] MEDS: PREDNISONE 20 MG TABLET PO SCH (10:18)
[2018-03-19] MEDS: ENOXAPARIN SODIUM INJ 40 MG/0.4 ML DISP.SYRIN SUBCUT SCH (10:19)
[2018-03-19] MEDS: METFORMIN HCL 500 MG TABLET PO SCH ×2 (10:23→16:18)
[2018-03-19] MEDS: PANTOPRAZOLE SODIUM 40 MG VIAL IV SCH (11:07)
[2018-03-19] MEDS: INSULIN LISPRO 100 UNIT/ML 3 ML VIAL SUBCUT PRN ×3 (14:59→21:44)
--- NOTE | 2018-03-19 19:20 | PDOC PROGRESS REPORT ---
Subjective Progress Note for:: 03/19/18 Subjective:: The patient is resting in her bed. She has lost her IV access this afternoon and she is quite nervous that she may require some parenteral therapies over the next 24 hours. I had already changed her over to p.o. prednisone today and I have encouraged her to leave the IV out. I do not believe she is going to get into trouble overnight. Overall she is still requiring oxygen therapy. She was not oxygen dependent prior to this hospitalization. We discussed the pros and cons about going home with oxygen. She needs a sleep study and would benefit from BiPAP or CPAP at night. Apparently efforts during her previous hospitalization were underway to try to get her machine but she was going to require a sleep study first. She went home with nothing and travel to [place] and then had another exacerbation prompting this hospitalization. I am consulting Dr. Jacques from the pulmonology service to see if he could assist with getting her machine in the short-term. Also I believe she is going to need pulmonology management of her asthma and respiratory issues. She denies fever chills. No chest pain, she increased shortness of breath or cough. She states her wheezing has resolved. She states she does get short of breath when she ambulates. She still requiring oxygen therapy. She said no nausea vomiting or diarrhea. No urinary complaints. Reason For Visit: [facility] Physical Exam Vital Signs: Temp Pulse Resp BP Pulse Ox 98.7 F 68 18 149/72 H 97 03/19/18 15:44 03/19/18 16:25 03/19/18 16:25 03/19/18 15:44 03/19/18 16:25 Intake & Output 03/18/18 03/19/18 03/20/18 06:59 06:59 06:59 Intake Total 1235 472 592 Balance 1235 472 592 Weight 154.3 kg 154.6 kg 154.6 kg General appearance: PRESENT: no acute distress, morbidly obese, well-developed, well-nourished Head exam: PRESENT: atraumatic, normocephalic Mouth exam: PRESENT: moist, tongue midline Respiratory exam: PRESENT: clear to auscultation rocky, decreased breath sounds - She is diminished in the lower bases bilaterally. ABSENT: rales, rhonchi, wheezes Cardiovascular exam: PRESENT: RRR. ABSENT: diastolic murmur, rubs, systolic murmur GI/Abdominal exam: PRESENT: normal bowel sounds, soft. ABSENT: distended, guarding, mass, organolmegaly, rebound, tenderness Rectal exam: PRESENT: deferred Extremities exam: PRESENT: full ROM, pedal edema. ABSENT: calf tenderness, clubbing Musculoskeletal exam: PRESENT: ambulatory Neurological exam: PRESENT: alert, awake, oriented to person, oriented to place , oriented to time, oriented to situation, CN II-XII grossly intact. ABSENT: motor sensory deficit Psychiatric exam: PRESENT: appropriate affect, normal mood. ABSENT: homicidal ideation, suicidal ideation Skin exam: PRESENT: dry, intact, warm. ABSENT: cyanosis, rash Results Laboratory Results: 03/19/18 05:39 03/19/18 05:39 03/19/18 03/19/18 03/19/18 05:39 05:39 11:10 WBC 21.1 H RBC 4.50 Hgb 12.0 Hct 37.2 MCV 83 MCH 26.8 L MCHC 32.4 RDW 18.8 H Plt Count 422 Seg Neutrophils % Not Reportable Lymphocytes % Not Reportable Monocytes % Not Reportable Eosinophils % Not Reportable Basophils % Not Reportable Absolute Neutrophils Not Reportable Absolute Lymphocytes Not Reportable Absolute Monocytes Not Reportable Absolute Eosinophils Not Reportable Absolute Basophils Not Reportable Sodium 140.2 Potassium 5.3 H Chloride 102 Carbon Dioxide 27 Anion Gap 11 BUN 22 H Creatinine 0.57 Est GFR ( Amer) > 60 Est GFR (Non-Af Amer) > 60 Glucose 255 H Calcium 9.4 Phosphorus 4.2 4.1 Magnesium 2.0 Total Bilirubin 0.4 AST 62 H ALT 63 H Alkaline Phosphatase 58 Total Protein 6.3 Albumin 3.4 L 03/13/18 23:59 Blood Blood Culture - Final NO GROWTH IN 5 DAYS 03/17/18 03/17/18 03/17/18 11:30 11:30 17:30 Creatine Kinase 45 52 CK-MB (CK-2) 0.75 Troponin I < 0.012 NT-Pro-B Natriuret Pep 03/17/18 03/18/18 03/18/18 17:30 03:40 03:40 Creatine Kinase 48 CK-MB (CK-2) 0.83 0.95 Troponin I < 0.012 < 0.012 NT-Pro-B Natriuret Pep 03/18/18 03/19/18 17:30 05:39 Creatine Kinase CK-MB (CK-2) Troponin I NT-Pro-B Natriuret Pep 434 H 223 H Impressions: Chest X-Ray 03/18/18 00:00 IMPRESSION: Borderline heart size with no pulmonary edema. Assessment & Plan - Diagnosis (1) Acute respiratory failure with hypoxia Is this a current diagnosis for this admission?: Yes Plan: The patient is borderline hypoxic. Her respiratory failure is multifactorial secondary to pneumonia and underlying asthma exacerbation. There likely is an element of obesity hypoventilation syndrome as well. We will going to have pulmonology see the patient. Nursing staff is going to try to wean her off of the oxygen but she may require home oxygen therapy at discharge. (2) Pneumonia Is this a current diagnosis for this admission?: Yes Plan: She was initially treated with broad-spectrum antibiotics to cover gram negatives and MRSA due to her recent hospitalization. Her antibiotics have been de-escalated to Levaquin at this point. She is clearly improving. (3) Asthma exacerbation Qualifiers: Asthma severity: unspecified severity Asthma persistence: persistent Qualified Code(s): J45.901 - Unspecified asthma with (acute) exacerbation Is this a current diagnosis for this admission?: Yes Plan: I am going to stop her IV Solu-Medrol and transition her over to p.o. prednisone today. (4) Obesity hypoventilation syndrome Is this a current diagnosis for this admission?: Yes Plan: She likely has underlying sleep apnea. We are going to get pulmonology to see the patient. (5) Morbid obesity Is this a current diagnosis for this admission?: Yes Plan: She has a BMI over 70. We discussed different weight loss strategies. She is quite anxious to work on this. (6) Hypertension Is this a current diagnosis for this admission?: Yes Plan: Stable (7) GERD (gastroesophageal reflux disease) Is this a current diagnosis for this admission?: Yes Plan: Continue PPI (8) Obstructive sleep apnea Is this a current diagnosis for this admission?: Yes (9) Positive blood culture Is this a current diagnosis for this admission?: Yes Plan: Repeat blood cultures will be ordered to document that there is no true pathogen. This was likely a contaminant. She was positive in 1 out of 2 blood cultures. (10) Hypokalemia Is this a current diagnosis for this admission?: Yes Plan: Repleted and resolved (11) Hyperkalemia Is this a current diagnosis for this admission?: Yes Plan: Little too high today. She will be given a dose of Kayexalate. (12) Full code status Is this a current diagnosis for this admission?: Yes - Time Time Spent with patient: 25-34 minutes - Inpatient Certification Based on my medical assessment, after consideration of the patient's comorbidities, presenting symptoms, or acuity I expect that the services needed warrant INPATIENT care.: Yes I certify that my determination is in accordance with my understanding of Medicare's requirements for reasonable and necessary INPATIENT services [42 CFR 412.3e].: Yes Medical Necessity: Need for Nebulizer Therapy and Monitoring of Response, Other - Inpatient hospitalization remains necessary. We are transitioning the patient over to oral therapies today. She may require home oxygen therapy. I am going to get pulmonology to evaluate the patient and see if they can assist us with getting her CPAP or BiPAP machine at home. Timing of disposition will be determined by her clinical course but I am hopeful that she will be stable for discharge in the next 24-48 hours.
[2018-03-19] MEDS: LEVOFLOXACIN 750 MG TABLET PO SCH (21:41)
[2018-03-19] MEDS: CETIRIZINE 10 MG TABLET PO SCH (21:41)
[2018-03-20] MEDS: LEVALBUTEROL HCL NEB 0.63 MG/3 ML AMPUL NEB PRN ×7 (00:25→23:45)
[2018-03-20 06:14] LABS: HEMATOCRIT 34.7 % (36.0-47.0); HEMOGLOBIN 11.1 g/dL (12.0-15.5); MEAN CORPUSCULAR HEMOGLOBIN 26.2 pg (27.0-33.4); MEAN CORPUSCULAR HGB CONC 31.9 g/dL (32.0-36.0); MEAN CORPUSCULAR VOLUME 82 fl (80-97); PLATELET COUNT 382 10^3/uL (150-450); RED BLOOD COUNT 4.22 10^6/uL (3.72-5.28); RED CELL DISTRIBUTION WIDTH 18.7 % (11.5-14.0); WHITE BLOOD COUNT 17.8 10^3/uL (4.0-10.5)
[2018-03-20] MEDS: ACETAMINOPHEN 325 MG TABLET PO PRN (06:20)
[2018-03-20] MEDS: LANSOPRAZOLE 30 MG TAB.RAP.DR PO SCH (06:20)
[2018-03-20 06:40] LABS: ANION GAP 9 (5-19); BLOOD UREA NITROGEN 29 mg/dL (7-20); CALCIUM 9.3 mg/dL (8.4-10.2); CARBON DIOXIDE 29 mmol/L (22-30); CHLORIDE 104 mmol/L (98-107); GLUCOSE 204 mg/dL (75-110); POTASSIUM 4.7 mmol/L (3.6-5.0); SODIUM 142.4 mmol/L (137-145)
[2018-03-20 07:19] LABS: ABSOLUTE LYMPHOCYTES# (MANUAL) 3.7 10^3/uL (0.5-4.7); ABSOLUTE MONOCYTES # (MANUAL) 1.1 10^3/uL (0.1-1.4); BAND NEUTROPHILS % (MANUAL) 3 % (3-5); BASOPHILS % (MANUAL) 0 % (0-2); EOSINOPHILS % (MANUAL) 0 % (0-6); HYPOCHROMASIA SLIGHT; LYMPHOCYTES % (MANUAL) 21 % (13-45); METAMYELOCYTES % (MANUAL) 1 % (0); MONOCYTES % (MANUAL) 6 % (3-13); PLATELET COMMENT ADEQUATE; POLYCHROMASIA SLIGHT; SEGMENTED NEUTROPHILS % (MAN) 69 % (42-78); TOTAL CELLS COUNTED 100; TOXIC GRANULATION 1+
[2018-03-20] MEDS: METFORMIN HCL 500 MG TABLET PO SCH ×2 (08:01→16:28)
[2018-03-20] MEDS: INSULIN LISPRO 100 UNIT/ML 3 ML VIAL SUBCUT PRN ×2 (08:01→18:01)
[2018-03-20] MEDS: LISINOPRIL 10 MG TABLET PO SCH ×2 (10:05→22:10)
[2018-03-20] MEDS: ENOXAPARIN SODIUM INJ 40 MG/0.4 ML DISP.SYRIN SUBCUT SCH (10:05)
[2018-03-20] MEDS: INSULIN GLARGINE,HUM.REC.ANLOG 300 UNIT/3 ML INSULN.PEN SUBCUT SCH (10:05)
[2018-03-20] MEDS: AMLODIPINE BESYLATE 5 MG TABLET PO SCH (10:05)
[2018-03-20] MEDS: PREDNISONE 20 MG TABLET PO SCH (10:05)
--- NOTE | 2018-03-20 17:19 | PDOC PROGRESS REPORT ---
Subjective Progress Note for:: 03/20/18 Subjective:: Patient is an extremely pleasant morbidly obese female who presented to the emergency room with increased shortness of breath. She was found to have evidence of pneumonia as well as an asthma exacerbation. She had recently been discharged from our facility and then traveled by plane to [place]. She started getting sick at the end of her trip. She was not oxygen dependent prior to this hospitalization but as she has improved it is been difficult to wean her off the oxygen. She was transitioned over to oral prednisone and antibiotics yesterday. She is doing amazingly well. The patient clearly has issues with obstructive sleep apnea. Dr. Jacques was consulted to see whether he could make arrangements to get her machine at home as it was felt that this would help her respiratory status. Today the nursing staff is going to see if she is going to require oxygen at discharge. We are tentatively planning her discharge for tomorrow morning and she is looking forward to that. She denies fever chills. No chest pain, she increased shortness of breath or cough. She states her wheezing has resolved. She states she does get short of breath when she ambulates. She still requiring oxygen therapy. She said no nausea vomiting or diarrhea. No urinary complaints. Reason For Visit: [facility] Physical Exam Vital Signs: Temp Pulse Resp BP Pulse Ox 97.7 F 125 H 16 133/73 H 96 03/20/18 11:32 03/20/18 14:00 03/20/18 11:56 03/20/18 11:32 03/20/18 11:32 Intake & Output 03/19/18 03/20/18 03/21/18 06:59 06:59 06:59 Intake Total 472 592 237 Balance 472 592 237 Weight 154.6 kg 156.3 kg Results Laboratory Results: 03/20/18 05:27 03/20/18 05:27 03/20/18 03/20/18 05:27 05:27 WBC 17.8 H RBC 4.22 Hgb 11.1 L Hct 34.7 L MCV 82 MCH 26.2 L MCHC 31.9 L RDW 18.7 H Plt Count 382 Seg Neutrophils % Not Reportable Lymphocytes % Not Reportable Monocytes % Not Reportable Eosinophils % Not Reportable Basophils % Not Reportable Absolute Neutrophils Not Reportable Absolute Lymphocytes Not Reportable Absolute Monocytes Not Reportable Absolute Eosinophils Not Reportable Absolute Basophils Not Reportable Sodium 142.4 Potassium 4.7 Chloride 104 Carbon Dioxide 29 Anion Gap 9 BUN 29 H Creatinine 0.58 Est GFR ( Amer) > 60 Est GFR (Non-Af Amer) > 60 Glucose 204 H Calcium 9.3 Magnesium 1.8 03/17/18 03/17/18 03/17/18 11:30 11:30 17:30 Creatine Kinase 45 52 CK-MB (CK-2) 0.75 Troponin I < 0.012 NT-Pro-B Natriuret Pep 03/17/18 03/18/18 03/18/18 17:30 03:40 03:40 Creatine Kinase 48 CK-MB (CK-2) 0.83 0.95 Troponin I < 0.012 < 0.012 NT-Pro-B Natriuret Pep 03/18/18 03/19/18 17:30 05:39 Creatine Kinase CK-MB (CK-2) Troponin I NT-Pro-B Natriuret Pep 434 H 223 H Impressions: Chest X-Ray 03/18/18 00:00 IMPRESSION: Borderline heart size with no pulmonary edema. Assessment & Plan - Diagnosis (1) Acute respiratory failure with hypoxia Is this a current diagnosis for this admission?: Yes Plan: The patient is borderline hypoxic. Her respiratory failure is multifactorial secondary to pneumonia and underlying asthma exacerbation. There likely is an element of obesity hypoventilation syndrome as well. Pulmonology has seen the patient but their note is not yet available. Nursing staff reports that Dr. Jacques was going to look into whether he can get her machine at home. Nursing staff is going to try to wean her off of the oxygen but she may require home oxygen therapy at discharge. They are going to go to the process of qualifying her today. (2) Pneumonia Is this a current diagnosis for this admission?: Yes Plan: She was initially treated with broad-spectrum antibiotics to cover gram negatives and MRSA due to her recent hospitalization. Her antibiotics have been de-escalated to Levaquin at this point. She is clearly improving. (3) Asthma exacerbation Qualifiers: Asthma severity: unspecified severity Asthma persistence: persistent Qualified Code(s): J45.901 - Unspecified asthma with (acute) exacerbation Is this a current diagnosis for this admission?: Yes Plan: She is successfully been transitioned over to p.o. prednisone. She can complete a prednisone taper at discharge. (4) Obesity hypoventilation syndrome Is this a current diagnosis for this admission?: Yes Plan: She likely has underlying sleep apnea. She would benefit from a CPAP/BiPAP machine at home. She has never had a sleep study. (5) Morbid obesity Is this a current diagnosis for this admission?: Yes Plan: She has a BMI over 70. We discussed different weight loss strategies. She is quite anxious to work on this. (6) Hypertension Is this a current diagnosis for this admission?: Yes (7) GERD (gastroesophageal reflux disease) Is this a current diagnosis for this admission?: Yes (8) Obstructive sleep apnea Is this a current diagnosis for this admission?: Yes (9) Positive blood culture Is this a current diagnosis for this admission?: Yes Plan: 1 out of 2 blood cultures positive for staph epidermidis which is likely a contaminant. Repeat blood cultures are negative to date. (10) Hypokalemia Is this a current diagnosis for this admission?: Yes Plan: Repleted and resolved (11) Hyperkalemia Is this a current diagnosis for this admission?: Yes Plan: Little too high today. She will be given a dose of Kayexalate. (12) Full code status Is this a current diagnosis for this admission?: Yes - Time Time Spent with patient: 25-34 minutes - Inpatient Certification Medical Necessity: Other - Inpatient hospitalization remains necessary. The patient is still requiring oxygen. We are going to see whether she is going to require this at home. Dr. Jacques is looking into getting her a CPAP/BiPAP machine at home. Patient is quite anxious to be discharged and I believe if we get her oxygen set up that she can safely be discharged tomorrow and can follow- up with Dr. Jacques as an outpatient.
[2018-03-20] MEDS: CETIRIZINE 10 MG TABLET PO SCH (22:10)
[2018-03-20] MEDS: LEVOFLOXACIN 750 MG TABLET PO SCH (22:10)
[2018-03-21] MEDS: LANSOPRAZOLE 30 MG TAB.RAP.DR PO SCH (06:12)
[2018-03-21] MEDS: LEVALBUTEROL HCL NEB 0.63 MG/3 ML AMPUL NEB PRN ×4 (08:30→20:40)
[2018-03-21] MEDS: LISINOPRIL 10 MG TABLET PO SCH ×2 (10:27→22:07)
[2018-03-21] MEDS: AMLODIPINE BESYLATE 5 MG TABLET PO SCH (10:28)
[2018-03-21] MEDS: METFORMIN HCL 500 MG TABLET PO SCH ×2 (10:28→16:16)
[2018-03-21] MEDS: INSULIN GLARGINE,HUM.REC.ANLOG 300 UNIT/3 ML INSULN.PEN SUBCUT SCH (10:28)
[2018-03-21] MEDS: ENOXAPARIN SODIUM INJ 40 MG/0.4 ML DISP.SYRIN SUBCUT SCH (10:28)
[2018-03-21] MEDS: PREDNISONE 20 MG TABLET PO SCH (10:28)
[2018-03-21] MEDS ORDERED: FUROSEMIDE 40 MG TABLET PO ONE (11:00)
--- NOTE | 2018-03-21 14:02 | PDOC PROGRESS REPORT ---
Subjective Progress Note for:: 03/21/18 Subjective:: Doing better, breathing improving. Seen by Dr. Jacques of pulmonology and recommended trial of BiPAP tonight and ABG in a.m. Denies chest pain or palpitations, still with shortness of breath with minimal efforts. Denies fever or chills, has dry cough. Reason For Visit: [facility] Physical Exam Vital Signs: Temp Pulse Resp BP Pulse Ox 97.7 F 87 20 130/76 H 99 03/21/18 11:54 03/21/18 11:54 03/21/18 11:54 03/21/18 11:54 03/21/18 11:54 Intake & Output 03/20/18 03/21/18 03/22/18 06:59 06:59 06:59 Intake Total 592 474 422 Balance 592 474 422 Weight 156.3 kg 156.9 kg GEN: NAD, obese, well-developed, well-nourished CV: RRR, NL S1S2 LUNGS: Decreased breath sounds both CTA bilaterally ABDOMEN Soft, NT, +BS EXTERMITIES: No e/c/c NEURO: Alert, oriented 3, nonfocal Results Laboratory Results: 03/20/18 05:27 03/20/18 05:27 03/17/18 03/17/18 03/17/18 11:30 11:30 17:30 Creatine Kinase 45 52 CK-MB (CK-2) 0.75 Troponin I < 0.012 NT-Pro-B Natriuret Pep 03/17/18 03/18/18 03/18/18 17:30 03:40 03:40 Creatine Kinase 48 CK-MB (CK-2) 0.83 0.95 Troponin I < 0.012 < 0.012 NT-Pro-B Natriuret Pep 03/18/18 03/19/18 17:30 05:39 Creatine Kinase CK-MB (CK-2) Troponin I NT-Pro-B Natriuret Pep 434 H 223 H Impressions: Chest X-Ray 03/18/18 00:00 IMPRESSION: Borderline heart size with no pulmonary edema. Assessment & Plan - Plan Summary Plan Summary: (1) Acute respiratory failure with hypoxia Is this a current diagnosis for this admission?: Yes Plan: The patient is borderline hypoxic. Her respiratory failure is multifactorial secondary to pneumonia and underlying asthma exacerbation. There likely is an element of obesity hypoventilation syndrome as well. She has been evaluated by pulmonology. (2) Pneumonia Is this a current diagnosis for this admission?: Yes Plan: She was initially treated with broad-spectrum antibiotics to cover gram negatives and MRSA due to her recent hospitalization. Her antibiotics have been de-escalated to Levaquin at this point. She seems to be improving. Suspect persistent leukocytosis secondary to steroids. (3) Asthma exacerbation Qualifiers: Asthma severity: unspecified severity Asthma persistence: persistent Qualified Code(s): J45.901 - Unspecified asthma with (acute) exacerbation Is this a current diagnosis for this admission?: Yes Plan: IV Solu-Medrol was transitioned to to p.o. prednisone 03/20/18 and patient continues to improve. (4) Obesity hypoventilation syndrome Is this a current diagnosis for this admission?: Yes Plan: She likely has underlying sleep apnea. She has been evaluated by pulmonology. (5) Morbid obesity Is this a current diagnosis for this admission?: Yes Plan: She has a BMI over 70. Weight loss counseling and patient receptive. (6) Hypertension Is this a current diagnosis for this admission?: Yes Plan: Stable (7) GERD (gastroesophageal reflux disease) Is this a current diagnosis for this admission?: Yes Plan: Continue PPI (8) Obstructive sleep apnea Is this a current diagnosis for this admission?: Yes (9) Positive blood culture Is this a current diagnosis for this admission?: Yes Plan: Staph epididymidis, 1 of 2 blood cultures, likely contaminant. Repeat blood cultures negative so far 48 hours.
--- NOTE | 2018-03-21 18:06 | Pulmonary Function Test ---
Pulmonary Function Test Date of Procedure:: 03/21/18 INDICATION:: Dyspnea Referring Provider: Dr. Irving - Report Spirometry: FVC 1.97 L 67% postbronchodilator 2.34 L 80% FEV1 1.62 L 70% postbronchodilator 2.25 L 67% FEV1/FVC % 92 postbronchodilator 96 predicted 90 Impression: Mild obstructive ventilatory defect with good response to bronchodilator therapy. Restrictive defect is implied but cannot be diagnosed based on spirometry alone
--- NOTE | 2018-03-21 19:18 | XCELERA REPORT ---
[address] [address] Transthoracic Echocardiogram Report Name: SUZY GRANDE I Age: 32 yrs Gender: Female : 1985 Patient Status: Inpatient Patient Location: [address] [place] [address] Study Date: 03/20/2018 10:30 AM Procedure: A two-dimensional transthoracic echocardiogram with color flow Doppler was performed. Study Quality: Poor. The study was technically difficult with many images being suboptimal in quality. Reason For Study: rule out chf History: CHF. Ordering Physician: LUIS FELIPE RODNEY Performed By: Cathi Matthew Interpretation Summary LV EF is Probably > than 60% Doppler measurements suggest normal left ventricular diastolic function The left atrium is borderline dilated. There is no evidence of mitral valve prolapse. There is no mitral valve stenosis. There is no mitral regurgitation noted. There is no aortic valve stenosis There is no LVOT obstruction. No aortic regurgitation is present. There is no tricuspid stenosis. No tricuspid regurgitation. nable to calculate RVSP due to lCK OF tr JET. There is no pericardial effusion. The left ventricular wall motion is normal. The left ventricle is grossly normal size. There is normal left ventricular wall thickness. MMode/2D Measurements & Calculations RVDd: 3.8 cm LVIDd: 6.2 cm FS: 36.1 % Ao root diam: 2.7 cm IVSd: 0.92 cm LVIDs: 3.9 cm EDV(Teich): 192.1 ml Ao root area: 5.7 cm2 LVPWd: 0.92 cm ESV(Teich): 67.7 ml EF(Teich): 64.8 % Doppler Measurements & Calculations MV E max ericka: MV dec slope: Ao V2 max: LV V1 max P.5 cm/sec 122.2 cm/sec 3.0 mmHg MV A max ericka: 478.2 cm/sec2 Ao max PG: LV V1 max: 96.6 cm/sec MV dec time: 0.24 sec 6.0 mmHg 86.1 cm/sec MV E/A: 1.2 PA V2 max: 112.9 cm/sec PA max P.1 mmHg Left Ventricle The left ventricle is grossly normal size. There is normal left ventricular wall thickness. LV EF is Probably > than 60%. Left ventricular systolic function is normal. Doppler measurements suggest normal left ventricular diastolic function. The left ventricular wall motion is normal. Right Ventricle The right ventricle is not well visualized secondary to technical limitations. Atria Right atrium not well visualized secondary to technical limitations. The left atrium is borderline dilated. Mitral Valve There is no evidence of mitral valve prolapse. There is no mitral valve stenosis. There is no mitral regurgitation noted. Aortic Valve There is no aortic valve stenosis. There is no LVOT obstruction. No aortic regurgitation is present. Tricuspid Valve There is no tricuspid stenosis. No tricuspid regurgitation. nable to calculate RVSP due to lCK OF tr JET. Pulmonic Valve There is no pulmonic valvular stenosis. There is no pulmonic valvular regurgitation. Great Vessels The aortic root is not well visualized. Effusions There is no pericardial effusion. : LUIS FELIPE RODNEY > Analisa Olivera
[2018-03-21] MEDS: INSULIN LISPRO 100 UNIT/ML 3 ML VIAL SUBCUT PRN (22:06)
[2018-03-21] MEDS: CETIRIZINE 10 MG TABLET PO SCH (22:08)
[2018-03-22] MEDS: LEVALBUTEROL HCL NEB 0.63 MG/3 ML AMPUL NEB PRN ×3 (00:32→14:59)
[2018-03-22] MEDS: LANSOPRAZOLE 30 MG TAB.RAP.DR PO SCH (06:38)
[2018-03-22 07:20] LABS: ABSOLUTE BASOPHILS # (AUTO) 0.1 10^3/uL (0.0-0.2); ABSOLUTE EOSINOPHILS # (AUTO) 0.1 10^3/uL (0.0-0.6); ABSOLUTE LYMPHOCYTES (AUTO) 3.8 10^3/uL (0.5-4.7); ABSOLUTE MONOCYTES (AUTO) 0.8 10^3/uL (0.1-1.4); ABSOLUTE NEUT (AUTO) 10.1 10^3/uL (1.7-8.2); BASOPHILS % (AUTO) 0.6 % (0-2); EOSINOPHILS % (AUTO) 0.6 % (0-6); HEMATOCRIT 33.5 % (36.0-47.0); HEMOGLOBIN 10.7 g/dL (12.0-15.5); LYMPHOCYTES % (AUTO) 25.8 % (13-45); MEAN CORPUSCULAR HEMOGLOBIN 26.4 pg (27.0-33.4); MEAN CORPUSCULAR HGB CONC 31.9 g/dL (32.0-36.0); MEAN CORPUSCULAR VOLUME 83 fl (80-97); MONOCYTES % (AUTO) 5.3 % (3-13); PLATELET COUNT 379 10^3/uL (150-450); RED BLOOD COUNT 4.06 10^6/uL (3.72-5.28); RED CELL DISTRIBUTION WIDTH 18.7 % (11.5-14.0); SEGMENTED NEUTROPHILS % (AUTO) 67.7 % (42-78); TOTAL CELLS COUNTED % (AUTO) 100 %; WHITE BLOOD COUNT 14.9 10^3/uL (4.0-10.5)
[2018-03-22 07:34] LABS: ANION GAP 9 (5-19); BLOOD UREA NITROGEN 26 mg/dL (7-20); CALCIUM 9.5 mg/dL (8.4-10.2); CARBON DIOXIDE 32 mmol/L (22-30); CHLORIDE 98 mmol/L (98-107); GLUCOSE 110 mg/dL (75-110); POTASSIUM 4.3 mmol/L (3.6-5.0); SODIUM 139.4 mmol/L (137-145)
[2018-03-22] MEDS: METFORMIN HCL 500 MG TABLET PO SCH ×2 (08:02→16:59)
[2018-03-22] MEDS: PREDNISONE 20 MG TABLET PO SCH (09:34)
[2018-03-22] MEDS: LISINOPRIL 10 MG TABLET PO SCH ×2 (09:34→21:57)
[2018-03-22] MEDS: ENOXAPARIN SODIUM INJ 40 MG/0.4 ML DISP.SYRIN SUBCUT SCH (09:34)
[2018-03-22] MEDS: INSULIN GLARGINE,HUM.REC.ANLOG 300 UNIT/3 ML INSULN.PEN SUBCUT SCH (09:35)
[2018-03-22] MEDS: AMLODIPINE BESYLATE 5 MG TABLET PO SCH (09:38)
[2018-03-22 10:20] LABS: ARTERIAL BLOOD BASE EXCESS 5.4 mmol/L; ARTERIAL BLOOD H2CO3 1.46 mmol/L (1.05-1.35); ARTERIAL BLOOD HCO3 30.8 mmol/L (20-26); ARTERIAL BLOOD O2 SATURATION 98.2 % (94-98); ARTERIAL BLOOD PCO2 48.5 mmHg (35-45); ARTERIAL BLOOD PH 7.42 (7.35-7.45); ARTERIAL BLOOD TOTAL CO2 32.3 mmol/L (21-25)
[2018-03-22 10:31] LABS: ARTERIAL BLOOD FIO2 4L
--- NOTE | 2018-03-22 16:25 | PDOC PROGRESS REPORT ---
Subjective Subjective:: 32-year-old morbidly obese female admitted with increased shortness of breath and being treated for pneumonia and asthma exacerbation. She still has significant shortness of breath and tachycardic with minimal exertion. She is followed by Dr. Jacques of pulmonology. I spoke with him today, he states he evaluated the patient and she is not quite ready for discharge. Recommend continue steroids for now nebs, O2. Cough has improved, it is dry. Denies chest pain, no nausea or vomiting. Reason For Visit: HCAP Physical Exam Vital Signs: Temp Pulse Resp BP Pulse Ox 97.8 F 86 16 143/65 H 95 03/22/18 11:40 03/22/18 14:59 03/22/18 14:59 03/22/18 11:40 03/22/18 15:39 Intake & Output 03/21/18 03/22/18 03/23/18 06:59 06:59 06:59 Intake Total 474 1422 500 Balance 474 1422 500 Weight 156.9 kg 155.3 kg GEN: Pleasant. NAD, obese, well-developed, well-nourished CV: RRR, NL S1S2 LUNGS: Few expiratory wheezing bilaterally ABDOMEN Soft, NT, +BS EXTERMITIES: No e/c/c NEURO: Alert, oriented 3, nonfocal Results Laboratory Results: 03/22/18 06:01 03/22/18 06:01 03/22/18 03/22/18 03/22/18 06:01 06:01 06:29 WBC 14.9 H RBC 4.06 Hgb 10.7 L Hct 33.5 L MCV 83 MCH 26.4 L MCHC 31.9 L RDW 18.7 H Plt Count 379 Seg Neutrophils % 67.7 Lymphocytes % 25.8 Monocytes % 5.3 Eosinophils % 0.6 Basophils % 0.6 Absolute Neutrophils 10.1 H Absolute Lymphocytes 3.8 Absolute Monocytes 0.8 Absolute Eosinophils 0.1 Absolute Basophils 0.1 Carbonic Acid Cancelled HCO3/H2CO3 Ratio Cancelled ABG pH Cancelled ABG pCO2 Cancelled ABG pO2 Cancelled ABG HCO3 Cancelled ABG O2 Saturation Cancelled ABG Base Excess Cancelled FiO2 Cancelled Sodium 139.4 Potassium 4.3 Chloride 98 Carbon Dioxide 32 H Anion Gap 9 BUN 26 H Creatinine 0.65 Est GFR ( Amer) > 60 Est GFR (Non-Af Amer) > 60 Glucose 110 Calcium 9.5 03/22/18 03/22/18 09:40 09:55 WBC RBC Hgb Hct MCV MCH MCHC RDW Plt Count Seg Neutrophils % Lymphocytes % Monocytes % Eosinophils % Basophils % Absolute Neutrophils Absolute Lymphocytes Absolute Monocytes Absolute Eosinophils Absolute Basophils Carbonic Acid 1.46 H Cancelled HCO3/H2CO3 Ratio 21:1 Cancelled ABG pH 7.42 Cancelled ABG pCO2 48.5 H Cancelled ABG pO2 115.0 H Cancelled ABG HCO3 30.8 H Cancelled ABG O2 Saturation 98.2 H Cancelled ABG Base Excess 5.4 Cancelled FiO2 4L Cancelled Sodium Potassium Chloride Carbon Dioxide Anion Gap BUN Creatinine Est GFR ( Amer) Est GFR (Non-Af Amer) Glucose Calcium 03/17/18 03/17/18 03/17/18 11:30 11:30 17:30 Creatine Kinase 45 52 CK-MB (CK-2) 0.75 Troponin I < 0.012 NT-Pro-B Natriuret Pep 03/17/18 03/18/18 03/18/18 17:30 03:40 03:40 Creatine Kinase 48 CK-MB (CK-2) 0.83 0.95 Troponin I < 0.012 < 0.012 NT-Pro-B Natriuret Pep 03/18/18 03/19/18 17:30 05:39 Creatine Kinase CK-MB (CK-2) Troponin I NT-Pro-B Natriuret Pep 434 H 223 H Impressions: Chest X-Ray 03/18/18 00:00 IMPRESSION: Borderline heart size with no pulmonary edema. Assessment & Plan - Plan Summary Plan Summary: (1) Acute respiratory failure with hypoxia Is this a current diagnosis for this admission?: Yes Plan: The patient is borderline hypoxic. Her respiratory failure is multifactorial secondary to pneumonia and underlying asthma exacerbation. There likely is also an element of obesity hypoventilation syndrome. She has been evaluated by pulmonology and he states nothing to qualify for BiPAP at this time. Follow-up chest x-ray shows no more pneumonia. Will continue steroids, nebulizers for now per marketing coordinator recommendation. (2) Pneumonia Is this a current diagnosis for this admission?: Yes Plan: She was initially treated with broad-spectrum antibiotics to cover gram negatives and MRSA due to her recent hospitalization. Her antibiotics have been de-escalated to Levaquin at this point. The Levaquin has in turn been discontinued as patient has completed 7 days of antibiotics and chest x-ray repeat without infiltrate. Suspect persistent leukocytosis secondary to steroids. (3) Asthma exacerbation Qualifiers: Asthma severity: unspecified severity Asthma persistence: persistent Qualified Code(s): J45.901 - Unspecified asthma with (acute) exacerbation Is this a current diagnosis for this admission?: Yes Plan: IV Solu-Medrol was transitioned to to p.o. prednisone 03/20/18 and patient continues to improve, although slow. (4) Obesity hypoventilation syndrome Is this a current diagnosis for this admission?: Yes Plan: She likely has underlying sleep apnea. She has been evaluated by pulmonology. (5) Morbid obesity Is this a current diagnosis for this admission?: Yes Plan: She has a BMI over 70. Weight loss counseling and patient receptive. (6) Hypertension Is this a current diagnosis for this admission?: Yes Plan: Stable (7) GERD (gastroesophageal reflux disease) Is this a current diagnosis for this admission?: Yes Plan: Continue PPI (8) Obstructive sleep apnea Is this a current diagnosis for this admission?: Yes (9) Positive blood culture Is this a current diagnosis for this admission?: Yes Plan: Staph epididymidis, 1 of 2 blood cultures, likely contaminant. Repeat blood cultures negative so far 72 hours.
[2018-03-22] MEDS: INSULIN LISPRO 100 UNIT/ML 3 ML VIAL SUBCUT PRN ×2 (18:17→21:58)
[2018-03-22] MEDS: CETIRIZINE 10 MG TABLET PO SCH (21:58)
[2018-03-23] MEDS: LANSOPRAZOLE 30 MG TAB.RAP.DR PO SCH (06:34)
[2018-03-23] MEDS: METFORMIN HCL 500 MG TABLET PO SCH ×2 (07:55→17:26)
[2018-03-23] MEDS: LEVALBUTEROL HCL NEB 0.63 MG/3 ML AMPUL NEB PRN ×3 (07:56→16:31)
[2018-03-23] MEDS: AMLODIPINE BESYLATE 5 MG TABLET PO SCH (09:12)
[2018-03-23] MEDS: PREDNISONE 20 MG TABLET PO SCH (09:12)
[2018-03-23] MEDS: LISINOPRIL 10 MG TABLET PO SCH ×2 (09:12→22:00)
[2018-03-23] MEDS: INSULIN GLARGINE,HUM.REC.ANLOG 300 UNIT/3 ML INSULN.PEN SUBCUT SCH (09:13)
[2018-03-23] MEDS: ENOXAPARIN SODIUM INJ 40 MG/0.4 ML DISP.SYRIN SUBCUT SCH (09:13)
--- NOTE | 2018-03-23 16:02 | PDOC PROGRESS REPORT ---
Subjective Progress Note for:: 03/23/18 Subjective:: rm was admitted with difficulty breathing and shortness of breath and been treated with antibiotics for pneumonia and obstructive airway exacerbation. She is still tachypneic and tachycardic with minimal exertion. Patient tells me that we waiting for some home equipment including oxygen and nebulizer treatment. She thinks she is doing better. Reason For Visit: HCAP Physical Exam Vital Signs: Temp Pulse Resp BP Pulse Ox 97.9 F 84 16 144/79 H 96 03/23/18 11:34 03/23/18 12:14 03/23/18 12:14 03/23/18 11:34 03/23/18 12:14 Intake & Output 03/22/18 03/23/18 03/24/18 06:59 06:59 06:59 Intake Total 1422 1462 422 Balance 1422 1462 422 Weight 155.3 kg 153.2 kg General appearance: PRESENT: no acute distress, morbidly obese, well-developed, well-nourished Head exam: PRESENT: atraumatic, normocephalic Eye exam: PRESENT: conjunctiva pink, EOMI, PERRLA. ABSENT: scleral icterus Ear exam: PRESENT: normal external ear exam Mouth exam: PRESENT: moist, tongue midline Neck exam: ABSENT: carotid bruit, JVD, lymphadenopathy, thyromegaly Respiratory exam: PRESENT: clear to auscultation rocky, crackles. ABSENT: rales, rhonchi, wheezes Cardiovascular exam: PRESENT: RRR. ABSENT: diastolic murmur, rubs, systolic murmur Pulses: PRESENT: normal dorsalis pedis pul Vascular exam: PRESENT: normal capillary refill GI/Abdominal exam: PRESENT: normal bowel sounds, soft. ABSENT: distended, guarding, mass, organolmegaly, rebound, tenderness Rectal exam: PRESENT: deferred Extremities exam: PRESENT: full ROM. ABSENT: calf tenderness, clubbing, pedal edema Neurological exam: PRESENT: alert, awake, oriented to person, oriented to place , oriented to time, oriented to situation, CN II-XII grossly intact. ABSENT: motor sensory deficit Psychiatric exam: PRESENT: appropriate affect, normal mood. ABSENT: homicidal ideation, suicidal ideation Skin exam: PRESENT: dry, intact, warm. ABSENT: cyanosis, rash Results Laboratory Results: 03/22/18 06:01 03/22/18 06:01 03/17/18 03/17/18 03/17/18 11:30 11:30 17:30 Creatine Kinase 45 52 CK-MB (CK-2) 0.75 Troponin I < 0.012 NT-Pro-B Natriuret Pep 03/17/18 03/18/18 03/18/18 17:30 03:40 03:40 Creatine Kinase 48 CK-MB (CK-2) 0.83 0.95 Troponin I < 0.012 < 0.012 NT-Pro-B Natriuret Pep 03/18/18 03/19/18 17:30 05:39 Creatine Kinase CK-MB (CK-2) Troponin I NT-Pro-B Natriuret Pep 434 H 223 H Impressions: Chest X-Ray 03/18/18 00:00 IMPRESSION: Borderline heart size with no pulmonary edema. Assessment & Plan - Time Time Spent with patient: 15-24 minutes Smoking Cessation Education: 3 to 10 minutes Medications reviewed and adjusted accordingly: Yes Anticipated discharge: Home Within: within 48 hours - Inpatient Certification Based on my medical assessment, after consideration of the patient's comorbidities, presenting symptoms, or acuity I expect that the services needed warrant INPATIENT care.: Yes Medical Necessity: Need for Nebulizer Therapy and Monitoring of Response, Risk of Complication if Not Cared For in Hospital - Plan Summary Plan Summary: P Acute hypoxemic respiratory failure likely secondary to pneumonia and underlying asthma exacerbation and possibly obesity hypoventilation syndrome. Patient has been advised of the need to lose weight. We will continue to taper steroids gently. 2. Pneumonia currently off Levaquin after completing 7 days of treatment. Preparation Department Supervisor leukocytosis likely secondary to steroids. 3. Asthma exacerbation with clinical improvement 4. Obesity hypoventilation syndrome contributing to underlying lung disease 5. Morbid obesity with BMI of over 70 patient is receptive to weight loss but she likely will need more help as outpatient 6. Hypertension stable 7. Gastroesophageal reflux disease PPI 8. Positive blood cultures likely contaminant no evidence of bacteremia clinically 9. Obstructive sleep apnea
[2018-03-23] MEDS: INSULIN LISPRO 100 UNIT/ML 3 ML VIAL SUBCUT PRN (17:26)
[2018-03-23 17:38] LABS: ANION GAP 16 (5-19); BLOOD UREA NITROGEN 23 mg/dL (7-20); CALCIUM 9.7 mg/dL (8.4-10.2); CARBON DIOXIDE 23 mmol/L (22-30); CHLORIDE 99 mmol/L (98-107); GLUCOSE 210 mg/dL (75-110); POTASSIUM 4.7 mmol/L (3.6-5.0); SODIUM 138.2 mmol/L (137-145)
[2018-03-23] MEDS: CETIRIZINE 10 MG TABLET PO SCH (22:00)
[2018-03-23] MEDS: NYSTATIN TOPICAL POWDER 15 GM TP SCH (22:01)
--- NOTE | 2018-03-23 22:03 | DRAGON STRESS TEST REPORT ---
2 Day Intravenous Lexiscan Cardiolite stress test using single photon emmision computerized tomography. Date of Resting procedure: 03/19/2018. Date of Stress procedure: 03/18/2018. Ordering Provider: Dr. Liat Irving. Patient Status: In Patient. Indication: Shortness of breath. Coronary risk factors: Diabetes mellitus, hypertension, and family history of coronary artery disease. Resting EKG: Stress EKG: No changes of ischemia. Reason for termination: Protocol. Conclusions: Normal EKG and hemodynamic response to IV Lexiscan. Nuclear data: On 03/18/2018, the patient was given intravenous Lexiscan at a dose of 0.4 mg in 5 mL intravenously, followed by flush with normal saline. Subsequently the stress dose of 40.2 millicuries of technetium 99m sestamibi was injected intravenously. As per protocol stress gated images were obtained. On 03/19/2018,, at rest the patient was given 41.4 millicuries of technetium 99m sestamibi injected intravenously. As per protocol rest non gated SPECT images were obtained. Nuclear interpretation: Review of images showed that is a poor quality study, with breast attenuation artifact of the anterior wall, and bowel contamination artifact of the inferior wall. Very difficult study to interpret. In spite of this probably all segments of the myocardium had normal perfusion at rest, and normal perfusion post stress with IV Lexiscan. All segments of the myocardium had normal motion, contraction, and thickening by gated study. T. I D. ratio was normal at 1.06. Computer read rest, and stress left ventricular ejection fraction were 46 %, and 40 %, respectively. Visually both the stress and rest ejection fractions were normal, and greater than 55%. Conclusion: 1. There is no scintigraphic evidence of Lexiscan induced myocardial ischemia. 2. There is no scintigraphic evidence of myocardial infarction/scar. Recommendations: 1. In view of the poor quality of the study, would strongly recommend close cardiology follow-up for vigilance on symptoms of coronary artery disease. 2. Check echo for LVEF correlation 3, Aggressive risk factor modification, and treating the underlying co- morbidities. Discussed with the hospitalist taking care of the patient. DARCY
[2018-03-24 04:54] LABS: ABSOLUTE BASOPHILS # (AUTO) 0.1 10^3/uL (0.0-0.2); ABSOLUTE EOSINOPHILS # (AUTO) 0.1 10^3/uL (0.0-0.6); ABSOLUTE LYMPHOCYTES (AUTO) 4.4 10^3/uL (0.5-4.7); ABSOLUTE NEUT (AUTO) 11.5 10^3/uL (1.7-8.2); BASOPHILS % (AUTO) 0.6 % (0-2); EOSINOPHILS % (AUTO) 0.4 % (0-6); HEMATOCRIT 33.4 % (36.0-47.0); HEMOGLOBIN 10.7 g/dL (12.0-15.5); LYMPHOCYTES % (AUTO) 25.7 % (13-45); MEAN CORPUSCULAR HEMOGLOBIN 26.4 pg (27.0-33.4); MEAN CORPUSCULAR HGB CONC 32.1 g/dL (32.0-36.0); MEAN CORPUSCULAR VOLUME 82 fl (80-97); MONOCYTES % (AUTO) 5.6 % (3-13); PLATELET COUNT 371 10^3/uL (150-450); RED BLOOD COUNT 4.06 10^6/uL (3.72-5.28); RED CELL DISTRIBUTION WIDTH 18.5 % (11.5-14.0); SEGMENTED NEUTROPHILS % (AUTO) 67.7 % (42-78); TOTAL CELLS COUNTED % (AUTO) 100 %
[2018-03-24] MEDS: LANSOPRAZOLE 30 MG TAB.RAP.DR PO SCH (07:02)
[2018-03-24] MEDS: METFORMIN HCL 500 MG TABLET PO SCH ×2 (08:32→17:03)
[2018-03-24] MEDS: PREDNISONE 20 MG TABLET PO SCH (11:23)
[2018-03-24] MEDS: AMLODIPINE BESYLATE 5 MG TABLET PO SCH (11:24)
[2018-03-24] MEDS: LISINOPRIL 10 MG TABLET PO SCH (11:24)
[2018-03-24] MEDS: NYSTATIN TOPICAL POWDER 15 GM TP SCH ×2 (11:25→21:07)
[2018-03-24] MEDS: ENOXAPARIN SODIUM INJ 40 MG/0.4 ML DISP.SYRIN SUBCUT SCH (11:25)
[2018-03-24] MEDS: INSULIN GLARGINE,HUM.REC.ANLOG 300 UNIT/3 ML INSULN.PEN SUBCUT SCH (11:26)
--- NOTE | 2018-03-24 15:43 | PDOC PROGRESS REPORT ---
Subjective Progress Note for:: 03/24/18 Subjective:: rm was admitted with difficulty breathing and shortness of breath and been treated with antibiotics for pneumonia and obstructive airway exacerbation. She is still tachypneic and tachycardic with minimal exertion. Patient tells me that we waiting for some home equipment including oxygen and nebulizer treatment. She thinks she is doing better. She is still pretty tachypneic on ambulation. Reason For Visit: HCAP Physical Exam Vital Signs: Temp Pulse Resp BP Pulse Ox 97.9 F 88 12 135/72 H 96 03/24/18 07:37 03/24/18 07:37 03/24/18 07:37 03/24/18 07:37 03/24/18 07:37 Intake & Output 03/23/18 03/24/18 03/25/18 06:59 06:59 06:59 Intake Total 1462 1062 100 Balance 1462 1062 100 Weight 153.2 kg 152 kg General appearance: PRESENT: no acute distress, morbidly obese, well-developed, well-nourished Head exam: PRESENT: atraumatic, normocephalic Eye exam: PRESENT: conjunctiva pink, EOMI, PERRLA. ABSENT: scleral icterus Ear exam: PRESENT: normal external ear exam Mouth exam: PRESENT: moist, tongue midline Neck exam: ABSENT: carotid bruit, JVD, lymphadenopathy, thyromegaly Respiratory exam: PRESENT: clear to auscultation rocky. ABSENT: rales, rhonchi, wheezes Cardiovascular exam: PRESENT: RRR, +S1, +S2. ABSENT: diastolic murmur, rubs, systolic murmur Pulses: PRESENT: normal dorsalis pedis pul Vascular exam: PRESENT: normal capillary refill GI/Abdominal exam: PRESENT: normal bowel sounds, soft. ABSENT: distended, guarding, mass, organolmegaly, rebound, tenderness Rectal exam: PRESENT: deferred Extremities exam: PRESENT: full ROM. ABSENT: calf tenderness, clubbing, pedal edema Neurological exam: PRESENT: alert, awake, oriented to person, oriented to place , oriented to time, oriented to situation, CN II-XII grossly intact. ABSENT: motor sensory deficit Psychiatric exam: PRESENT: appropriate affect, normal mood. ABSENT: homicidal ideation, suicidal ideation Skin exam: PRESENT: dry, intact, warm. ABSENT: cyanosis, rash Results Laboratory Results: 03/24/18 04:41 03/23/18 17:16 03/23/18 03/24/18 17:16 04:41 WBC 17.0 H RBC 4.06 Hgb 10.7 L Hct 33.4 L MCV 82 MCH 26.4 L MCHC 32.1 RDW 18.5 H Plt Count 371 Seg Neutrophils % 67.7 Lymphocytes % 25.7 Monocytes % 5.6 Eosinophils % 0.4 Basophils % 0.6 Absolute Neutrophils 11.5 H Absolute Lymphocytes 4.4 Absolute Monocytes 1.0 Absolute Eosinophils 0.1 Absolute Basophils 0.1 Sodium 138.2 Potassium 4.7 Chloride 99 Carbon Dioxide 23 Anion Gap 16 BUN 23 H Creatinine 0.52 Est GFR ( Amer) > 60 Est GFR (Non-Af Amer) > 60 Glucose 210 H Calcium 9.7 03/19/18 11:54 Blood Blood Culture - Final NO GROWTH IN 5 DAYS 03/19/18 11:10 Blood Blood Culture - Final NO GROWTH IN 5 DAYS 03/17/18 03/17/18 03/17/18 11:30 11:30 17:30 Creatine Kinase 45 52 CK-MB (CK-2) 0.75 Troponin I < 0.012 NT-Pro-B Natriuret Pep 03/17/18 03/18/18 03/18/18 17:30 03:40 03:40 Creatine Kinase 48 CK-MB (CK-2) 0.83 0.95 Troponin I < 0.012 < 0.012 NT-Pro-B Natriuret Pep 03/18/18 03/19/18 17:30 05:39 Creatine Kinase CK-MB (CK-2) Troponin I NT-Pro-B Natriuret Pep 434 H 223 H Impressions: Chest X-Ray 03/18/18 00:00 IMPRESSION: Borderline heart size with no pulmonary edema. Assessment & Plan - Time Time Spent with patient: 15-24 minutes Medications reviewed and adjusted accordingly: Yes Anticipated discharge: Home Within: within 24 hours - Inpatient Certification Based on my medical assessment, after consideration of the patient's comorbidities, presenting symptoms, or acuity I expect that the services needed warrant INPATIENT care.: Yes Medical Necessity: Need Close Monitoring Due to Risk of Patient Decompensation, Risk of Complication if Not Cared For in Hospital - Plan Summary Plan Summary: 1. Acute hypoxemic respiratory failure likely secondary to pneumonia and underlying asthma exacerbation and possibly obesity hypoventilation syndrome. Will start on metoprolol as she remains tachycardic on ambulation. 2. Pneumonia currently off Levaquin after completing 7 days of treatment. Leukocytosis likely secondary to steroids. 3. Asthma exacerbation with clinical improvement. Gradual taper of steroids 4. Obesity hypoventilation syndrome contributing to underlying lung disease 5. Morbid obesity with BMI of over 70 patient is receptive to weight loss but she likely will need more help as outpatient 6. Hypertension stable 7. Gastroesophageal reflux disease PPI 8. Positive blood cultures likely contaminant no evidence of bacteremia clinically 9. Obstructive sleep apnea
[2018-03-24] MEDS: INSULIN LISPRO 100 UNIT/ML 3 ML VIAL SUBCUT PRN (17:03)
[2018-03-24] MEDS: METOPROLOL SUCCINATE 25 MG TAB.SR.24H PO SCH (17:40)
[2018-03-24] MEDS: CETIRIZINE 10 MG TABLET PO SCH (21:07)
[2018-03-25] MEDS: LANSOPRAZOLE 30 MG TAB.RAP.DR PO SCH (05:33)
[2018-03-25] MEDS: LEVALBUTEROL HCL NEB 0.63 MG/3 ML AMPUL NEB PRN ×3 (08:24→21:16)
[2018-03-25] MEDS: METFORMIN HCL 500 MG TABLET PO SCH ×2 (08:44→17:15)
[2018-03-25] MEDS: PREDNISONE 20 MG TABLET PO SCH (11:10)
[2018-03-25] MEDS: INSULIN GLARGINE,HUM.REC.ANLOG 300 UNIT/3 ML INSULN.PEN SUBCUT SCH (11:11)
[2018-03-25] MEDS: LISINOPRIL 10 MG TABLET PO SCH (11:11)
[2018-03-25] MEDS: METOPROLOL SUCCINATE 25 MG TAB.SR.24H PO SCH ×2 (11:11→21:54)
[2018-03-25] MEDS: AMLODIPINE BESYLATE 5 MG TABLET PO SCH (11:11)
[2018-03-25] MEDS: NYSTATIN TOPICAL POWDER 15 GM TP SCH ×2 (11:13→21:54)
[2018-03-25] MEDS: ENOXAPARIN SODIUM INJ 40 MG/0.4 ML DISP.SYRIN SUBCUT SCH (11:13)
--- NOTE | 2018-03-25 13:44 | PDOC PROGRESS REPORT ---
Subjective Progress Note for:: 03/25/18 Subjective:: rm was admitted with difficulty breathing and shortness of breath and been treated with antibiotics for pneumonia and obstructive airway exacerbation. She is still tachypneic and tachycardic with minimal exertion. Patient tells me that we waiting for some home equipment including oxygen and nebulizer treatment. She thinks she is doing better. She feels better today. Reason For Visit: HCAP Physical Exam Vital Signs: Temp Pulse Resp BP Pulse Ox 97.6 F 81 14 118/58 L 97 03/25/18 11:13 03/25/18 11:13 03/25/18 11:13 03/25/18 11:13 03/25/18 11:13 Intake & Output 03/24/18 03/25/18 03/26/18 06:59 06:59 06:59 Intake Total 1062 1290 322 Balance 1062 1290 322 Weight 152 kg 150.8 kg General appearance: PRESENT: no acute distress, morbidly obese, well-developed, well-nourished Head exam: PRESENT: atraumatic, normocephalic Eye exam: PRESENT: conjunctiva pink, EOMI, PERRLA. ABSENT: scleral icterus Ear exam: PRESENT: normal external ear exam Mouth exam: PRESENT: moist, tongue midline Neck exam: ABSENT: carotid bruit, JVD, lymphadenopathy, thyromegaly Respiratory exam: PRESENT: decreased breath sounds. ABSENT: rales, rhonchi, wheezes Cardiovascular exam: PRESENT: RRR. ABSENT: diastolic murmur, rubs, systolic murmur Pulses: PRESENT: normal dorsalis pedis pul Vascular exam: PRESENT: normal capillary refill GI/Abdominal exam: PRESENT: normal bowel sounds, soft. ABSENT: distended, guarding, mass, organolmegaly, rebound, tenderness Rectal exam: PRESENT: deferred Extremities exam: PRESENT: full ROM. ABSENT: calf tenderness, clubbing, pedal edema Neurological exam: PRESENT: alert, awake, oriented to person, oriented to place , oriented to time, oriented to situation, CN II-XII grossly intact. ABSENT: motor sensory deficit Psychiatric exam: PRESENT: appropriate affect, normal mood. ABSENT: homicidal ideation, suicidal ideation Skin exam: PRESENT: dry, intact, warm. ABSENT: cyanosis, rash Results Laboratory Results: 03/24/18 04:41 03/23/18 17:16 08/14/18 11:54 Blood Blood Culture - Final NO GROWTH IN 5 DAYS 03/19/18 11:10 Blood Blood Culture - Final NO GROWTH IN 5 DAYS 03/17/18 03/17/18 03/17/18 11:30 11:30 17:30 Creatine Kinase 45 52 CK-MB (CK-2) 0.75 Troponin I < 0.012 NT-Pro-B Natriuret Pep 03/17/18 03/18/18 03/18/18 17:30 03:40 03:40 Creatine Kinase 48 CK-MB (CK-2) 0.83 0.95 Troponin I < 0.012 < 0.012 NT-Pro-B Natriuret Pep 03/18/18 03/19/18 17:30 05:39 Creatine Kinase CK-MB (CK-2) Troponin I NT-Pro-B Natriuret Pep 434 H 223 H Impressions: Chest X-Ray 03/18/18 00:00 IMPRESSION: Borderline heart size with no pulmonary edema. Assessment & Plan - Time Time Spent with patient: 15-24 minutes Medications reviewed and adjusted accordingly: Yes Anticipated discharge: Home Within: within 24 hours - Inpatient Certification Based on my medical assessment, after consideration of the patient's comorbidities, presenting symptoms, or acuity I expect that the services needed warrant INPATIENT care.: Yes Medical Necessity: Need for Nebulizer Therapy and Monitoring of Response - Plan Summary Plan Summary: 1. Acute hypoxemic respiratory failure likely secondary to pneumonia and underlying asthma exacerbation and possibly obesity hypoventilation syndrome. Cont metoprolol 2. Pneumonia currently off Levaquin after completing 7 days of treatment. Leukocytosis likely secondary to steroids. Will recheck CBC in am 3. Asthma exacerbation with clinical improvement. Decrease Prednisone to 30mg 4. Obesity hypoventilation syndrome contributing to underlying lung disease 5. Morbid obesity with BMI of over 70 patient is receptive to weight loss but she likely will need more help as outpatient 6. Hypertension stable 7. Gastroesophageal reflux disease PPI 8. Positive blood cultures likely contaminant no evidence of bacteremia clinically 9. Obstructive sleep apnea 10.Awaiting BIPAP set up at home and if stable dc in am
[2018-03-25] MEDS: INSULIN LISPRO 100 UNIT/ML 3 ML VIAL SUBCUT PRN (17:10)
[2018-03-25] MEDS: CETIRIZINE 10 MG TABLET PO SCH (21:54)
[2018-03-26] MEDS: LEVALBUTEROL HCL NEB 0.63 MG/3 ML AMPUL NEB PRN ×2 (00:30→12:13)
[2018-03-26] MEDS: LANSOPRAZOLE 30 MG TAB.RAP.DR PO SCH (05:25)
[2018-03-26 06:11] LABS: ABSOLUTE BASOPHILS # (AUTO) 0.2 10^3/uL (0.0-0.2); ABSOLUTE EOSINOPHILS # (AUTO) 0.1 10^3/uL (0.0-0.6); ABSOLUTE LYMPHOCYTES (AUTO) 4.5 10^3/uL (0.5-4.7); ABSOLUTE MONOCYTES (AUTO) 1.1 10^3/uL (0.1-1.4); ABSOLUTE NEUT (AUTO) 11.2 10^3/uL (1.7-8.2); EOSINOPHILS % (AUTO) 0.5 % (0-6); HEMATOCRIT 34.4 % (36.0-47.0); HEMOGLOBIN 11.1 g/dL (12.0-15.5); LYMPHOCYTES % (AUTO) 26.6 % (13-45); MEAN CORPUSCULAR HEMOGLOBIN 26.6 pg (27.0-33.4); MEAN CORPUSCULAR HGB CONC 32.3 g/dL (32.0-36.0); MEAN CORPUSCULAR VOLUME 82 fl (80-97); MONOCYTES % (AUTO) 6.2 % (3-13); PLATELET COUNT 335 10^3/uL (150-450); RED BLOOD COUNT 4.18 10^6/uL (3.72-5.28); RED CELL DISTRIBUTION WIDTH 18.6 % (11.5-14.0); SEGMENTED NEUTROPHILS % (AUTO) 65.7 % (42-78); TOTAL CELLS COUNTED % (AUTO) 100 %; WHITE BLOOD COUNT 17.1 10^3/uL (4.0-10.5)
[2018-03-26 06:23] LABS: ANION GAP 10 (5-19); BLOOD UREA NITROGEN 23 mg/dL (7-20); CALCIUM 9.8 mg/dL (8.4-10.2); CARBON DIOXIDE 32 mmol/L (22-30); CHLORIDE 100 mmol/L (98-107); GLUCOSE 109 mg/dL (75-110); POTASSIUM 4.8 mmol/L (3.6-5.0); SODIUM 141.9 mmol/L (137-145)
[2018-03-26] MEDS: METFORMIN HCL 500 MG TABLET PO SCH (08:48)
[2018-03-26] MEDS: LISINOPRIL 10 MG TABLET PO SCH (09:04)
[2018-03-26] MEDS: METOPROLOL SUCCINATE 25 MG TAB.SR.24H PO SCH (09:04)
[2018-03-26] MEDS: ENOXAPARIN SODIUM INJ 40 MG/0.4 ML DISP.SYRIN SUBCUT SCH (09:05)
[2018-03-26] MEDS: INSULIN GLARGINE,HUM.REC.ANLOG 300 UNIT/3 ML INSULN.PEN SUBCUT SCH (09:05)
[2018-03-26] MEDS: NYSTATIN TOPICAL POWDER 15 GM TP SCH (09:06)
[2018-03-26] MEDS: AMLODIPINE BESYLATE 5 MG TABLET PO SCH (09:07)
[2018-03-26] MEDS ORDERED: PREDNISONE 20 MG TABLET PO SCH (10:00)
[2018-03-26 13:24] VITALS: BP 129/70
[2018-03-26] MEDS: INSULIN LISPRO 100 UNIT/ML 3 ML VIAL SUBCUT PRN (13:31)
--- NOTE | 2018-03-26 16:18 | PDOC DISCHARGE SUMMARY ---
General - Admit/Disc Date/PCP Admission Date/Primary Care Provider: 03/13/18 23:51 RUDOLPH CRUZ PA-C Discharge Date: 03/26/18 - Discharge Diagnosis (1) Acute respiratory failure with hypoxia Is this a current diagnosis for this admission?: Yes (2) Asthma exacerbation Is this a current diagnosis for this admission?: Yes (3) Diabetes mellitus type 2 in obese Is this a current diagnosis for this admission?: Yes (4) Hypertension Is this a current diagnosis for this admission?: Yes (5) Hypokalemia Is this a current diagnosis for this admission?: Yes (6) Morbid obesity with BMI of 70 and over, adult Is this a current diagnosis for this admission?: Yes (7) Obesity hypoventilation syndrome Is this a current diagnosis for this admission?: Yes (8) Obstructive sleep apnea Is this a current diagnosis for this admission?: Yes (9) Sepsis Is this a current diagnosis for this admission?: Yes (10) HCAP (healthcare-associated pneumonia) Is this a current diagnosis for this admission?: Yes - Additional Information Resuscitation Status: Full Code Discharge Diet: Cardiac, Diabetic, Other (Comments) Discharge Activity: Activity As Tolerated Prescriptions: Albuterol Sulfate [Albuterol Sulfate 2.5mg/3 mL] 1 vial IH Q4HP PRN #10 vial.neb PRN Reason: Shortness Of Breath Albuterol Sulfate [Proair HFA] 4 puff IH Q4HP PRN #1 hfa.aer.ad PRN Reason: Shortness Of Breath Amlodipine Besylate [Norvasc 5 mg Tablet] 5 mg PO DAILY #30 tablet Insulin Glargine,Hum.rec.anlog [Lantus Insulin 100 Unit/mL] 10 unit SUBCUT DAILY #2 insuln.pen Lisinopril [Prinivil 10 mg Tablet] 20 mg PO DAILY #30 tablet Metformin HCl [Glucophage 500 mg Tablet] 1,000 mg PO BIDACBS #60 tablet Metoprolol Tartrate 37.5 mg PO BID #60 tablet Prednisone [Deltasone 20 mg Tablet] 20 mg PO DAILY #3 tablet Home Medications: Insulin Aspart [Novolog Flexpen] 0 unit SUBCUT .SLD SCALE 03/14/18 Montelukast Sodium [Singulair 10 mg Tablet] 10 mg PO QHS 03/14/18 Albuterol Sulfate [Albuterol Sulfate 2.5mg/3 mL] 1 vial IH Q4HP PRN #10 vial.neb 03/26/18 Albuterol Sulfate [Proair HFA] 4 puff IH Q4HP PRN #1 hfa.aer.ad 03/26/18 Amlodipine Besylate [Norvasc 5 mg Tablet] 5 mg PO DAILY #30 tablet 03/26/18 Cetirizine HCl [Zyrtec 10 mg Tablet] 10 mg PO QHS tablet 03/26/18 Insulin Glargine,Hum.rec.anlog [Lantus Insulin 100 Unit/mL] 10 unit SUBCUT DAILY #2 insuln.pen 03/26/18 Lisinopril [Prinivil 10 mg Tablet] 20 mg PO DAILY #30 tablet 03/26/18 Metformin HCl [Glucophage 500 mg Tablet] 1,000 mg PO BIDACBS #60 tablet Metoprolol Tartrate 37.5 mg PO BID #60 tablet 03/26/18 Nystatin [Mycostatin Topical Powder 15 gm] 1 applic TP Q12 bottle 03/26/18 Prednisone [Deltasone 20 mg Tablet] 20 mg PO DAILY #3 tablet 03/26/18 History of Present Illness History of Present Illness: SUZY GRANDE I is a 32 year old female who was discharged from our facility last month after being hospitalized for bronchial asthma exacerbation. Patient tells me that 3 weeks ago she went to visit family to [facility] and her symptoms came back with nonproductive cough, progressive shortness of breath, wheezing on and off. Also complains of subjective fever with no chills, nausea with no vomiting, pleuritic chest pain. Patient does not follow with any pulmonary physician. Patient has been without medication for several years but recently she had a prescription. There is no documentation that the patient was initially desaturated but she is in obvious respiratory distress, is wearing nasal cannula at 2 L saturating 93% . In the emergency department chest x-ray done which showed possible right middle and lower lobe pneumonia. IV Levaquin and IV vancomycin ordered, along with 125 mg of Solu-Medrol and nebulizer treatments. Initially patient very tachycardic with a heart rate of 119, is still tachycardic and a respiratory rate of 22 Hospital Course Hospital Course: Patient was admitted with respiratory distress. She was found to have a right lower lobe and middle lobe pneumonia and started on Levaquin and vancomycin. She was also treated with steroids intravenously. She was initially septic with tachycardia, tachypnea, leukocytosis and source infection of pneumonia. Patient has gradually improved over her hospital stay. She still requires oxygen supplementation and she ruminates remained tachycardic resulted in starting her on beta-amelia which is controlled her heart rate. Patient required BiPAP ventilation in hospital and these as long as the oxygen has been arranged for her to use at home with follow-up by promotions producer also suggested. Although she still has these leukocytosis this is likely from a steroid which she has been on for some time as patient has been clinically improved. Patient also has a history of asthma and she did have bronchospasm in hospital likely secondary to acute exacerbation. Patient is morbidly obese and she is aware of the need to lose weight for overall health management. Physical Exam Vital Signs: Temp Pulse Resp BP Pulse Ox 98.7 F 91 18 129/70 H 92 03/26/18 13:22 03/26/18 13:22 03/26/18 13:22 03/26/18 13:22 03/26/18 13:22 Intake & Output 03/25/18 03/26/18 03/27/18 06:59 06:59 06:59 Intake Total 1290 1410 222 Balance 1290 1410 222 Weight 150.8 kg 150.4 kg General appearance: PRESENT: no acute distress, morbidly obese, well-developed, well-nourished Head exam: PRESENT: atraumatic, normocephalic Eye exam: PRESENT: conjunctiva pink, EOMI, PERRLA. ABSENT: scleral icterus Ear exam: PRESENT: normal external ear exam Mouth exam: PRESENT: moist, tongue midline Neck exam: ABSENT: carotid bruit, JVD, lymphadenopathy, thyromegaly Respiratory exam: PRESENT: clear to auscultation rocky. ABSENT: rales, rhonchi, wheezes Cardiovascular exam: PRESENT: RRR. ABSENT: diastolic murmur, rubs, systolic murmur Pulses: PRESENT: normal dorsalis pedis pul Vascular exam: PRESENT: normal capillary refill GI/Abdominal exam: PRESENT: normal bowel sounds, soft. ABSENT: distended, guarding, mass, organolmegaly, rebound, tenderness Rectal exam: PRESENT: deferred Extremities exam: PRESENT: full ROM. ABSENT: calf tenderness, clubbing, pedal edema Neurological exam: PRESENT: alert, awake, oriented to person, oriented to place , oriented to time, oriented to situation, CN II-XII grossly intact. ABSENT: motor sensory deficit Psychiatric exam: PRESENT: appropriate affect, normal mood. ABSENT: homicidal ideation, suicidal ideation Skin exam: PRESENT: dry, intact, warm. ABSENT: cyanosis, rash Results Laboratory Results: 03/26/18 05:23 03/26/18 05:23 03/26/18 03/26/18 05:23 05:23 WBC 17.1 H RBC 4.18 Hgb 11.1 L Hct 34.4 L MCV 82 MCH 26.6 L MCHC 32.3 RDW 18.6 H Plt Count 335 Seg Neutrophils % 65.7 Lymphocytes % 26.6 Monocytes % 6.2 Eosinophils % 0.5 Basophils % 1.0 Absolute Neutrophils 11.2 H Absolute Lymphocytes 4.5 Absolute Monocytes 1.1 Absolute Eosinophils 0.1 Absolute Basophils 0.2 Sodium 141.9 Potassium 4.8 Chloride 100 Carbon Dioxide 32 H Anion Gap 10 BUN 23 H Creatinine 0.61 Est GFR ( Amer) > 60 Est GFR (Non-Af Amer) > 60 Glucose 109 Calcium 9.8 03/17/18 03/17/18 03/17/18 11:30 11:30 17:30 Creatine Kinase 45 52 CK-MB (CK-2) 0.75 Troponin I < 0.012 NT-Pro-B Natriuret Pep 03/17/18 03/18/18 03/18/18 17:30 03:40 03:40 Creatine Kinase 48 CK-MB (CK-2) 0.83 0.95 Troponin I < 0.012 < 0.012 NT-Pro-B Natriuret Pep 03/18/18 03/19/18 17:30 05:39 Creatine Kinase CK-MB (CK-2) Troponin I NT-Pro-B Natriuret Pep 434 H 223 H Impressions: Chest X-Ray 03/18/18 00:00 IMPRESSION: Borderline heart size with no pulmonary edema. Qualifiers - * PATIENT BEING DISCHARGED WITH ANY OF THE FOLLOWING DIAGNOSIS: No Plan Time Spent: Greater than 30 Minutes
== END 2018-03-26 14:00 | disposition home or self-care (01) | DRG 189 ==
LOC: ER 20:16 → EH 23:51 → OBSVTOIN 23:51 → 3S 03-14 12:19
PROVIDERS: ADMIT Internal Medicine; ATTEND Internal Medicine
DX: J96.01 Acute respiratory failure with hypoxia (principal); J18.9 Pneumonia, unspecified organism; J45.901 Unspecified asthma with (acute) exacerbation; E66.2 Morbid (severe) obesity with alveolar hypoventilation; Z68.45 Body mass index [BMI] 70 or greater, adult; I10 Essential (primary) hypertension; E11.65 Type 2 diabetes mellitus with hyperglycemia; E87.6 Hypokalemia; E87.5 Hyperkalemia; K21.9 Gastro-esophageal reflux disease without esophagitis; I27.20 Pulmonary hypertension, unspecified; F90.9 Attention-deficit hyperactivity disorder, unspecified type; Z79.4 Long term (current) use of insulin; Z79.51 Long term (current) use of inhaled steroids; Z79.899 Other long term (current) drug therapy; Z79.84 Long term (current) use of oral hypoglycemic drugs; Z87.891 Personal history of nicotine dependence
CPT/HCPCS: 36415; 36600; 71045; 78452; 80048; 80053; 80202; 82550; 82553; 82803; 82962; 83036; 83605; 83735; 83880; 84100; 84484; 85025; 85027; 85379; 87040; 87077; 87186; 93005; 93010; 93017; 93306; 94010; 94640; 94660; 96365; 96366; 96367; 96368; 96375; 99285; A9500; J0360; J0692; J1650; J1815; J1956; J2785; J2920; J2930; J3370; J3475; J3490; J7060; J7512; J7614; J7620; Q9969; S0164

== ENCOUNTER 2019-03-08 18:18 | Emergency (ER) | payer OTHER, MEDICAID ==
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
[2019-03-08 19:33] LABS: ABSOLUTE BASOPHILS # (AUTO) 0.1 10^3/uL (0.0-0.2); ABSOLUTE EOSINOPHILS # (AUTO) 0.5 10^3/uL (0.0-0.6); ABSOLUTE LYMPHOCYTES (AUTO) 4.2 10^3/uL (0.5-4.7); ABSOLUTE MONOCYTES (AUTO) 0.7 10^3/uL (0.1-1.4); BASOPHILS % (AUTO) 0.7 % (0-2); EOSINOPHILS % (AUTO) 3.5 % (0-6); HEMATOCRIT 35.1 % (36.0-47.0); HEMOGLOBIN 11.2 g/dL (12.0-15.5); LYMPHOCYTES % (AUTO) 31.2 % (13-45); MEAN CORPUSCULAR HEMOGLOBIN 24.3 pg (27.0-33.4); MEAN CORPUSCULAR VOLUME 76 fl (80-97); MONOCYTES % (AUTO) 5.1 % (3-13); PLATELET COUNT 439 10^3/uL (150-450); RED BLOOD COUNT 4.62 10^6/uL (3.72-5.28); RED CELL DISTRIBUTION WIDTH 16.5 % (11.5-14.0); SEGMENTED NEUTROPHILS % (AUTO) 59.5 % (42-78); TOTAL CELLS COUNTED % (AUTO) 100 %; WHITE BLOOD COUNT 13.4 10^3/uL (4.0-10.5)
[2019-03-08 19:53] LABS: ALBUMIN 4.1 g/dL (3.5-5.0); ALKALINE PHOSPHATASE 81 U/L (38-126); ANION GAP 11 (5-19); ASPARTATE AMINO TRANSFERASE 66 U/L (14-36); BILIRUBIN,DIRECT 0.3 mg/dL (0.0-0.4); BILIRUBIN,TOTAL 0.3 mg/dL (0.2-1.3); BLOOD UREA NITROGEN 11 mg/dL (7-20); CALCIUM 9.7 mg/dL (8.4-10.2); CARBON DIOXIDE 25 mmol/L (22-30); CHLORIDE 103 mmol/L (98-107); GLUCOSE 105 mg/dL (75-110); POTASSIUM 4.2 mmol/L (3.6-5.0)
[2019-03-08] MEDS ORDERED: IBUPROFEN 800 MG TABLET PO ONE (20:34)
[2019-03-08] MEDS ORDERED: NORMAL SALINE 1000 ML 1,000 ML IV ONE (20:51)
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
[2019-03-08 22:45] LABS: APPEARANCE,URINE CLEAR; BILIRUBIN,URINE NEGATIVE (NEGATIVE); COLOR,URINE YELLOW; GLUCOSE, URINE NEGATIVE (NEGATIVE); KETONES,URINE NEGATIVE (NEGATIVE); LEUKOCYTE ESTERASE,URINE NEGATIVE (NEGATIVE); NITRITE,URINE NEGATIVE (NEGATIVE); PROTEIN,URINE NEGATIVE (NEGATIVE); URINE SPECIFIC GRAVITY 1.042; UROBILINOGEN,URINE NEGATIVE mg/dL (<2.0)
[2019-03-08] MEDS ORDERED: CYCLOBENZAPRINE HCL 10 MG TABLET PO ONE (23:09)
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
[2019-03-08 23:11] VITALS: BP 108/74
--- NOTE | 2019-03-09 01:53 | EKG REPORT ---
SEVERITY:- BORDERLINE ECG - SINUS RHYTHM BORDERLINE LEFT AXIS DEVIATION BORDERLINE T ABNORMALITIES, ANTERIOR LEADS : Confirmed by: Analisa Olivera MD 09-Mar-2019 01:52:40
== END 2019-03-08 23:20 | disposition home or self-care (01) ==
LOC: ER 18:18
DX: R07.89 Other chest pain (principal); M54.6 Pain in thoracic spine; V87.7XXA Person injured in collision between other specified motor vehicles (traffic), initial encounter; I10 Essential (primary) hypertension; J45.909 Unspecified asthma, uncomplicated
CPT/HCPCS: 93005; 99285; 96360; 36415; 85025; 80053; 81001; 71260; 93010; J7030